=== PATIENT | female | born 1960 | race Caucasian/White ===

== ENCOUNTER → 2018-02-08 17:07 | Outpatient (CLI) | payer OTHER, SELFPAY ==
[2018-02-08 18:20] LABS: Thyroid Stim Hormone (TSH) 2.57 uIU/mL (0.358-3.74)
[2018-02-10 11:33] LABS: Hep C Antibodies <0.1 s/co ratio (0.0-0.9)
== END ==
PROVIDERS: Family Provider Family Medicine Geriatric Medicine; PCP Family Medicine Geriatric Medicine; Visit Provider Family Medicine Geriatric Medicine
DX: R53.83 Other fatigue (principal); Z13.89 Encounter for screening for other disorder
CPT/HCPCS: 36415; 84443; 86803

== ENCOUNTER → 2018-03-03 15:49 | Outpatient (CLI) | payer OTHER, SELFPAY | PROVIDERS: Referring Provider Otolaryngology; Visit Provider Otolaryngology | DX: J01.90 Acute sinusitis, unspecified (principal) | CPT/HCPCS: 87070; 87077; 87205 ==

== ENCOUNTER → 2018-03-30 13:15 | Outpatient (CLI) | payer OTHER, SELFPAY ==
--- NOTE | 2018-03-30 13:17 | CT_ITS ---
STUDY: CT MAXILLOFACIAL SINUSES REASON FOR EXAM: Female, 58 years old. Chronic sinusitis, rhinoplasty as teenager, right-sided headache and right-sided sinus drainage RADIATION DOSAGE (If Supplied By Facility): CTDIvol = ( 33.06 ) mGy, DLP = ( 784.26 ) mGycm TECHNIQUE: The patient was scanned in a multi detector CT scanner. High resolution axial imaging was performed without the administration of intravenous contrast material. Sagittal and coronal images were reconstructed. Individualized dose optimization techniques were used for this CT. COMPARISON: None. FINDINGS: FRONTAL SINUSES: There is near complete opacification of the right frontal sinus. The left frontal sinus is normal. ETHMOIDAL SINUSES: There is opacification of multiple anterior right ethmoid air cells. The left ethmoid air cells are preserved. MAXILLARY SINUSES: There is a polypoid defect of the left maxillary sinus measuring 1.5 cm consistent with polyp versus mucoid retention cyst. There is complete opacification of the right maxillary sinus. There is an expansile mass of the right maxillary sinus causing medial bowing of the medial maxillary sinus wall extending into the right nasal cavity. There are several small metallic foreign bodies in the medial right maxillary sinus wall. SPHENOIDAL SINUSES: Normal aeration, without mucosal inflammatory disease. There is absence of the middle nasal turbinates bilaterally. The inferior nasal turbinates are atrophic bilaterally. The anterior nasal septum is displaced slightly to the left of midline. There is compromise of the anterior right nasal cavity. The visualized bilateral orbital contents are normal. CT/Sinus/Facial Bone IMPRESSION: There is complete opacification of the right maxillary sinus, which contains an expansile mass causing medial bowing of the medial maxillary sinus wall extending into the right nasal cavity. This would more likely represent benign process such as mucocele. There are several small metallic foreign bodies in the medial right maxillary sinus wall. There is a 1.5 cm polypoid filling defect of the left maxillary sinus consistent with polyp versus mucoid retention cyst. There is near complete opacification of the right frontal sinus and opacification of multiple anterior right ethmoid air cells. There is absence of the middle nasal turbinates bilaterally, and atrophic inferior nasal turbinates bilaterally. The anterior nasal septum is slightly displaced to the left of midline. There is airway compromise of the anterior right nasal cavity. MRI is recommended for further evaluation. Electronically Signed: Gallito Holley MD at 16:10 EST , Service support ,
== END ==
PROVIDERS: Family Provider Family Medicine Geriatric Medicine; PCP Family Medicine Geriatric Medicine; Referring Provider Otolaryngology; Visit Provider Otolaryngology
DX: J32.9 Chronic sinusitis, unspecified (principal); J33.9 Nasal polyp, unspecified
CPT/HCPCS: 70486

== ENCOUNTER → 2018-04-08 21:07 | Outpatient (CLI) | payer OTHER, SELFPAY ==
[2018-04-08 12:48] VITALS: BMI 24.9
[2018-04-14 19:49] LABS: HPV APTIMA, High Risk Negative (Negative)
== END ==
PROVIDERS: Family Provider Family Medicine Geriatric Medicine; PCP Family Medicine Geriatric Medicine; Referring Provider Nurse Practitioner Women's Health; Visit Provider Nurse Practitioner Women's Health
DX: Z12.4 Encounter for screening for malignant neoplasm of cervix (principal)
CPT/HCPCS: 87624; 88175; G0145

== ENCOUNTER → 2018-04-27 06:25 | Outpatient (CLI) | payer OTHER, SELFPAY ==
[2018-04-21 14:56] VITALS: BMI 24.9
[2018-04-27 07:14] LABS: Anion Gap 9 (5-15); BUN 13 mg/dL (7-18); BUN/Creat Ratio 16.4 RATIO (10-20); Calcium,Total 8.8 mg/dL (8.5-10.1); Chloride 107 mmol/L (98-107); Creatinine, Serum 0.79 mg/dL (0.55-1.02); EST Glomerular Filtration Rate 79 mL/min (>60); Est Glom Filt Rate - Afr Amer 95 mL/min (>60); Glucose 91 mg/dL (74-106); Sodium Level 143 mmol/L (136-145)
== END ==
PROVIDERS: Family Provider Family Medicine Geriatric Medicine; PCP Family Medicine Geriatric Medicine; Referring Provider Internal Medicine Cardiovascular Disease; Visit Provider Internal Medicine Cardiovascular Disease
DX: E87.6 Hypokalemia (principal)
CPT/HCPCS: 36415; 80048

== ENCOUNTER → 2018-05-04 06:34 | Outpatient (CLI) | payer OTHER, SELFPAY ==
[2018-04-21 14:56] VITALS: BMI 24.9
--- NOTE | 2018-05-04 06:36 | ECHOCS_ITS ---
Reason For Study: MURMUR Procedure This was a 2D Doppler, Color Flow transthoracic echocardiogram. The study was technically difficult. Contrast injection was performed. Exam performed in department. Left Ventricle Normal LV size. Left ventricular systolic function is normal. The estimated ejection fraction is 70 %. Diastolic function is indeterminate. No regional wall motion abnormalities noted. Right Ventricle Normal RV size. Normal systolic function. Atria Normal left atrium. Normal right atrium. No doppler evidence for ASD. Mitral Valve There is no mitral annular calcification. Normal mitral valve. Trivial mitral valve insufficiency. Tricuspid Valve Normal tricuspid valve. Trivial tricuspid valve insufficiency. Unable to estimate RV systolic pressure/pulmonary artery pressure due to technically difficult study. Aortic Valve Trisinus/trileaflet aortic valve. Normal aortic valve. Pulmonic Valve The pulmonic valve is not well visualized. Trivial pulmonic valve insufficiency. Great Vessels Normal sized aortic root. Pericardium/Pleural No pericardial effusion. Medication Upnxhinp5ea given slow IV push to enhance endocardial definition. MMode/2D Measurements & Calculations LVIDd: 4.8 cm IVSd: 0.68 cm Ao root diam: 2.9 cm LVIDs: 2.9 cm LVPWd: 0.82 cm FS: 38.4 % LAV(MOD-bp): 40.0 ml EDV(MOD-sp4): 70.5 ml EDV(MOD-sp2): 82.3 ml LAV(MOD-bp) Indexed: 23.4 ml/m2 ESV(MOD-sp4): 16.6 ml EF(MOD-sp2): 74.5 % LAV(MOD-sp2): 34.9 ml EF(MOD-sp4): 76.5 % LAV(MOD-sp4): 43.6 ml SV(MOD-sp4): 54.0 ml SV(MOD-sp2): 61.3 ml LA A4 area: 17.4 cm2 LA dimension(2D): 3.7 cm RA A4 area: 12.1 cm2 Time Measurements MV dec time: 0.27 sec Doppler Measurements & Calculations MV E max aly: 95.6 cm/sec Lat Peak E' Aly: 8.9 cm/sec Med Peak E' Aly: 9.8 cm/sec MV A max aly: 77.5 cm/sec E/E' lat: 10.7 E/E' med: 9.7 MV E/A: 1.2 Ao V2 max: 144.0 cm/sec LV V1 max: 133.8 cm/sec PA V2 max: 139.5 cm/sec Ao max P.3 mmHg LV V1 max P.2 mmHg Interpretation Summary The study was technically difficult. Contrast injection was performed. Left ventricular systolic function is normal. The estimated ejection fraction is 70 %. Trivial mitral valve insufficiency. Trivial tricuspid valve insufficiency. Trivial pulmonic valve insufficiency. Unable to estimate RV systolic pressure/pulmonary artery pressure due to technically difficult study. Diastolic function is indeterminate. Ordering Physician: Clovis Garcia Referring Physician: Terry Mcdonnell Chi Performed By: Krys Rivera, JAX, RVT
--- NOTE | 2018-05-04 15:46 | STRESSREP ---
Stress Test Report Date: 05/04/2018 Procedure: Exercise tolerance test/imaging study Indications: Abnormal ECG Consent: Per the patient Procedure: The patient exercised on a Jerel protocol for 4 minutes completing Stage I 1 minute of Stage II achieving a peak heart rate of 153 bpm (95 % predicted maximal heart rate) with a peak blood pressure 182/70 mmHg and a peak MET capacity of 5 METs. The baseline ECG demonstrated normal sinus rhythm; PACs; nonspecific ST/T wave abnormality. The peak exercise ECG demonstrated continued ST/T wave abnormality-more prominent ST segment changes compared to baseline. There were occasional PACs pretest; occasional PVCs and ventricular couplets during exercise and early recovery. The functional capacity was considered decreased. There was no complaint of chest discomfort during exercise or recovery. The examination was discontinued secondary to dyspnea. Impression: 1. Technically adequate (percent predicted maximal heart rate greater than 85%) exercise tolerance test 2. Peak exercise ECG with continued ST/T wave abnormality-more prominent ST segment changes compared to baseline 3. There were occasional PACs pretest; occasional PVCs and ventricular couplets during exercise and early recovery 4. Nuclear images pending Comment: Heart rate response compatible with a deconditioned heart rate response Myocardial perfusion imaging study: Technique: The patient was injected with 11 mCi of technetium 99m Cardiolite and subsequently rest SPECT Cardiolite nuclear imaging was obtained in the horizontal long, vertical long, and short axis views. The patient exercised on a Jerel protocol for 4 minutes completing Stage I and 1 minute of Stage II achieving a peak heart rate of 153 bpm (95 % predicted maximal heart rate) with a peak blood pressure 182/70 mmHg and a peak MET capacity of 5 METs. The patient was injected with 32.3 mCi of technetium 99m Cardiolite and subsequently stress SPECT Cardiolite nuclear imaging was obtained in the horizontal long, vertical long, and short axis views. A gated Cardiolite study at peak stress was obtained. Interpretation: Rest and stress SPECT Cardiolite nuclear imaging status post realignment, normalization, and attenuation correction, demonstrates the appearance of relative uniform tracer uptake and myocardial perfusion appearing within normal limits. There is end systolic thickening and brightening. The gated Cardiolite study demonstrates myocardial thickening and inward wall motion. The reported LVEF is 90 %. Impression: 1. Rest and stress SPECT Cardiolite nuclear imaging demonstrate relative uniform tracer uptake and myocardial perfusion appearing within normal limits. 2. The gated Cardiolite study reports an LVEF of 90 %. This note was generated with [employer] software. It may contain incorrect words, spelling, and punctuation that were not noted in checking the note before signing.
--- OUTSIDE RECORDS SUMMARY | 2018-06-20 05:11 | XMS RPT_ITS ---
:1960 Author Organization OHIP Support Name Relationship Address Phone VIOLETA BANERJEE Unavailable [address] + [place] [address] [facility] Unavailable [address] + [place] [address] WOHLFORD, NICO Unavailable [address] + [place] [address] VIOLETA BANERJEE Unavailable [address] + [place] [address] [facility] Unavailable [address] + [place] [address] WOHLFORD, NICO Unavailable [address] + [place] [address] VIOLETA BANERJEE Unavailable [address] + [place] . [facility] Unavailable [address] + [place] [address] WOHLFORD, NICO Unavailable [address] + [place] [address] VIOLETA BANERJEE Unavailable [address] + [place] . [facility] Unavailable [address] + [place] [address] WOHLFORD, NICO Unavailable [address] + [place] [address] VIOLETA BANERJEE Unavailable [address] + [place] . [facility] Unavailable [address] + [place] [address] WOHLFORD, NICO Unavailable [address] + [place] [address] VIOLETA BANERJEE Unavailable [address] + [place], [place] . H Unavailable [address] + [place] [address] WOHLFORD, NICO Unavailable [address] + [place] [address] BANERJEE, VIOLETA Unavailable [address] + [place] [facility] Unavailable [address] + [place] [address] WOHLFORD, NICO Unavailable [address] + [place] [address] BANERJEE, VIOLETA Unavailable Unavailable + [place] [facility] Unavailable [address] + [place] [address] WOHLFORD, NICO Unavailable [address] + [place] [address] BANERJEE, VIOLETA Unavailable Unavailable + [place] [facility] Unavailable [address] + [place] [address] WOHLFORD, NICO Unavailable [address] + [place] [address] BANERJEE, VIOLETA Unavailable Unavailable + [place] [facility] Unavailable [address] + [place] [address] WOHLFORD, NICO Unavailable [address] + [place] [address] BANERJEE, VIOLETA Unavailable Unavailable + [place] [facility] Unavailable [address] + [place] [address] WOHLFORD, NICO Unavailable [address] + [place] [address] BANERJEE, VIOLETA Unavailable . + ., . . [facility] Unavailable [address] + [place] [address] WOHLFORD, NICO Unavailable [address] + [place] [address] BANERJEEGRETELVIOLETA Unavailable Unavailable + [facility] Unavailable [address] + [place] [address] WOHLFORD, NICO Unavailable [address] + [place] [address] GRETEL BANERJEENIFER Unavailable Unavailable + [facility] Unavailable [address] + [place] [address] WOHLFORD, NICO Unavailable [address] + [place] [address] BANERJEEGRETELVIOLETA Unavailable Unavailable + [facility] Unavailable [address] + [place] [address] WOHLFORD, NICO Unavailable [address] + [place] [address] BANERJEEGRETELVIOLETA Unavailable . + ., [place] . [facility] Unavailable [address] + [place] [address] WOHLFORD, NICO Unavailable [address] + [place] [address] ERON BANERJEEFER Unavailable Unavailable + [facility] Unavailable [address] + [place] [address] WOHLFORD, NICO Unavailable [address] + [place] [address] [facility] Unavailable [address] + [place] [address] WOHLFORD, NICO Unavailable [address] + [place] [address] [facility] Un[address] + [place] [address] WOHLFORD, NICO Unavailable [address] + [place] [address] Care Team Providers Name Role Phone Clovis Garcia Attending Unavailable Clovis Garcia Referring Unavailable Ingris Helton Attending Unavailable Clovis Garcia Attending Unavailable Moodispaw, Clovis Referring Unavailable Sathya, Terry Chi Primary Care Unavailable Moodispaw, Clovis Attending Unavailable Moodispaw, Clovis Referring Unavailable Sathya, Terry Chi Primary Care Unavailable Moodispaw, Clovis Attending Unavailable Moodispaw, Clovis Referring Unavailable Sathya, Terry Chi Primary Care Unavailable Radha, Clovis Attending Unavailable Ingris Helton Attending Unavailable Ronaldo Luciano Attending Unavailable Benja, Stanford Referring Unavailable BishopMaria T Attending Unavailable Sathya, Terry Chi Primary Care Unavailable BishopLilianay Referring Unavailable Ingris Carlisle Attending Unavailable Sathya, Terry Chi Referring Unavailable Benja, Stanford Attending Unavailable Benja, Stanford Referring Unavailable Sathya, Terry Chi Primary Care Unavailable BishopLilianay Attending Unavailable Sathya, Terry Chi Referring Unavailable Benja, Stanford Attending Unavailable Benja, Stanford Referring Unavailable Sathay, Terry Chi Primary Care Unavailable Benja, Stanford Attending Unavailable Benja, Stanford Referring Unavailable Sathya, Terry Chi Primary Care Unavailable Benja, Stanford Attending Unavailable Benja, Stanford Referring Unavailable Sathya, Terry Chi Attending Unavailable Sathya, Terry Chi Referring Unavailable Sathya, Terry Chi Primary Care Unavailable ASSESSMENT, HEALTH RISK Attending Unavailable ASSESSMENT, HEALTH RISK Referring Unavailable Sathya, Terry Chi Primary Care Unavailable Marisela Comer Attending Unavailable Ingris Carlisle Attending Unavailable Sathya, Terry Chi Referring Unavailable Moodispaw, Clovis Attending Unavailable [place], Clovis Referring Unavailable Sathya, Terry Chi Primary Care Unavailable PROBLEMS PROBLEMS DATE TYPE CONDITION / CODE ATTENDING STATUS SOURCE 06/09/2018 Unknown I49.3 - Ventricular Carlisle, Active [place] premature [facility] depolarization / Hospital I49.3(ICD-10) Repository 06/09/2018 Unknown E78.5 - Carlisle, Active [place] Hyperlipidemia, [facility] unspecified / Hospital E78.5(ICD-10) Repository 06/01/2018 Unknown R94.31 - Abnormal [place], Active [place] electrocardiogram [facility] [ECG] [EKG] / Hospital R94.31(ICD-10) Repository 06/01/2018 Unknown R06.09 - Other forms [place], Active [place] of dyspnea / [facility] R06.09(ICD-10) Hospital Repository 06/01/2018 Unknown R94.39 - Abnormal [place], Active [place] result of other [facility] function study / Repository R94.39(ICD-10) 05/27/2018 Unknown I10 - Essential Carlisle, Active [place] (primary) hypertension Ingris [facility] / I10(ICD-10) Hospital Repository 04/27/2018 Unknown E87.6 - Hypokalemia / [place], Active [place] E87.6(ICD-10) [facility] Hospital Repository 04/21/2018 Unknown R01.1 - Cardiac [place], Active [place] murmur, unspecified / [facility] R01.1(ICD-10) Hospital Repository 04/21/2018 Unknown Z01.810 - Encounter [place], Active [place] for preprocedural [facility] examination / Repository Z01.810(ICD-10) 04/09/2018 Unknown Z12.4 - Encounter for Bishop, Active [place] screening for [facility] malignant neoplasm of Hospital cervix / Z12.4(ICD-10) Repository 04/08/2018 Unknown Z12.31 - Encounter for Brian, Active [place] screening mammogram [facility] for malignant neoplasm Hospital of breast / Repository Z12.31(ICD-10) 02/08/2018 Unknown R53.83 - Other fatigue Sathya, Terry Chi Active [place] / R53.83(ICD-10) [facility] Hospital Repository 02/08/2018 Unknown Z13.89 - Encounter for Sathya, Terry Chi Active [place] screening for other Community disorder / Hospital Z13.89(ICD-10) Repository PROCEDURES PROCEDURES No Procedure Records FoundRESULTS RESULTS OPERATIVE REPORT Observed: 06/14/2018 Status: F Source: [place] 9:05 AM [facility] [place] [facility] Medical Records Department [address] [place] [address] Operative Report 06/14/18 0855 MR#: [id number] Acct: [id number] Name: BEAR FRANCISCO Rep #: [id number] : 1960 58 From: Stanford Yousif MD PCP: Sathya RUTHERFORD,Terry Heller Status: REG SDC Y Location: [place] [address] Report of Operation Date of Procedure: 06/14/18 Pre-Operative Diagnosis: right chronic sinusitis. right fungal sinusitis Post-Operative Diagnosis: same Surgery/Procedure Performed:: Right maxillary antrostomy with tissue removal. Right total ethmoidectomy. Use of navigation Description of Surgical Findings:: fungus in right maxillary sinus Type of Anesthesia:: General Anesthesiologist: Sincere Wagner Specimen's removed: right sinus contents-tissue and maxillary sinus contents Estimated Blood Loss (mL): minimal Description of Procedure: The patient was taken to the OR on 06/14/18. She was was placed in the supine position on the OR table. She was given sufficient general endotracheal anesthesia. The table was elevated 30 degrees. The patient was draped steriley. The [employer] Navigation stickers and head piece were placed on the patient. The navigation was verified per protocol. Zero, 30 and 70 rigid nasal endoscopes were used throughout the entire case. The right nose was decongested with afrin pledgets. 1% lidocaine with epinephrine (1:[id number]) was injected into the right middle turbinate, uncinate process and right middle meatal polyp. After vasoconstriction. The polyp was removed using a sinus shaver. It was chased up to the superior uncinate. A ball tipped sinus seeker was placed in the maxillary sinus. The antrostomy was created with a back biter. The uncinate process was then removed with a sinus shaver. There was obvious fungal elements filling the maxillary sinus. This was removed with suction and Blakesly-Wile forceps. This was sent separately from the tissue in saline. The maxillary sinus mucosa was quite hypertrophic/inflamed. I irrigated the maxillary sinus with saline and the irrigant was suctioned from the nasopharynx. Next the ethmoid bulla was opened and anterior and posterior ethmoidectomy was carried out with a curette and sinus shaver. Sparing suction cautery was used. Hemostasis was achieved with afrin pledgets and Eleanor powder. The patient was then awoken and brought to the recovery room in stable condition. Blood loss minimal, replacement none. Sponge needle and instrument count were correct at the end of the procedure. 06/14/18904 <Electronically signed by Stanford Yousif MD> Date Stanford Yousif MD CC: Stanford Yousif MD; Terry Mcdonnell MD Signed DISCHARGE INSTRUCTION Observed: 06/14/2018 Status: F Source: [place] 7:36 AM [facility] REPOSITORY [facility] Medical Records Department [address] [place] [address] Instructions for Home/Discharge Instructions 06/14/18 0734 MR#: [id number] Acct: [id number] Name: BEAR FRANCISCO Rep #: [id number] : 1960 58 From: Stanford Yousif MD PCP: Terry Mcdonnell MD, Chi Status: REG [facility] [place] You will use the following diet at home:: No restrictions, Regular Discharge Activity: - - No noseblowing or strenuous activity May shower in (days): 0 Additional Activity Instructions:: Start irrigating on 06/15/18. Irrigate at least 4x/day. Allergies/Adverse Reactions: Allergies Sulfa (Sulfonamide Antibiotics) Allergy (Verified 06/09/18 12:54) Unknown Medications to take at Discharge Multivitamin [Multiple Vitamins] 1 ea PO DAILY 04/07/18 doxycycline hyclate 100 mg capsule 100 mg PO DAILY 04/08/18 aspirin 81 mg tablet,delayed release 81 mg PO DAILY 05/06/18 atorvastatin 20 mg tablet 20 mg PO DAILY #30 tab 05/06/18 metoprolol succinate ER 25 mg tablet,extended release 24 hr 25 mg PO DAILY #90 tab 06/09/18 Primary Care Physician: Terry Mcdonnell Chi, MD [Primary Care Provider] - Test Results: Test results from this visit will be discussed in further detail at your follow-up appointment, if applicable. 06/14/18 0736 <Electronically signed by Stanford Yousif MD> Date Stanford Yousif MD CC: Terry Mcdonnell MD Signed ETHMOID TISSUE Observed: 06/14/2018 Status: F Source: [place] 7:30 AM [facility] [place] Patient: BEAR FRANCISCO : 1960 (58/F) Acct Num: [id number] Phys: Stanford Yousif MD Unit Num: [id number] Loc: [facility] [place] Specimen: [id number] Received: 06/14/18923 Spec Type: ETH TISS TISSUES 1 TISSUES: A. Ethmoid sinus, NOS B. Ethmoid sinus, NOS COMMENT A AND B. PASF stain for fungal organisms is positive. Matched control is appropriate. GROSS DESCRIPTION A - Received in fixative is one container labeled with the patient's name and designated right maxillary sinus contents. The specimen consists of multiple irregular fragments of red-jiménez soft tissue that in aggregate measure 2.5 x 2 x 0.1 cm. The specimen is totally submitted in one cassette after decalcification. B - Received in fixative is one container labeled with the patient's name and designated right sinus contents. The specimen consists of multiple irregular fragments of light pink-jiménez soft tissue that in aggregate measure 3 x 2 x 0.2 cm. The specimen is totally submitted in one cassette after decalcification. / AM:daja 06/14/18 TC:3 CPT: 97538 x2, 73344 x2, 55818 x2 HEADER OPERATION: Endoscopic, maxillary antrostomy, tissue removal, total ethmoid PRE-OP DIAGNOSIS: Chronic sinusitis, polyp of nasal cavity TISSUE SUBMITTED: A. Right maxillary sinus contents in saline, B. Right sinus tissue in formalin MICROSCOPIC DESCRIPTION Slides are reviewed. MICROSCOPIC DIAGNOSIS A. Right maxillary sinus contents, excision: Consistent with chronic sinusitis. 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 Minute fragments of bone with no pathologic change. See comment. B. Right sinus contents, excision: Consistent with chronic sinusitis. 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 Minute fragments of bone with no pathologic change. See comment. AM:daja 06/15/18 Signed Shun Villagomez DO 06/15/18 <signature on file> Performed By: #### PETH #### [facility] [address] [place], [address] CARDIOLOGY VISIT Observed: 06/09/2018 Status: F Source: [place] REPORT 1:33 PM [facility] REPOSITORY [facility] [address] [place] [address] OFFICE VISIT Date of Service: 06/09/18 MR#: [id number] Acct: [id number] Name: BEAR FRANCISCO Rep #: [id number] : 1960 Provider: Ingris Carlisle Age/Sex: 58/F [place] [facility] Status: Signed HPI HPI Details: BEAR FRANCISCO, is a 58 F who presents to the office today for a cardiovascular follow-up. She is established with us for an abnormal EKG. She did undergo a stress test which was noted to be abnormal. She underwent a heart catheterization which did not demonstrate any ischemia. She was started on her metoprolol for her palpitations. She states that she feels much better with this. She also was started on cholesterol-lowering medication. From a cardiac standpoint, patient is doing well. She does not have any chest discomfort/heaviness/tightness. Her exercise tolerance is stable for her age. She does not have any worsening symptoms of shortness of breath. She does not have any orthopnea. She denies PND. She does not have any symptoms of congestive heart failure. She does not have any palpitations that she is aware of. She does not have any lightheadedness or dizziness. She does not have any near-syncope or syncope. She does not have any lower extremity edema. She does not have any symptoms of claudication. Intake Vital Signs06/09/18 Height 5 ft 4 in 06/09/18 Weight: 146 lb 06/09/18 Body Mass Index (BMI) 25.0 06/09/18 Blood Pressure 124/62 H H 06/09/18 Blood Pressure Location Lt brachial Intake Visit Reasons: FU Heart cath on 06/01/18\PF Processing Mgr Required: No Accompanied by: none Is patient in pain?: No Allergies Sulfa (Sulfonamide Antibiotics) Allergy (Verified 06/09/18 12:54) Unknown Medications Multivitamin [Multiple Vitamins] 1 ea PO DAILY 04/07/18 [History Confirmed 06/09/18] doxycycline hyclate 100 mg capsule 100 mg PO DAILY 04/08/18 [History Confirmed 06/09/18] aspirin 81 mg tablet,delayed release 81 mg PO DAILY 05/06/18 [History Confirmed 06/09/18] atorvastatin 20 mg tablet 20 mg PO DAILY #30 tab 05/06/18 [Rx Confirmed 06/09/18] metoprolol succinate ER 25 mg tablet,extended release 24 hr 25 mg PO DAILY #90 tab 06/09/18 [Rx Confirmed 06/09/18] PFSH Medical History Ventricular ectopy (Acute) Dyspnea on exertion (Acute) Abnormal stress test (Acute) Abnormal electrocardiogram [ECG] [EKG] (Acute) Hyperlipemia (Chronic) Chronic sinusitis (Chronic) History of Guillain-Unity syndrome (Chronic) Surgical History History of cardiac catheterization (Resolved 06/01/18) History of tubal ligation (Resolved) Nasal septal deviation (Resolved) Family History Father Cancer leukemia Social History Smoking Status: Former smoker alcohol intake: current details: social substance use type: does not use caffeine: Yes what type of physical activity do you participate in: walking seatbelt use: always do you feel safe at home: Yes 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 Appearance: cooperative, healthy appearing, comfortable, well developed and well groomed Nutritional Appearance: thin Orientation: alert, awake and oriented x3 Head Head: normal to inspection, normocephalic and atraumatic Ears: hearing grossly normal bilaterally Nose: external nose normal Face and Sinus: face symmetric Mouth: oral mucosae normal Teeth and gingiva: fair dentition Eyes Eyelids: eyelids normal Conjunctivae: conjunctivae normal Pupils: PERRL EOM: EOM intact bilaterally Neck Neck: normal visual inspection and full ROM Carotids: normal carotid upstroke Chest Chest inspection: normal inspection of the chest, symmetric chest movement and normal respiratory effort Auscultation: Bilateral: Clear to Auscultation Cardio Palpation: normal PMI Rate: regular rate Rhythm: regular rhythm Heart sounds: S1 normal, S2 normal and murmur Murmur: Grade 2/6, soft, mid systolic and LLSB GI GI: normal to inspection, bowel sounds present and soft Neuro General: alert, awake, oriented x3, moves all extremities, no focal sensory deficit and no focal motor deficits Skin Skin: no rashes or lesions noted Extremities Pulses: Normal: Right Femoral Pulse, Left Femoral Pulse, Right Dorsalis Pedis Pulse, Left Dorsalis Pedis Pulse, Right Posterior Tibial Pulse, Left Posterior Tibial Pulse, Right Radial Pulse, Left Radial Pulse Lower Extremity Edema: None: Bilateral Psych Psychological: normal affect Assessment AND Plan 1. Ventricular ectopy I49.3 Plan Patient will continue with current dose of metoprolol. She states that her symptoms are much better Orders Orders: 2. Hyperlipidemia, unspecified hyperlipidemia type E78.5 Plan Patient was recently started on cholesterol-lowering medication. Patient will have her lipids rechecked in the near future. Orders Orders: 3. Abnormal electrocardiogram [ECG] [EKG] R94.31 Plan Patient did undergo a heart catheterization for abnormal EKG and stress test. This did not demonstrate any significant findings. Plan Detail Other Medications Refilled: Additional Comments Thank you for allowing us to participate in patient's plan of care, if you have any questions please do not hesitate to call. This note was generated using a voice recognition system and there may be incorrect words, spelling or punctuation errors that were not noted when reviewing the office note prior to saving. Follow Up 1 Year (PFM) Coding Level of Care Code Off vis,est,level 3 Diagnoses Ventricular ectopy I49.3 Hyperlipidemia, unspecified hyperlipidemia type E78.5 Hyperlipidemia type: unspecified Abnormal electrocardiogram [ECG] [EKG] R94.31 Coding Level of Care Code Off vis,est,level 3 Diagnoses Ventricular ectopy I49.3 Hyperlipidemia, unspecified hyperlipidemia type E78.5 Hyperlipidemia type: unspecified Abnormal electrocardiogram [ECG] [EKG] R94.31 Supplemental Info Supplemental Information Diagnostics Electrocardiogram 04/21/18 Echocardiogram 05/04/18 Stress Test Nuclear Medicine 05/04/18 Stress Test 05/04/18 Cardiac Catheterization 06/01/18 Chest X-Ray 05/27/18 06/09/18 1333 <Electronically signed by Ingris HANSEN> Date Ingris HANSEN [facility] Signature: Date (if applicable) CC: Terry Mcdonnell MD CBC-COMPLETE BLOOD CNT Collected: 06/01/2018 Status: F Source: [place] NO DIFF 7:51 AM [facility] [place] TYPE CODE TESTS RESULT OUT OF RANGE REFERENCE UNITS LAB L100.1000 4.4-11.0 K/mm3 Normal WBC 4.5 LAB L100.1200 4.2-5.4 M/mm3 Low RBC 4.14 LAB L100.1300 12.0-15.0 g/dl Low HGB 11.9 LAB L100.1400 37-47 % Normal HCT 38.0 LAB L100.1500 81-99 fL Normal MCV 91.8 LAB L100.1600 27.0-32.0 pg Normal MCH 28.7 LAB L100.1700 32-36 g/gl Low MCHC 31.3 LAB L100.1810 11.6-14.6 % Normal RDW CV 12.8 LAB L100.1820 35.1-43.9 fl Normal RDW SD 43.2 LAB L100.1900 150-450 K/mm3 Normal PLT 340 LAB L100.2000 6.2-12.0 fl Normal MPV 10.6 Performed By: #### L100.0500 #### [facility] [address] [place], [address] BASIC METABOLIC Collected: 06/01/2018 Status: F Source: [place] PROFILE (BMP) 7:51 AM [facility] [place] TYPE CODE TESTS RESULT OUT OF RANGE REFERENCE UNITS LAB L501.0100 74-106 mg/dL High GLU 113 Result Comment: Fasting Glucose result from 100 to 125 mg/dL suggests IMPAIRED HOMEOSTASIS per A.D.A. criteria. Please note revised GLUCOSE reference range effective 2017. LAB L501.1000 7-18 mg/dL Normal BUN 11 LAB L501.1100 0.55-1.02 mg/dL Normal CREAT,SERUM 0.64 Result Comment: The validity of the calculated GFR AND GFRAA in patients over 70 years has not been determined. Clinical correlation is essential. LAB L501.1110 >60 mL/min Normal EST GFR 100 Result Comment: Non- GFR Calc LAB L501.1115 >60 mL/min Normal EST GFR - AA 121 Result Comment: GFR Calc LAB L501.1255 ml/min Normal Estimated CRCL 80.72 LAB L501.1300 10-20 RATIO Normal BUN/CRE 17.1 LAB L501.2200 8.5-10 mg/dL Normal .1 CA 9.1 LAB L501.5300 136-14 mmol/L Normal 5 NA 142 LAB L501.5600 3.5-5. mmol/L Normal 1 K 3.8 LAB L501.5900 98-107 mmol/L High CL 110 LAB L501.6100 21.0-3 mmol/L Normal 2.0 CO2 25.0 LAB L501.6200 5-15 Normal GAP 7 Performed By: #### L500.2500 #### [facility] [address] [place], [address] PROTHROMBIN TIME W/INR Collected: 06/01/2018 Status: F Source: [place] 7:51 AM [facility] [place] TYPE CODE TESTS RESULT OUT OF RANGE REFERENCE UNITS LAB L300.4150 11.7-14.9 SECONDS Normal PROTIME 13.7 LAB L300.4200 Normal INR 1.1 Performed By: #### L300.3900, L300.4310 #### [facility] [address] [place], [address] PARTIAL THROMBOPLAST Collected: 06/01/2018 Status: F Source: [place] TIME 7:51 AM [facility] [place] TYPE CODE TESTS RESULT OUT OF RANGE REFERENCE UNITS LAB L300.4310 24.1-36.2 Seconds Normal PTT 34.0 Performed By: #### L300.3900, L300.4310 #### [facility] [address] [place], [address] CARDIOLOGY VISIT Observed: 05/27/2018 Status: F Source: [place] REPORT 3:18 PM [facility] [place] [facility] [address] [place] [address] OFFICE VISIT Date of Service: 05/27/18 MR#: [id number] Acct: [id number] Name: BEAR FRANCISCO Rep #: [id number] : 1960 Provider: Ingris Carlisle Age/Sex: 58/F [place] [facility] [place] Signed HPI HPI Details: BEAR FRANCISCO, is a 58 F who presents to the office today for an update H AND P for an upcoming heart cath. Pt recently established with us for an abnormal EKG that was noted on a pre-op assessment for sinus surgery. She underwent a stress test which demonstrated EKG changes, she is scheduled for a diagnostic heart cath. She was started on metoprolol, she sts that since starting this medication she feels better. She sts that she did not know she felt bad. She does not note palpitations while working as she previously did. She does not have any chest pain/heaviness. She does not have anyu worsening SOB. She does not have any lightheadedness/dizziness. She does not have any edema. Intake Vital Signs05/27/18 Height 5 ft 4 in 05/27/18 Weight: 145 lb 05/27/18 Body Mass Index (BMI) 24.9 05/27/18 Blood Pressure 138/84 H 05/27/18 Blood Pressure Location Lt brachial Intake Visit Reasons: Update H AND P Processing Mgr Required: No Accompanied by: none Is patient in pain?: No Allergies Sulfa (Sulfonamide Antibiotics) Allergy (Verified 05/27/18 14:12) Unknown Medications Multivitamin [Multiple Vitamins] 1 ea PO DAILY 04/07/18 [History Confirmed 05/27/18] doxycycline hyclate 100 mg capsule 100 mg PO DAILY 04/08/18 [History Confirmed 05/27/18] aspirin 81 mg tablet,delayed release 81 mg PO DAILY 05/06/18 [History Confirmed 05/27/18] atorvastatin 20 mg tablet 20 mg PO DAILY #30 tab 05/06/18 [Rx Confirmed 05/27/18] metoprolol succinate ER 25 mg tablet,extended release 24 hr 25 mg PO DAILY #30 tab 05/06/18 [Rx Confirmed 05/27/18] clopidogrel 75 mg tablet 75 mg PO DAILY #30 tab 05/27/18 [Rx Confirmed 05/27/18] PFSH Medical History Ventricular ectopy (Acute) Dyspnea on exertion (Acute) Abnormal stress test (Acute) Abnormal electrocardiogram [ECG] [EKG] (Acute) Hyperlipemia (Chronic) Chronic sinusitis (Chronic) History of Guillain-Unity syndrome (Chronic) Surgical History History of tubal ligation (Resolved) Nasal septal deviation (Resolved) Family History Father Cancer leukemia Social History Smoking Status: Former smoker alcohol intake: current details: social substance use type: does not use caffeine: Yes what type of physical activity do you participate in: walking seatbelt use: always do you feel safe at home: Yes additional social history: Nico- Retired ROS Const Const: Negative for weakness, fatigue, fever(s) or headache(s) Eyes Eyes: Negative for blind spots, loss of peripheral vision or transient loss of vision ENT ENT: Negative for headache(s), dizziness, tinnitus or Nosebleed/epistaxis Cardio Chest Pain: No Palpitations: No Edema: None Muscle aches with walking: None Resp Respiratory: Negative for SOB with activity, SOB at rest, SOB orthopnea\SOB lying down or Cough GI GI: Negative nausea, vomiting, heartburn or vomiting blood/hematemesis : Negative for hematuria Musc Musc: Negative for muscle aches/ myalgia Neuro Neuro: Negative for weakness, headache(s), dizziness, near syncope, syncope, lightheadedness or orthostatic symptoms Tonny Hematologic/Lymphatic: Negative for easy bleeding Endo Endo: Negative for fatigue Cardiology Exam Const Appearance: cooperative, healthy appearing, comfortable, well developed and well groomed Nutritional Appearance: thin Orientation: alert, awake and oriented x3 Head Head: normal to inspection, normocephalic and atraumatic Ears: hearing grossly normal bilaterally Nose: external nose normal Face and Sinus: face symmetric Mouth: oral mucosae normal Teeth and gingiva: fair dentition Eyes Eyelids: eyelids normal Conjunctivae: conjunctivae normal Pupils: PERRL EOM: EOM intact bilaterally Neck Neck: normal visual inspection and full ROM Carotids: normal carotid upstroke Chest Chest inspection: normal inspection of the chest, symmetric chest movement and normal respiratory effort Auscultation: Bilateral: Clear to Auscultation Cardio Palpation: normal PMI Rate: regular rate Rhythm: regular rhythm Heart sounds: S1 normal, S2 normal and murmur Murmur: Grade 2/6, soft, mid systolic and LLSB GI GI: normal to inspection, bowel sounds present and soft Neuro General: alert, awake, oriented x3, moves all extremities, no focal sensory deficit and no focal motor deficits Skin Skin: no rashes or lesions noted Extremities Pulses: Normal: Right Femoral Pulse, Left Femoral Pulse, Right Dorsalis Pedis Pulse, Left Dorsalis Pedis Pulse, Right Posterior Tibial Pulse, Left Posterior Tibial Pulse, Right Radial Pulse, Left Radial Pulse Lower Extremity Edema: None: Bilateral Psych Psychological: normal affect Assessment AND Plan 1. Essential hypertension I10 Plan BP is elevated today, however at home it is normal. Will have her continue to monitor. 2. Abnormal stress test R94.39 Plan will obtain a diagnostic heart cath, if heart cath demonstrates normal coronary arteries it will be okay to proceed with surgery. If pt requires an intervention, she will need to wait at least one year before proceeding with her sinus surgery. 3. Ventricular ectopy I49.3 Plan Pt will continue with current dose of BB. 4. Hyperlipidemia, unspecified hyperlipidemia type E78.5 Plan Pt was started on low does statin, will continue to monitor. Plan Detail Other Medications New: Additional Comments Thank you for allowing us to participate in patient's plan of care, if you have any questions please do not hesitate to call. This note was generated using a voice recognition system and there may be incorrect words, spelling or punctuation errors that were not noted when reviewing the office note prior to saving. Follow Up 05/27/18 (based on heart cath) Coding Level of Care Code Off vis,est,level 3 Diagnoses Essential hypertension I10 Hypertension type: essential hypertension Abnormal stress test R94.39 Ventricular ectopy I49.3 Hyperlipidemia, unspecified hyperlipidemia type E78.5 Hyperlipidemia type: unspecified Coding Level of Care Code Off vis,est,level 3 Diagnoses Essential hypertension I10 Hypertension type: essential hypertension Abnormal stress test R94.39 Ventricular ectopy I49.3 Hyperlipidemia, unspecified hyperlipidemia type E78.5 Hyperlipidemia type: unspecified Supplemental Info Supplemental Information Echocardiogram in 2018 demonstrated: Left ventricular systolic function is normal. The estimated ejection fraction is 70 %. Trivial mitral valve insufficiency. Trivial tricuspid valve insufficiency. Trivial pulmonic valve insufficiency. Unable to estimate RV systolic pressure/pulmonary artery pressure due to technically difficult study. Diastolic function is indeterminate. Labs LDL Cholesterol 129 mg/dL (0-130) 01/29/18 HDL Cholesterol 66 mg/dL (40-) 01/29/18 Triglycerides 143 mg/dL (-199) 01/29/18 VLDL Cholesterol 29 mg/dL (5-40) 01/29/18 Diagnostics Electrocardiogram 04/21/18 Echocardiogram 05/04/18 Stress Test Nuclear Medicine 05/04/18 Stress Test 05/04/18 Chest X-Ray 05/27/18 05/27/18 1518 <Electronically signed by Ingris HANSEN> Date Ingris HANSEN Cosigner Signature: Date (if applicable) CC: Terry Mcdonnell MD CHEST PA AND LATERAL Observed: 05/27/2018 Status: F Source: [place] 2:55 PM [facility] [place] [facility] Imaging Services [address] [place] [address] [place] [address] Chest PA and Lateral MR#: [id number] Acct: [id number] Name: BEAR FRANCISCO Rep #: [id number] : 1960 F 58 From: Tae Turner MD PCP: Terry Mcdonnell MD, Chi Status: REG CLI Study: Chest PA and Lateral Date of Exam: 05/27/18 Exam# [id number] Ordering Dr: Clovis Garcia MD STUDY: X-RAY CHEST REASON FOR EXAM: Female, 58 years old. Pre-op chest radiograph TECHNIQUE: 2 views COMPARISON: None. FINDINGS: The lungs are clear and expanded. There is no demonstrated pleural abnormality. Normal size heart. Normal mediastinum and urban. Normal visualized pulmonary arteries. Normal visualized aortic arch and descending thoracic aorta. Normal visualized thoracic spine. Normal visualized ribs, clavicles, and shoulders. There is no demonstrated abnormality of the visualized soft tissue structures of the upper abdomen. RAD/Chest PA and Lateral IMPRESSION: Normal x-ray examination of the chest. No acute findings in the lungs Electronically Signed: Tae Turner MD at 7:49 EST Tel , Service support , CC: Clovis Garcia MD; Terry Mcdonnell MD [employer] Storage Architect: Signed STRESS REPORT Observed: 05/04/2018 Status: F Source: [place] 5:57 PM [facility] [place] [facility] Cardiovascular Services [address] [place] [address] MR#: [id number] Acct: [id number] Name: BEAR FRANCISCO Rep #: [id number] : 1960 58 From: Clovis Garcia MD Primary Care: Sathya RUTHERFORD,Terry Heller Status: REG CLI Ordering Dr: Sex: F C Stress Test Report Date: 05/04/2018 Procedure: Exercise tolerance test/imaging study Indications: Abnormal ECG Consent: Per the patient Procedure: The patient exercised on a Jerel protocol for 4 minutes completing Stage I 1 minute of Stage II achieving a peak heart rate of 153 bpm (95 % predicted maximal heart rate) with a peak blood pressure 182/70 mmHg and a peak MET capacity of 5 METs. The baseline ECG demonstrated normal sinus rhythm; PACs; nonspecific ST/T wave abnormality. The peak exercise ECG demonstrated continued ST/T wave abnormality- more prominent ST segment changes compared to baseline. There were occasional PACs pretest; occasional PVCs and ventricular couplets during exercise and early recovery. The functional capacity was considered decreased. There was no complaint of chest discomfort during exercise or recovery. The examination was discontinued secondary to dyspnea. Impression: 1. Technically adequate (percent predicted maximal heart rate greater than 85%) exercise tolerance test 2. Peak exercise ECG with continued ST/T wave abnormality- more prominent ST segment changes compared to baseline 3. There were occasional PACs pretest; occasional PVCs and ventricular couplets during exercise and early recovery 4. Nuclear images pending Comment: Heart rate response compatible with a deconditioned heart rate response Myocardial perfusion imaging study: Technique: The patient was injected with 11 mCi of technetium 99m Cardiolite and subsequently rest SPECT Cardiolite nuclear imaging was obtained in the horizontal long, vertical long, and short axis views. The patient exercised on a Jerel protocol for 4 minutes completing Stage I and 1 minute of Stage II achieving a peak heart rate of 153 bpm (95 % predicted maximal heart rate) with a peak blood pressure 182/70 mmHg and a peak MET capacity of 5 METs. The patient was injected with 32.3 mCi of technetium 99m Cardiolite and subsequently stress SPECT Cardiolite nuclear imaging was obtained in the horizontal long, vertical long, and short axis views. A gated Cardiolite study at peak stress was obtained. Interpretation: Rest and stress SPECT Cardiolite nuclear imaging status post realignment, normalization, and attenuation correction, demonstrates the appearance of relative uniform tracer uptake and myocardial perfusion appearing within normal limits. There is end systolic thickening and brightening. The gated Cardiolite study demonstrates myocardial thickening and inward wall motion. The reported LVEF is 90 %. Impression: 1. Rest and stress SPECT Cardiolite nuclear imaging demonstrate relative uniform tracer uptake and myocardial perfusion appearing within normal limits. 2. The gated Cardiolite study reports an LVEF of 90 %. This note was generated with Percolateation software. It may contain incorrect words, spelling, and punctuation that were not noted in checking the note before signing. 05/04/18 1757 <Electronically signed by Clovis Garcia MD> Date Clovis Garcia MD CC: Clovis Garcia MD; Terry Mcdonnell MD Date Dictated: 05/04/18 1546 Date Transcribed: 05/04/181545 [employer] Storage Architect: PM Signed ECHO, COMPLETE W/ Observed: 05/04/2018 Status: F Source: [place] CONTR[place] 5:37 PM [facility] [place] [facility] Cardiovascular Services [address] [place] [address] Echo Complete W/ Contrast 05/04/18 1042 MR#: [id number] Acct: [id number] Name: BEAR FRANCISCO Rep #: [id number] : 1960 58 From: Clovis Garcia MD Attending Dr: Clovis Garcia MD Status: REG CLI Ordering Dr: Clovis Garcia MD Date: 05/04/18 Location: [facility] Sex: F C Admitted: Reason For Study: MURMUR Procedure This was a 2D Doppler, Color Flow transthoracic echocardiogram. The study was technically difficult. Contrast injection was performed. Exam performed in department. Left Ventricle Normal LV size. Left ventricular systolic function is normal. The estimated ejection fraction is 70 %. Diastolic function is indeterminate. No regional wall motion abnormalities noted. Right Ventricle Normal RV size. Normal systolic function. Atria Normal left atrium. Normal right atrium. No doppler evidence for ASD. Mitral Valve There is no mitral annular calcification. Normal mitral valve. Trivial mitral valve insufficiency. Tricuspid Valve Normal tricuspid valve. Trivial tricuspid valve insufficiency. Unable to estimate RV systolic pressure/pulmonary artery pressure due to technically difficult study. Aortic Valve Trisinus/trileaflet aortic valve. Normal aortic valve. Pulmonic Valve The pulmonic valve is not well visualized. Trivial pulmonic valve insufficiency. Great Vessels Normal sized aortic root. Pericardium/Pleural No pericardial effusion. Medication [id number] given slow IV push to enhance endocardial definition. MMode/2D Measurements AND Calculations LVIDd: 4.8 cm IVSd: 0.68 cm Ao root diam: 2.9 cm LVIDs: 2.9 cm LVPWd: 0.82 cm FS: 38.4 % LAV(MOD-bp): 40.0 ml EDV(MOD-sp4): 70.5 ml EDV(MOD-sp2): 82.3 ml LAV(MOD-bp) Indexed: 23.4 ml/m2 ESV(MOD-sp4): 16.6 ml EF(MOD-sp2): 74.5 % LAV(MOD-sp2): 34.9 ml EF(MOD-sp4): 76.5 % LAV(MOD-sp4): 43.6 ml SV(MOD-sp4): 54.0 ml SV(MOD-sp2): 61.3 ml LA A4 area: 17.4 cm2 LA dimension(2D): 3.7 cm RA A4 area: 12.1 cm2 Time Measurements MV dec time: 0.27 sec Doppler Measurements AND Calculations MV E max aly: 95.6 cm/sec Lat Peak E' Aly: 8.9 cm/sec Med Peak E' Aly: 9.8 cm/sec MV A max aly: 77.5 cm/sec E/E' lat: 10.7 E/E' med: 9.7 MV E/A: 1.2 Ao V2 max: 144.0 cm/sec LV V1 max: 133.8 cm/sec PA V2 max: 139.5 cm/sec Ao max P.3 mmHg LV V1 max P.2 mmHg Interpretation Summary The study was technically difficult. Contrast injection was performed. Left ventricular systolic function is normal. The estimated ejection fraction is 70 %. Trivial mitral valve insufficiency. Trivial tricuspid valve insufficiency. Trivial pulmonic valve insufficiency. Unable to estimate RV systolic pressure/pulmonary artery pressure due to technically difficult study. Diastolic function is indeterminate. Ordering Physician: Clovis Garcia Referring Physician: Terry Mcdonnell Chi Performed By: Krys Rivera, JAX, RVT 05/04/18 173 Date Clovis Garcia MD CC: Clovis Garcia MD; Terry Mcdonnell MD Date Dictated: 05/04/18 1042 Date Transcribed: 05/04/181735 [employer] Storage Architect: Signed BASIC METABOLIC Collected: 04/27/2018 Status: F Source: [place] PROFILE (BMP) 6:29 AM [facility] [place] [facility] TYPE CODE TESTS RESULT OUT OF RANGE REFERENCE UNITS LAB L501.0100 74-106 mg/dL Normal GLU 91 Result Comment: Please note revised GLUCOSE reference range effective 2017. LAB L501.1000 7-18 mg/dL Normal BUN 13 LAB L501.1100 0.55-1.02 mg/dL Normal CREAT,SERUM 0.79 Result Comment: The validity of the calculated GFR AND GFRAA in patients over 70 years has not been determined. Clinical correlation is essential. LAB L501.1110 >60 mL/min Normal EST GFR 79 Result Comment: Non- GFR Calc LAB L501.1115 >60 mL/min Normal EST GFR - AA 95 Result Comment: GFR Calc LAB L501.1300 10-20 RATIO Normal BUN/CRE 16.4 LAB L501.2200 8.5-10.1 mg/dL CA Normal 8.8 LAB L501.5300 136-145 mmol/L NA Normal 143 LAB L501.5600 3.5-5.1 mmol/L K Normal 4.0 LAB L501.5900 98-107 mmol/L CL Normal 107 LAB L501.6100 21.0-32.0 mmol/L Normal CO2 27.0 LAB L501.6200 5-15 Normal GAP 9 Performed By: #### L500.2500 #### [facility] [address] [place], [address] CARDIOLOGY VISIT Observed: 04/21/2018 Status: F Source: [place] REPORT 5:22 PM [facility] [place] [address] [place] [address] OFFICE VISIT Date of Service: 04/21/18 MR#: [id number] Acct: [id number] Name: BEAR FRANCISCO Rep #: [id number] : 1960 Provider: Clovis Garcia MD Age/Sex: 58/F [place] [facility] [place] Signed HPI HPI Details: BEAR FRANCISCO, is a 58 F who presents to the office today for preoperative cardiovascular evaluation for upcoming ENT/maxillary and ethmoid sinus surgery. This is based upon history of an abnormal ECG. The patient states she has been healthy. She has had no obvious cardiovascular history that she is aware of. She does not believe she has had an ECG in the past until her recent preoperative ECG. 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 She remains very active with her family with respect to bicycling, camping, and gardening. She states with her activities she has had no concerning chest discomfort or difficulty breathing. She denies any history of obvious orthopnea, PND, peripheral pitting edema, near syncope or syncope. She has been undergoing evaluation and care for her sinusitis for several months. She has been on antibiotic therapy. She states she is now being scheduled for upcoming maxillary and ethmoid sinus surgery. In preparation for that she had a preoperative ECG. It was interpreted as sinus rhythm with marked sinus arrhythmia with nonspecific ST and T wave abnormality. She was subsequently referred for further preoperative cardiovascular evaluation. She did have a repeat ECG today. She was noted to be in sinus bradycardia with subtle nonspecific ST segment abnormality. Also on examination she was noted to have a cardiac murmur which she is unaware of. Intake Vital Signs04/21/18 Body Mass Index (BMI) 24.9 04/21/18 Height 5 ft 4 in 04/21/18 Weight: 147 lb 04/21/18 Body Mass Index (BMI) 25.2 04/21/18 Blood Pressure 154/72 H Intake Visit Reasons: ABN EKG/Ref. Dr. Yousif Allergies Sulfa (Sulfonamide Antibiotics) Allergy (Verified 04/21/18 14:51) Unknown Medications Multivitamin [Multiple Vitamins] 1 ea PO DAILY 04/07/18 [History Confirmed 04/21/18] doxycycline hyclate 100 mg capsule 100 mg PO DAILY 04/08/18 [History Confirmed 04/21/18] [facility] Medical History Abnormal electrocardiogram [ECG] [EKG] (Acute) Hyperlipemia (Chronic) Chronic sinusitis (Chronic) History of Guillain-Unity syndrome (Chronic) Surgical History History of tubal ligation (Resolved) Nasal septal deviation (Resolved) Family History Father Cancer leukemia Social History Smoking Status: Former smoker alcohol intake: current details: social substance use type: does not use caffeine: Yes what type of physical activity do you participate in: walking seatbelt use: always do you feel safe at home: Yes additional social history: Nico- Retired ROS Const Const: Negative for fatigue, weakness, weight gain, weight loss, frequent falls or excessive sweating Eyes Eyes: Negative for change in vision, blurry vision or transient loss of vision ENT ENT: Negative for dizziness or balance problems Cardio Chest Pain: No Palpitations: No Edema: None Muscle aches with walking: None Resp Respiratory: Positive for Cough (dry); negative for SOB with activity or SOB at rest GI GI: Negative vomiting or vomiting blood/hematemesis : Negative for hematuria Musc Musc: Negative for balance problems, muscle aches/ myalgia, muscle weakness or joint pain Skin Skin: Negative non-healing lesions or rash Neuro Neuro: Negative for weakness, blurry vision, dizziness, lightheadedness, frequent falls or orthostatic symptoms Tonny Hematologic/Lymphatic: Negative for easy bleeding Endo Endo: Negative for fatigue or excessive sweating Psych Psych: Negative for anxiety or depression Allergy Allergy/Immunology: Negative for hives, Negative for rash Cardiology Exam Const Appearance: cooperative, healthy appearing, comfortable, well developed and well groomed Nutritional Appearance: thin Orientation: alert, awake and oriented x3 Head Head: normal to inspection, normocephalic and atraumatic Ears: hearing grossly normal bilaterally Nose: external nose normal Face and Sinus: face symmetric Mouth: oral mucosae normal Teeth and gingiva: fair dentition Eyes Eyelids: eyelids normal Conjunctivae: conjunctivae normal Pupils: PERRL EOM: EOM intact bilaterally Neck Neck: normal visual inspection and full ROM Carotids: normal carotid upstroke Chest Chest inspection: normal inspection of the chest, symmetric chest movement and normal respiratory effort Auscultation: Bilateral: Clear to Auscultation Cardio Palpation: normal PMI Rate: regular rate Rhythm: regular rhythm Heart sounds: S1 normal and S2 normal Murmur: Grade 2/6, soft, mid systolic and LLSB GI GI: normal to inspection, bowel sounds present and soft Neuro General: alert, awake, oriented x3, moves all extremities, no focal sensory deficit and no focal motor deficits Skin Skin: no rashes or lesions noted Extremities Pulses: Normal: Right Femoral Pulse, Left Femoral Pulse, Right Dorsalis Pedis Pulse, Left Dorsalis Pedis Pulse, Right Posterior Tibial Pulse, Left Posterior Tibial Pulse, Right Radial Pulse, Left Radial Pulse Lower Extremity Edema: None: Bilateral Psych Psychological: normal affect Assessment AND Plan 1. Abnormal electrocardiogram R94.31 Plan She does have an abnormal echocardiogram. The etiology is unclear. It is noted on preoperative laboratory studies she was hypokalemic. She is unaware of any etiology for that. It is unclear whether this may be contributing to her ST and T wave abnormality. At the present time she will have a follow-up BMP P to reassess her potassium status. However based upon her abnormal ECG, her findings of cardiac murmur, and the need for upcoming ENT surgery she will be asked to have further cardiovascular evaluation. This will include a transthoracic echocardiogram to assess her valvular anatomy and physiology and her ventricular size, wall motion, and systolic function. He will also include an exercise tolerance test/imaging study to evaluate for any obvious evidence of coronary artery disease that may contribute to her preoperative ECG findings. Orders Orders: 2. Heart murmur R01.1 Plan Again she has a cardiac murmur which she has been unaware of. She will be further assessed anatomically with a transthoracic echocardiogram. Orders Orders: 3. Hyperlipidemia, unspecified hyperlipidemia type E78.5 Plan Her lipid labs were reviewed. Her total cholesterol is elevated at 224. Hopefully with dietary adjustment and continued exercise her lipid profile can come under better control. If not she may need to be considered for lipid-lowering therapy in the future. 4. Hypokalemia E87.6 Plan Again her preoperative labs suggested hypokalemia for unclear etiology at this time. She will be asked to have a follow-up BMP to reassess her potassium status. If it remains low then she will need to be considered for further evaluation and care by the appropriate physician team. Orders Orders: Plan Detail Other Orders Orders: Additional Comments The above was discussed with her. She was agreeable to this approach. Thank you for allowing me to participate in the care of your patient. Please don't hesitate to call if any issues arise. This note was generated using a voice recognition system and there may be incorrect words, spelling or punctuation that were not noted when reviewing the office note prior to saving. Follow Up 04/21/18 (PRN) Coding Level of Care Code Off vis,new,level 4 Diagnoses Abnormal electrocardiogram R94.31 Heart murmur R01.1 Hyperlipidemia, unspecified hyperlipidemia type E78.5 Hyperlipidemia type: unspecified Hypokalemia E87.6 Coding Level of Care Code Off vis,new,level 4 Diagnoses Abnormal electrocardiogram R94.31 Heart murmur R01.1 Hyperlipidemia, unspecified hyperlipidemia type E78.5 Hyperlipidemia type: unspecified Hypokalemia E87.6 04/21/18 1722 <Electronically signed by Clovis Garcia MD> Date Clovis Garcia MD Cosigner Signature: Date (if applicable) CC: Stanford Yousif MD 12 LEAD EKG PERFORMED Observed: 04/21/2018 Status: F Source: [place] BY [place] 2:46 PM [facility] [place] [facility] [address] [place] [address] 12 Lead EKG performed by SANDI 04/21/18 1446 MR#: [id number] Acct: [id number] Name: BEAR FRANCISCO Rep #: [id number] : 1960 58 From: Clovis Garcia MD Attending Dr: Clovis Garcia MD Status: DEP AMB Ordering Dr: Clovis Garcia MD Date: 04/21/18 [facility] [facility] [place] [place] C Admitted: BMS/12 [place] [facility] [place] Interpretation Sinus Bradycardia Subtle nonspecific ST segment abnormalityElectronically signed on 04/21/2018 at 18:05 by Clovis Garcia [employer] Software Version 8610 04/21/18 1808 Date Clovis Garcia MD CC: Date Dictated: 04/21/18 1446 Date Transcribed: 04/21/181445 [employer] Storage Architect: PM Signed 12 LEAD ELECTROCARDIOGRAM Observed: 04/09/2018 Status: F Source: [place] 10:51 AM [facility] [place] [facility] Cardiovascular Services [address] [place] [address] 12 Lead EKG 04/08/18 1149 MR#: [id number] Acct: [id number] Name: BEAR FRANCISCO Rep #: [id number] : 1960 58 From: Ronaldo Luciano MD Attending Dr: Stanford Yousif MD Status: PRE SDC Ordering Dr: Stanford Yousif MD Date: 04/08/18 [place] [facility] [place] Sex: F C Admitted: Test Reason : PRE OP Blood Pressure : / mmHG Vent. Rate : 072 BPM Atrial Rate : 072 BPM P-R Int : 162 ms QRS Dur : 084 ms QT Int : 360 ms P-R-T Axes : 067 055 013 degrees QTc Int : 394 ms Sinus rhythm with marked sinus arrhythmia Nonspecific ST and T wave abnormality Abnormal ECG Confirmed by RONALDO LUCIANO MD ([id number]), state editor CATALINA KIM ([id number]) on 04/09/2018 10:51:31 AM Referred By: Stanford Yousif Confirmed By:RONALDO LUCIANO MD 04/09/18 1051 Date Ronaldo Luciano MD CC: Stanford Yousif MD; Terry Mcdonnell MD Signed PAP IG HPV APTIMA Collected: 04/08/2018 Status: F Source: [place] 16/18,45 3:00 PM [facility] [place] [facility] Order Comment: CYTOLOGY INFORMATION: - CLINICAL INFORMATION: ANNUAL - DATE LMP/MENOPAUSE: - COLLECTION VIAL: Thin Prep Vial - HAY BALER SOURCE: CERVICAL - COLLECTION TECHNIQUE: BRUSH/SPATULA Specimen Comment: [id number] Specimen Comment: Source.............Cervix Specimen Comment: No. of containers..01 ThinPrep Vial TYPE CODE TESTS RESULT OUT OF RANGE REFERENCE UNITS LAB L7400.0800 . Normal DIAGN Comment Result Comment: NEGATIVE FOR INTRAEPITHELIAL LESION AND MALIGNANCY. CELLULAR CHANGES ASSOCIATED WITH ATROPHY ARE PRESENT. LAB L7400.0900 . Normal ADEQ Comment Result Comment: Satisfactory for evaluation. Endocervical and/or squamous metaplastic cells (endocervical component) are present. LAB L7400.1400 . Normal PERFORM Comment Result Comment: Ninoska Polanco, Inserter (ASCP) LAB L7400.2575 . Normal TEST METHOD Comment Result Comment: This liquid based ThinPrep(R) pap test was screened with the use of an image guided system. LAB L7400.2600 . Normal . COMM LAB L7400.2700 . Normal PAPSMR Comment Result Comment: The Pap smear is a screening test designed to aid in the detection of premalignant and malignant conditions of the uterine cervix. It is not a diagnostic procedure and should not be used as the sole means of detecting cervical cancer. Both false-positive and false-negative reports do occur. LAB L7400.2760 Negative Normal HPV APTIMA, Negative HR Result Comment: This test detects fourteen high-risk HPV types (16/18/31/33/35/39/45/ 51/52/56/58/59/66/68) without differentiation. Performed at: [address] [id number] Motor Vehicle Examiner: Christin Ward MD, Phone: [phone] Performed at: =G - [facility] [address] [place] [id number] Motor Vehicle Examiner: Christin Ward MD, Phone: [phone] Performed By: #### L7400.0280 #### [facility] (refer to report for specific site) refer to report for address and phone number LAY OUT TECHNICIAN OFFICE VISIT Observed: 04/08/2018 Status: F Source: [place] REPORT 1:39 PM [facility] [address] [place] [address] OFFICE VISIT Date of Service: 04/08/18 MR#: [id number] Acct: [id number] Name: BEAR FRANCISCO Rep #: [id number] : 1960 Provider: TRAE Torres Age/Sex: 58/F [place] [facility] [place] Status: Signed Intake Vital Signs04/08/18 Height 5 ft 4 in 04/08/18 Weight: 145 lb 04/08/18 Body Mass Index (BMI) 24.9 04/08/18 Blood Pressure 140/72 H Intake Visit Reasons: new annual Chief Complaint: NEW annual Processing Mgr Required: No Is patient in pain?: No Allergies Sulfa (Sulfonamide Antibiotics) Allergy (Verified 04/08/18 12:48) Unknown Medications Multivitamin [Multiple Vitamins] 1 ea PO DAILY 04/07/18 [History Confirmed 04/08/18] doxycycline hyclate 100 mg capsule 100 mg PO DAILY 04/08/18 [History Confirmed 04/08/18] Is last menstrual period known: No Post menopausal: Yes Patient : No : No [facility] Medical History History of Guillain-Unity syndrome (Acute) Surgical History Nasal septal deviation (Acute) Family History Father Cancer leukemia Social History Smoking Status: Former smoker alcohol intake: current details: social substance use type: does not use caffeine: Yes what type of physical activity do you participate in: walking seatbelt use: always do you feel safe at home: Yes additional social history: Nico- Retired Pregancy History 3 Elective abortions Hx Para 3 Spontaneous abortions Past Pregnancies Del. DateName GA/Weeks Outcome Route [facility] WeighInfant GeLabor LgtAnesthesiDel LocatProvider FOB t n h a n HPI new annual: Details: BEAR FRANCISCO is a 58 year old who presents for new patient annual exam. Denies concerns. No exams many years No menses X 7 years. 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 Reproductive History Questions: Metorrhagia: No, Sexually active: Yes, Dyspareunia: No, PCB: No ROS Const Constitutional: Denies fatigue, weight gain or weight loss Cardio Card: Denies chest pain Resp Resp: Denies cough or shortness of breath with activity GI GI: Denies abdominal pain, constipation, change in stools, vomiting or bloating : Reports as per HPI; denies urinary frequency, pelvic pain, urinary urgency, vaginal discharge, vaginal itching, urinary incontinence or difficulty urinating Exam Const General: cooperative, healthy appearing, no acute distress, well developed Orientation: alert, oriented to person, oriented to place HENMT Head: normal to inspection Neck Neck: normal visual inspection Thyroid: thyroid normal Lymphatic: no lymphadenopathy noted Chest Breast inspection: normal inspection of the breasts, normal inspection of the axillae Breast palpation: normal palpation of the breasts, normal palpation of the axillae, no axillary lymphadenopathy Resp Effort AND Inspection: normal respiratory effort GI Palpation: soft, nontender, no masses Rectal Exam: deferred External Female Exam: normal external appearance, normal appearance of the urethra Urethra: normal appearance of the urethra, normal palpation Speculum Exam - Vagina: normal vaginal discharge, atrophic vaginal mucosa Speculum Exam - Cervix: normal appearance of the cervix (pap collected) Bimanual Exam- Vagina AND Uterus: normal bimanual exam, uterine size normal, uterine shape normal, uterus non-tender Bimanual Exam- Adnexa, other: normal adnexae, no adnexal masses, adnexae non-tender, pelvic support normal Pelvic Support: normal Neuro General: alert, oriented x3 Psych Affect: normal affect Assessment AND Plan Problems 1. Encounter for gynecological examination with abnormal finding Z01.411 2. Atrophic vaginitis N95.2 Plan Completed breast and pelvic exam Reviewed diet and exercise Pap thin prep pap with HPV Mammogram ordered Discussed use of OTC lubricants, coconut oil. She will call if problematic Colonoscopy encouraged and written information for scheduling given RTO 1 year, prn with problems Maria T Torres PHYSICAL THERAPY PROFESSOR Orders Orders: Coding Level of Care Code Off vis,new,prev 40-64yrs Diagnoses Encounter for gynecological examination with abnormal finding Z01.411 Gynecological examination findings: abnormal findings PRESENT Atrophic vaginitis N95.2 04/08/18 1339 <Electronically signed by Maria T BLACKBURNC> Date Maria T Torres CLINICAL WRITER-C Cosigner Signature: Date (if applicable) CC: CBC-COMPLETE BLOOD CNT Collected: 04/08/2018 Status: F Source: [place] NO DIFF 11:37 AM [facility] [place] [facility] TYPE CODE TESTS RESULT OUT OF RANGE REFERENCE UNITS LAB L100.1000 4.4-11.0 K/mm3 Normal WBC 8.1 LAB L100.1200 4.2-5.4 M/mm3 Normal RBC 4.50 LAB L100.1300 12.0-15.0 g/dl Normal HGB 13.2 LAB L100.1400 37-47 % Normal HCT 41.9 LAB L100.1500 81-99 fL Normal MCV 93.1 LAB L100.1600 27.0-32.0 pg Normal MCH 29.3 LAB L100.1700 32-36 g/gl Low MCHC 31.5 LAB L100.1810 11.6-14.6 % Normal RDW CV 13.2 LAB L100.1820 35.1-43.9 fl High RDW SD 45.0 LAB L100.1900 150-450 K/mm3 Normal PLT 379 LAB L100.2000 6.2-12.0 fl Normal MPV 10.6 Performed By: #### L100.0500 #### [facility] [address], [address] BASIC METABOLIC Collected: 04/08/2018 Status: F Source: [place] PROFILE (BMP) 11:37 AM [facility] [place] [facility] TYPE CODE TESTS RESULT OUT OF RANGE REFERENCE UNITS LAB L501.0100 74-106 mg/dL Normal GLU 101 Result Comment: Fasting Glucose result from 100 to 125 mg/dL suggests IMPAIRED HOMEOSTASIS per A.D.A. criteria. Please note revised GLUCOSE reference range effective 2017. LAB L501.1000 7-18 mg/dL Normal BUN 12 LAB L501.1100 0.55-1.02 mg/dL Normal CREAT,SERUM 0.70 Result Comment: The validity of the calculated GFR AND GFRAA in patients over 70 years has not been determined. Clinical correlation is essential. LAB L501.1110 >60 mL/min Normal EST GFR 91 Result Comment: Non- GFR Calc LAB L501.1115 >60 mL/min Normal EST GFR - AA 110 Result Comment: GFR Calc LAB L501.1300 10-20 RATIO Normal BUN/CRE 17.2 LAB L501.2200 8.5-10.1 mg/dL CA Normal 9.2 LAB L501.5300 136-145 mmol/L NA Normal 140 LAB L501.5600 3.5-5.1 mmol/L Low K 3.3 LAB L501.5900 98-107 mmol/L CL Normal 105 LAB L501.6100 21.0-32.0 mmol/L Normal CO2 28.0 LAB L501.6200 5-15 Normal GAP 7 Performed By: #### L500.2500 #### [facility] [address] [place], [place], [address] SINUS/FACIAL BONE Observed: 03/30/2018 Status: F Source: [place] 1:17 PM [facility] [place] Imaging Services [address] [place] [address] Sinus/Facial Bone MR#: [id number] Acct: [id number] Name: BEAR FRANCISCO Rep #: [id number] : 1960 F 58 From: Gallito Holley MD PCP: Sathya RUTHERFORD,Terry Chi Status: REG CLI Study: Sinus/Facial Bone Date of Exam: 03/30/18 Exam# [id number] Ordering Dr: Stanford Yousif MD STUDY: CT MAXILLOFACIAL SINUSES REASON FOR EXAM: Female, 58 years old. Chronic sinusitis, rhinoplasty as teenager, right-sided headache and right-sided sinus drainage RADIATION DOSAGE (If Supplied By Facility): CTDIvol = ( 33.06 ) mGy, DLP = ( 784.26 ) mGycm TECHNIQUE: The patient was scanned in a multi detector CT scanner. High resolution axial imaging was performed without the administration of intravenous contrast material. Sagittal and coronal images were reconstructed. Individualized dose optimization techniques were used for this CT. COMPARISON: None. FINDINGS: FRONTAL SINUSES: There is near complete opacification of the right frontal sinus. The left frontal sinus is normal. ETHMOIDAL SINUSES: There is opacification of multiple anterior right ethmoid air cells. The left ethmoid air cells are preserved. MAXILLARY SINUSES: There is a polypoid defect of the left maxillary sinus measuring 1.5 cm consistent with polyp versus mucoid retention cyst. There is complete opacification of the right maxillary sinus. There is an expansile mass of the right maxillary sinus causing medial bowing of the medial maxillary sinus wall extending into the right nasal cavity. There are several small metallic foreign bodies in the medial right maxillary sinus wall. SPHENOIDAL SINUSES: Normal aeration, without mucosal inflammatory disease. There is absence of the middle nasal turbinates bilaterally. The inferior nasal turbinates are atrophic bilaterally. The anterior nasal septum is displaced slightly to the left of midline. There is compromise of the anterior right nasal cavity. The visualized bilateral orbital contents are normal. CT/Sinus/Facial Bone IMPRESSION: There is complete opacification of the right maxillary sinus, which contains an expansile mass causing medial bowing of the medial maxillary sinus wall extending into the right nasal cavity. This would more likely represent benign process such as mucocele. There are several small metallic foreign bodies in the medial right maxillary sinus wall. There is a 1.5 cm polypoid filling defect of the left maxillary sinus consistent with polyp versus mucoid retention cyst. There is near complete opacification of the right frontal sinus and opacification of multiple anterior right ethmoid air cells. There is absence of the middle nasal turbinates bilaterally, and atrophic inferior nasal turbinates bilaterally. The anterior nasal septum is slightly displaced to the left of midline. There is airway compromise of the anterior right nasal cavity. MRI is recommended for further evaluation. Electronically Signed: Gallito Holley MD at 16:10 EST , Service support , CC: Stanford Yousif MD; Terry Mcdonnell MD [employer] Storage Architect: Signed Observed: 03/03/2018 Status: F Source: [place] CULTURE, NOSE 2:10 PM [facility] [place] [facility] Gram Stain Gram Stain 3+ White Blood Cells 2+ Gram positive cocci Rare Gram negative rods Nasoph. Cult Penicillin is the drug of choice for Beta Streptococcal infections. For Penicillin allergic patients, Erythromycin may be used. ORGANISM 1: Streptococcus group C Amount Growth 3+ Performed By: #### M100.0900 #### [facility] [address] [place], [place], [address] THYROID STIM HORMONE Collected: 02/08/2018 Status: F Source: [place] (TSH) 5:19 PM [facility] [place] [facility] TYPE CODE TESTS RESULT OUT OF RANGE REFERENCE UNITS LAB L501.9520 0.358-3.74 uIU/mL Normal TSH 2.57 Performed By: #### L501.9520 #### [facility] [address] [facility] [place], [address] HEPATITIS C ANTIBODIES Collected: 02/08/2018 Status: F Source: [place] 5:19 PM [facility] [place] [facility] TYPE CODE TESTS RESULT OUT OF RANGE REFERENCE UNITS LAB L3100.0650 0.0-0.9 s/co ratio Normal HEP C AB <0.1 Result Comment: Negative: < 0.8 Indeterminate: 0.8 - 0.9 Positive: > 0.9 The CDC recommends that a positive HCV antibody result be followed up with a HCV Nucleic Acid Amplification test (397889). Performed at: [address] [id number] Motor Vehicle Examiner: Eduardo Stacy PhD, Phone: [phone] Performed By: #### L3100.0625 #### [facility] (refer to report for specific site) refer to report for address and phone number URINALYSIS, EMPLOYEE Collected: 01/29/2018 Status: F Source: [place] 6:40 AM [facility] [place] TYPE CODE TESTS RESULT OUT OF RANGE REFERENCE UNITS LAB L400.3000 Yellow COLOR Normal Yellow LAB L400.3050 Clear Normal CLARITY Clear LAB L400.3200 Normal mg/dl Normal GLUCOSE, UR Normal LAB L400.3300 Negative mg/dL Normal BILIRUBIN URINE Negative LAB L400.3400 Negative mg/dl Normal KETONE UR Negative LAB L400.3465 1.002-1.030 Normal SP.GR. DIPSTX 1.025 LAB L400.3550 5.0 - 8.0 pH UR Normal 5.0 LAB L400.3600 Negative mg/dl PROT Normal DIPSTX Negative LAB L400.3700 Normal mg/dl Normal UROBILI Normal LAB L400.3750 Negative Normal NITRITE UR Negative LAB L400.3780 Negative /ul High 10 OCCULT BLOOD-UR LAB L400.3800 Negative /ul High LEUK ESTERASE 100 Performed By: #### L400.0100 #### [facility] [address] [place], [place], [address] CBC, EMPLOYEE Collected: 01/29/2018 Status: F Source: [place] 6:40 AM [facility] [place] [facility] TYPE CODE TESTS RESULT OUT OF RANGE REFERENCE UNITS LAB L100.1000 4.4-11.0 K/mm3 Normal WBC 4.7 LAB L100.1200 4.2-5.4 M/mm3 Low RBC 4.11 LAB L100.1300 12.0-15.0 g/dl Normal HGB 12.0 LAB L100.1400 37-47 % Normal HCT 37.5 LAB L100.1500 81-99 fL Normal MCV 91.2 LAB L100.1600 27.0-32.0 pg Normal MCH 29.2 LAB L100.1700 32-36 g/gl Normal MCHC 32.0 LAB L100.1810 11.6-14.6 % Normal RDW CV 13.5 LAB L100.1820 35.1-43.9 fl High RDW SD 45.1 LAB L100.1900 150-450 K/mm3 Normal PLT 286 LAB L100.2000 6.2-12.0 fl Normal MPV 10.5 LAB L100.2110 47-70 % Low NEUT% 42.6 LAB L100.2210 19-41 % High LY% 45.7 LAB L100.2310 0-10 % Normal MONO% 8.5 LAB L100.2410 0-5 % Normal EO% 2.1 LAB L100.2510 0-1 % High BASO% 1.1 LAB L100.2620 2.0-7.7 X10 3/uL Normal Absolute Neut 2.0 LAB L100.2720 0.83-4.51 X10 3/ul Normal Absolute Lymph 2.15 Performed By: #### L100.0200 #### [facility] [address] [place], [address] EMPLOYEE PROFILE Collected: 01/29/2018 Status: F Source: [place] 6:40 AM [facility] [place] [facility] TYPE CODE TESTS RESULT OUT OF RANGE REFERENCE UNITS LAB L501.0100 74-106 mg/dL High GLU 107 Result Comment: Fasting Glucose result from 100 to 125 mg/dL suggests IMPAIRED HOMEOSTASIS per A.D.A. criteria. Please note revised GLUCOSE reference range effective 2017. LAB L501.1000 7-18 mg/dL Normal BUN 11 LAB L501.1100 0.55-1.02 mg/dL Normal CREAT,SERUM 0.79 Result Comment: The validity of the calculated GFR AND GFRAA in patients over 70 years has not been determined. Clinical correlation is essential. LAB L501.1110 >60 mL/min Normal EST GFR 78 Result Comment: Non- GFR Calc LAB L501.1115 >60 mL/min Normal EST GFR - AA 95 Result Comment: GFR Calc LAB L501.1300 10-20 RATIO Normal BUN/CRE 13.9 LAB L501.1400 2.6-6.0 mg/dL Normal URIC 4.9 Result Comment: The drugs N-Acetylcysteine and Metamizole may falsely depress this assay. LAB L501.1500 6.4-8.2 g/dL Normal T PROT 7.6 LAB L501.1800 3.2-5.0 g/dL Normal ALB 3.6 LAB L501.1950 2.2-4.2 g/dL Normal GLOB 4.0 LAB L501.2000 0.9-2.4 RATIO Normal A/G 0.9 LAB L501.2200 8.5-10.1 mg/dL Normal CA 8.8 LAB L501.2300 2.5-4.9 mg/dL Normal PHOS 3.4 LAB L501.4100 15-37 U/L Low AST 14 LAB L501.4305 45-117 U/L Normal ALK P 72 LAB L501.4405 13-56 U/L Normal ALT 23 LAB L501.4600 0.20-1.00 mg/dL Normal T BILI 0.60 LAB L501.4700 0.00-0.30 mg/dL Normal D BILI 0.13 LAB L501.4900 200 mg/dL High CHOL 224 Result Comment: <200 mg/dL Desirable 200-240 mg/dL Borderline >240 mg/dL High Risk LAB L501.5000 mg/dL Normal TRIG 143 Result Comment: The drugs N-Acetylcysteine and Metamizole may falsely depress this assay. Serum Triglycerides Reference Interval Normal <150 mg/dL Borderline high 150 - 199 mg/dL High 200 - 499 mg/dL Very High > or = 500 mg/dL LAB L501.5300 136-145 mmol/L Normal NA 144 LAB L501.5600 3.5-5.1 mmol/L Normal K 3.9 LAB L501.5900 98-107 mmol/L High CL 109 LAB L501.6100 21.0-32.0 mmol/L Normal CO2 28.0 LAB L501.6200 5-15 Normal 7 GAP LAB L501.6400 mg/dL Normal HDL 66 Result Comment: The drugs N-Acetylcysteine and Metamizole may falsely depress this assay. Reference Range HDL <40 mg/dL Low HDL Cholesterol HDL >or= 60 mg/dL High HDL Cholesterol LAB L501.6475 Normal CHOL:HDL 3.40 LAB L501.6500 0-130 mg/dL Normal LDL 129 LAB L501.6600 5-40 mg/dL Normal VLDL 29 LAB L504.2610 84-246 U/L Normal LDH 160 Performed By: #### L500.2900 #### [facility] [address] [place], [address] NICOTINE URINE DRUG Collected: 01/29/2018 Status: F Source: [place] SCREEN 6:40 AM [facility] [place] [facility] TYPE CODE TESTS RESULT OUT OF RANGE REFERENCE UNITS LAB L505.6250 TO BE Normal CONFIRMED Result Comment: CONFIRMATORY TESTING FOR ALL POSITIVE URINE DRUG SCREEN RESULTS WILL ONLY BE SENT OUT UPON PHYSICIAN ORDER. The results of Urine Drug Screen methods provide only preliminary analytical test results. A more specific alternate chemical method must be used in order to obtain a confirmed analytical result. Gas chromatography/mass spectrometery (GC/MS) is the preferred confirmatory method. Clinical consideration and professional judgement should be applied to any drug of abuse test result, particularly when preliminary positive results are used. LAB L505.6270 <200 ng/mL Normal COT DRG Negative SCREEN Result Comment: Cotinine is the first-stage metabolite of Nicotine. Performed By: #### L505.6240 #### [facility] [address] [place], [address] ALLERGIES ALLERGIES DATE TYPE / CODE NAME / CODE REACTION SEVERITY SOURCE 06/09/2018 Drug Sulfa Unknown Unknown [facility] Allergy/4160 (Sulfonamide Hospital 83668(SNOMED Antibiotics)/ Repository CT) [id number](RX NORM) ENCOUNTERS ENCOUNTERS ADMIT/DISCHARGE ACCOUNT ADMITTING ENCOUNTER LOCATION SOURCE NUMBER CLASS 06/14/2018/ [id number] Ambulatory [place] [facility] 8 [facility] ing:SDCRoom: Repository AC19 06/09/2018/ [id number] Ambulatory BMSBuilding:B [place] 1 [facility] Repository 06/02/2018 [id number] Ambulatory BMSBuilding:B [place] 6 [facility] Repository 06/01/2018 [id number] Ambulatory BMSBuilding:B [place] 0 [facility] Repository 06/01/2018/ [id number] Ambulatory [place] 1 [facility] ing:[facility] Repository 05/27/2018/ [id number] Ambulatory BMSBuilding:B [place] 9 [facility] Repository 05/27/2018 [id number] Ambulatory [place] 1 [facility] hospital Hospital ing:RAD Repository 05/12/2018 [id number] Ambulatory [place] 1 Critical access hospital Hospital ing:SDC Repository 05/04/2018 [id number] Ambulatory BMSBuilding:W [place] 8 [facility] Repository 05/04/2018 [id number] Ambulatory [place] 3 Critical access hospital Hospital ing:[facility] Repository 04/27/2018 [id number] Ambulatory [place] 1 [facility] hospital Hospital ing:LAB Repository 04/21/2018/ [id number] Ambulatory BMSBuilding:B [place] 8 7 [facility] Repository 04/19/2018 [id number] Ambulatory BMSBuilding:B [place] 2 [facility] Repository 04/08/2018 [id number] Ambulatory [place] 0 Critical access hospital Hospital ing:[facility]BI Repository 04/08/2018 [id number] Ambulatory BMSBuilding:W [place] 9 [facility] Repository 04/08/2018/ [id number] Ambulatory BMSBuilding:B [place] 8 2 [facility] Hospital Repository 03/30/2018 [id number] Ambulatory [place] 5 Critical access hospital Hospital ing:CT Repository 03/03/2018 [id number] Ambulatory [place] 1 Critical access hospital Hospital ing:[facility] Repository 02/08/2018 [id number] Ambulatory [place] 8 [facility] access hospital Hospital ing:LAB Repository 01/29/2018 [id number] Ambulatory [place] 4 Critical access hospital Hospital ing:EMPH Repository PAYERS PAYERS ENCOUNTER GUARANTOR PAYER SUBSCRIBER SOURCE 06/14/2018 BEAR Black Primary Insurance:[facility] BEAR Black [place] [id number] [facility]: [facility] [id number] [address]Lpp: Number: Repository [id number] (HP) Date:6782-37-77AM [facility] [address], [place] [address]SL: CHECK WEBSITE 06/14/2018 Secondary NOT GIVENUNK [place] Insurance:SELF PAY [facility] Number: Effective Repository Date:2018-06-03 06/09/2018 BEAR Black Primary Insurance:[facility] BEAR Black [place] [id number] [facility] W[facility]LFORDDOB: [facility] [id number] [facility] [address]Wzr: Number: Repository [id number] (HP) Date:3758-06-31[address] [address], [place] [address]ZE: CHECK WEBSITE 06/09/2018 Secondary NOT GIVENUNK [place] Insurance:SELF PAY [facility] Number: Effective Repository Date:2018-06-09 06/02/2018 BEAR Black Primary Insurance:[facility] [facility] [place] [id number] [facility]: [facility] [id number] Health Clinic [address]Muo: Number: Repository [id number] (HP) Date:8716-43-09[address] [address]QBXYIQJMLStephen [place] [address]WP: CHECK WEBSITE 06/02/2018 Secondary NOT GIVENUNK [place] Insurance:SELF PAY [facility] Number: Effective Repository Date:2018-06-02 06/01/2018 BEAR Black Primary Insurance:[facility] BEAR Black [place] [id number] [facility]: [facility] [id number] Health Clinic [address]Dhp: Number: Repository [id number] (HP) Date:5418-99-03[address] [address]UXDTSVCDC, [place] [address]DJ: CHECK WEBSITE 06/01/2018 Secondary NOT GIVENUNK [place] Insurance:SELF PAY [facility] Number: Effective Repository Date:2018-06-01 06/01/2018 BEAR Black Primary Insurance:[facility] BEAR Black [place] [id number] [facility]: [facility] [id number] Health Clinic [address]Svt: Number: Repository [id number] (HP) Date:4916-93-49[address] [address]BBIMPFCZK, [place] [address]YS: CHECK WEBSITE 06/01/2018 Secondary NOT GIVENUNK [place] Insurance:SELF PAY [facility] Number: Effective Repository Date:2018-05-06 05/27/2018 BEAR Black Primary Insurance:[facility] BEAR Black [place] [id number] [facility]: [facility] [id number] Health Clinic [address]Cpc: Number: Repository [id number] (HP) Date:1572-77-45[address] [address]GKBJFZCOF, [place] [address]WS: CHECK WEBSITE 05/27/2018 Secondary NOT GIVENUNK [place] Insurance:SELF PAY [facility] Number: Effective Repository Date:2018-05-27 05/27/2018 BEAR Black Primary Insurance:[facility] BEAR Black [place] [id number] [facility]DOB: [facility] [id number] Health Clinic [address]Kiy: Number: Repository [id number] (HP) Date:9242-75-79OY [address] [address]UQYRXCWLU, [place] [address]SH: CHECK WEBSITE 05/27/2018 Secondary NOT GIVENUNK [place] Insurance:SELF PAY [facility] Number: Effective Repository Date:2018-05-27 05/12/2018 BEAR Black Primary Insurance:[facility] BEAR Black [place] [id number] [facility]: [facility] [id number] Health Clinic [address]Cwg: Number: Repository [id number] (HP) Date:0152-13-21RZ [address] [address]WGRVXTNXB, [place] [address]CS: CHECK WEBSITE 05/12/2018 Secondary NOT GIVENUNK [place] Insurance:SELF PAY [facility] Number: Effective Repository Date:2018-04-01 05/04/2018 BEAR Black Primary Insurance:[facility] BEAR K Mc[place] [id number] [facility]: [facility] [id number] Health Clinic [address]Bfl: Number: Repository [id number] (HP) Date:5347-60-98[address] [address]VOWCDGZNI, [place] [address]DI: CHECK WEBSITE 05/04/2018 Secondary NOT GIVENUNK [place] Insurance:SELF PAY [facility] Number: Effective Repository Date:2018-05-04 05/04/2018 BEAR K Primary Insurance:[facility] BEAR Black [place] [id number] [facility]: [facility] [id number] Ville [id number]: Number: Repository [id number] (HP) Date:5331-94-16SV [address] [address]KCEMIPAEA, [place] [address]YD: CHECK WEBSITE 05/04/2018 Secondary NOT GIVENUNK [place] Insurance:SELF PAY [facility] Number: Effective Repository Date:2018-04-21 04/27/2018 BEAR K Primary Insurance:[facility] BEAR Black [place] [id number] [facility]: [facility] [id number] Health Clinic [address]Rqv: Number: Repository [id number] (HP) Date:1176-87-42UY [address] [address]HYEIGGPPW, [place] [address]WT: CHECK WEBSITE 04/27/2018 Secondary NOT GIVENUNK [place] Insurance:SELF PAY [facility] Number: Effective Repository Date:2018-04-27 04/21/2018 BEAR K Primary Insurance:[facility] BEAR Wayne [place] [id number] [facility]: [facility] [id number] Ville [id number]: Number: Repository [id number] (HP) Date:1795-00-74PI [address] [address]ZDGAPOHBA, [place] [address]SW: CHECK WEBSITE 04/21/2018 Secondary NOT GIVENUNK [place] Insurance:SELF PAY [facility] Number: Effective Repository Date:2018-04-21 04/19/2018 BEAR Black Primary Insurance:[facility] BEAR Black [place] [id number] [facility]DOB: [facility] [id number] Health Clinic [address]Jgn: Number: Repository [id number] (HP) Date:5875-59-14LT [address] [address]QWKSTVVTT, [place] [address]GK: CHECK WEBSITE 04/19/2018 Secondary NOT GIVENUNK [place] Insurance:SELF PAY [facility] Number: Effective Repository Date:2018-04-19 04/08/2018 BEAR Black Primary Insurance:[facility] BEAR Wayne [place] [id number] [facility]DOB: [facility] [id number] Health Clinic [address]Qrg: Number: Repository [id number] (HP) Date:7401-96-41QK [address] [address]ZNMIGEDRA, [place] [address]UD: CHECK WEBSITE 04/08/2018 Secondary NOT GIVENUNK [place] Insurance:SELF PAY [facility] Number: Effective Repository Date:2018-04-08 04/08/2018 BEAR Black Primary Insurance:[facility] BEAR [place] [id number] [facility]DOB: [facility] [id number] Health Clinic [address]Gqo: Number: Repository [id number] (HP) Date:5984-17-70SH [address] [address]GVTBHEVZH, [place] [address]SW: CHECK WEBSITE 04/08/2018 Secondary NOT GIVENUNK [place] Insurance:SELF PAY [facility] Number: Effective Repository Date:2018-04-08 04/08/2018 BEAR Black Primary Insurance:[facility] BEAR [place] [id number] [facility]: [facility] [id number] Health Clinic [address]Chh: Number: Repository [id number] (HP) Date:8851-66-57RK [address] [address]NKRJCREXP, [place] [address]ZT: CHECK WEBSITE 04/08/2018 Secondary NOT GIVENUNK [place] Insurance:SELF PAY [facility] Number: Effective Repository Date:2018-04-08 03/30/2018 BEAR Black Primary Insurance:[facility] BEAR Black [place] [id number] [facility]: [facility] [id number] Health Clinic [address]Kie: Number: Repository [id number] (HP) Date:5675-68-40MA [address] [address]JDZTVFCTH, [place] [address]UZ: CHECK WEBSITE 03/30/2018 Secondary NOT GIVENUNK [place] Insurance:SELF PAY [facility] Number: Effective Repository Date:2018-03-19 03/03/2018 BEAR Black Primary Insurance:[facility] BEAR Black [place] [id number] [facility]: [facility] [id number] Health Clinic [address]Bol: Number: Repository [id number] (HP) Date:5140-15-70OU [address] [address]QDQBAZUSG, [place] [address]EW: CHECK WEBSITE 03/03/2018 Secondary NOT GIVENUNK [place] Insurance:SELF PAY [facility] Number: Effective Repository Date:2018-03-03 02/08/2018 BEAR Black Primary Insurance:[facility] BEAR Black [place] [id number] [facility]: [facility] [id number] Health Clinic [address]Dzb: Number: Repository [id number] (HP) Date:1050-54-59BJ [address] [address]REORGWJIL, [place] [address]IM: CHECK WEBSITE 02/08/2018 Secondary NOT GIVENUNK [place] Insurance:SELF PAY [facility] Number: Effective Repository Date:2018-02-08 01/29/2018 Primary NOT GIVENUNK [place] Insurance[facility]LF [facility]Y [facility] Effective Repository Date:2018-01-29
== END ==
PROVIDERS: Family Provider Family Medicine Geriatric Medicine; PCP Family Medicine Geriatric Medicine; Referring Provider Internal Medicine Cardiovascular Disease; Visit Provider Internal Medicine Cardiovascular Disease
DX: Z01.810 Encounter for preprocedural cardiovascular examination (principal); R94.31 Abnormal electrocardiogram [ECG] [EKG]; R01.1 Cardiac murmur, unspecified
CPT/HCPCS: 78452; 93017; 93306; A9500; Q9957; A4216; C8929

== ENCOUNTER → 2018-05-12 06:05 | Outpatient (CLI) | payer OTHER, SELFPAY ==
--- NOTE | 2018-04-08 11:45 | EKG12_ITS ---
Test Reason : PRE OP Blood Pressure : / mmHG Vent. Rate : 072 BPM Atrial Rate : 072 BPM P-R Int : 162 ms QRS Dur : 084 ms QT Int : 360 ms P-R-T Axes : 067 055 013 degrees QTc Int : 394 ms Sinus rhythm with marked sinus arrhythmia Nonspecific ST and T wave abnormality Abnormal ECG Confirmed by MELISA RUTHERFORD, JAROD ([id number]), editorial assistant CATALINA KIM ([id number]) on 04/09/2018 10:51:31 AM Referred By: Stanford Yousif Confirmed By:JAROD VINCENT MD
[2018-04-08 12:10] LABS: Hematocrit 41.9 % (37-47); Hemoglobin 13.2 g/dl (12.0-15.0); Mean Corp Hgb Conc 31.5 g/gl (32-36); Mean Corpuscular Hgb 29.3 pg (27.0-32.0); Mean Corpuscular Volume 93.1 fL (81-99); Mean Platelet Vol. 10.6 fl (6.2-12.0); Platelet Count 379 K/mm3 (150-450); RBC Distribution Width CV 13.2 % (11.6-14.6); White Blood Count 8.1 K/mm3 (4.4-11.0)
[2018-04-08 12:12] LABS: Scan Indicated on CBC? Y/N NO
[2018-04-08 12:40] LABS: Anion Gap 7 (5-15); BUN 12 mg/dL (7-18); BUN/Creat Ratio 17.2 RATIO (10-20); Calcium,Total 9.2 mg/dL (8.5-10.1); Chloride 105 mmol/L (98-107); EST Glomerular Filtration Rate 91 mL/min (>60); Est Glom Filt Rate - Afr Amer 110 mL/min (>60); Glucose 101 mg/dL (74-106); Potassium 3.3 mmol/L (3.5-5.1); Sodium Level 140 mmol/L (136-145)
[2018-04-21 14:56] VITALS: BMI 24.9
--- OUTSIDE RECORDS SUMMARY | 2018-08-13 07:34 | XMS RPT_ITS ---
:1960 Author Organization OHIP Support Name Relationship Address Phone VIOLETA BANERJEE Unavailable [address] + [place] [address] [facility] Unavailable [address] + [place] [address] WOHLFORD, NICO Unavailable [address] + [place] [address] VIOLETA BANERJEE Unavailable [address] + [place] [address] [facility] Unavailable [address] + [place] [address] WOHLFORD, NICO Unavailable [address] + [place] [address] VIOLETA BANERJEE Unavailable [address] + [place] . [facility] Unavailable [address] + [place] [address] WOHLFORD, NICO Unavailable [address] + [place] [address] VIOLETA BANERJEE Unavailable [address] + [place] . [facility] Unavailable [address] + [place] [address] WOHLFORD, NICO Unavailable [address] + [place] [address] VIOLETA BANERJEE Unavailable [address] + [place] . [facility] Unavailable [address] + [place] [address] WOHLFORD, NICO Unavailable [address] + [place] [address] VIOLETA BANERJEE Unavailable [address] + [place] [address] [facility] Unavailable [address] + [place] [address] WOHLFORD, NICO Unavailable [address] + [place] [address] BANERJEE, VIOLETA Unavailable [address] + [place] . [facility] Unavailable [address] + [place] [address] WOHLFORD, NICO Unavailable [address] + [place] [address] BANERJEE, VIOLETA Unavailable [address] + [place] [facility] Unavailable [address] + [place] [address] WOHLFORD, NICO Unavailable [address] + [place] [address] BANERJEE, VIOLETA Unavailable Unavailable + [place] [facility] Unavailable [address] + [place] [address] WOHLFORD, NICO Unavailable [address] + [place] [address] BANERJEE, VIOLETA Unavailable Unavailable + [place] [facility] Unavailable [address] + [place] [address] WOHLFORD, NICO Unavailable [address] + [place] [address] BANERJEE, VIOLETA Unavailable Unavailable + [place] [facility] Unavailable [address] + [place] [address] WOHLFORD, NICO Unavailable [address] + [place] [address] BANERJEE, VIOLETA Unavailable Unavailable + [place] [facility] Unavailable [address] + [place] [address] WOHLFORD, NICO Unavailable [address] + [place] [address] BANERJEE, VIOLETA Unavailable . + ., . . [facility] Unavailable [address] + [place] [address] WOHLFORD, NICO Unavailable [address] + [place] [address] BANERJEE, VIOLETA Unavailable Unavailable + [facility] Unavailable [address] + [place] [address] WOHLFORD, NICO Unavailable [address] + [place] [address] BANERJEE, VIOLETA Unavailable Unavailable + [facility] Unavailable [address] + [place] [address] WOHLFORD, NICO Unavailable [address] + [place] [address] BANERJEE, VIOLETA Unavailable . + ., [place] . [facility] Unavailable [address] + [place] [address] WOHLFORD, NICO Unavailable [address] + [place] [address] BANERJEE, VIOLETA Unavailable Unavailable + [facility] Unavailable [address] + [place] [address] WOHLFORD, NICO Unavailable [address] + [place] [address] BANERJEE, VIOLETA Unavailable Unavailable + [facility] Unavailable [address] + [place] [address] WOHLFORD, NICO Unavailable [address] + [place] [address] [facility] Unavailable [address] + [place] [address] WOHLFORD, INCO Unavailable [address] + [place] [address] [facility] Unavailable [address] + [place] [address] NICO FRANCISCO Unavailable [address] + [place] [address] Care Team Providers Name Role Phone Clovis Garcia Attending Unavailable MoodispawClovis Referring Unavailable Sathya, Terry Chi Primary Care Unavailable Moodispanora, Clovis Attending Unavailable Moodispaw, Clovis Referring Unavailable Moodispaw, Clovis Attending Unavailable Moodispaw, Clovis Referring Unavailable Sathya, Terry Chi Primary Care Unavailable Ingris [place]isle Attending Unavailable Sathya, Terry Chi Referring Unavailable ASSESSMENT, HEALTH RISK Attending Unavailable ASSESSMENT, HEALTH RISK Referring Unavailable Sathya, Terry Chi Primary Care Unavailable Sathya, Terry Chi Attending Unavailable Sathya, Terry Chi Referring Unavailable Sathya, Terry Chi Primary Care Unavailable BenjaStanford genao Attending Unavailable Benja, Stanford Referring Unavailable Marisela Comer Attending Unavailable HeltonIngris marti Attending Unavailable Benja, Stanford Attending Unavailable Benja, Stanford Referring Unavailable Sathya, Terry Chi Primary Care Unavailable Ingris [place] Attending Unavailable Sathya, Terry Chi Referring Unavailable Moodispaw, Clovis Attending Unavailable Moodispaw, Clovis Referring Unavailable Benja, Stanford Attending Unavailable Benja, Stanford Referring Unavailable Sathya, Terry Chi Primary Care Unavailable Benja, Stanford Attending Unavailable Benja, Stanford Referring Unavailable Sathya, Terry Chi Primary Care Unavailable CannelburgMaria T Attending Unavailable Sathya, Terry Chi Referring Unavailable CannelburgMaria T Attending Unavailable Sathya, Terry Chi Primary Care Unavailable BrianLilianay Referring Unavailable Ronaldo Luciano Attending Unavailable Bejna, Stanford Referring Unavailable HeltonIngris marti Attending Unavailable Moodispaw, Clovis Attending Unavailable Moodispaw, Clovis Attending Unavailable Moodispaw, Clovis Referring Unavailable Sathya, Terry Chi Primary Care Unavailable Moodispanora, Clovis Attending Unavailable Moodispaw, Clovis Referring Unavailable Sathya, Terry Chi Primary Care Unavailable PROBLEMS PROBLEMS DATE TYPE CONDITION / CODE ATTENDING STATUS SOURCE 06/09/2018 Unknown I49.3 - Ventricular Orestes, Active [place] premature Ingris Thrasher Community depolarization / Hospital I49.3(ICD-10) Repository 06/09/2018 Unknown E78.5 - Carlisle, Active [place] Hyperlipidemia, Ingris Thrasher Community unspecified / Hospital E78.5(ICD-10) Repository 06/01/2018 Unknown R06.09 - Other forms Moodispaw, Active [place] of dyspnea / [facility] R06.09(ICD-10) Hospital Repository 06/01/2018 Unknown R94.31 - Abnormal Moodispaw, Active [place] electrocardiogram [facility] [ECG] [EKG] / Hospital R94.31(ICD-10) Repository 06/16/2018 Unknown R94.39 - Abnormal Moodispaw, Active [place] result of other [facility] function study / Repository R94.39(ICD-10) 05/27/2018 Unknown I10 - Essential Carlisle, Active [place] (primary) hypertension [facility] / I10(ICD-10) Hospital Repository 04/27/2018 Unknown E87.6 - Hypokalemia / Moodispaw, Active [place] E87.6(ICD-10) [facility] Repository 04/21/2018 Unknown R01.1 - Cardiac Moodispaw, Active [place] murmur, unspecified / [facility] R01.1(ICD-10) Hospital Repository 04/21/2018 Unknown Z01.810 - Encounter Moodispaw, Active [place] for preprocedural [facility] examination / Repository Z01.810(ICD-10) 04/09/2018 Unknown Z12.4 - Encounter for Brian, Active [place] screening for [facility] malignant neoplasm of Hospital cervix / Z12.4(ICD-10) Repository 04/08/2018 Unknown Z12.31 - Encounter for Brian, Active [place] screening mammogram [facility] for malignant neoplasm Hospital of breast / Repository Z12.31(ICD-10) 02/08/2018 Unknown R53.83 - Other fatigue Sathya, Terry Chi Active [place] / R53.83(ICD-10) [facility] Repository 02/08/2018 Unknown Z13.89 - Encounter for Sathya, Terry Chi Active [place] screening for other Community disorder / Hospital Z13.89(ICD-10) Repository PROCEDURES PROCEDURES No Procedure Records FoundRESULTS RESULTS OPERATIVE REPORT Observed: 06/14/2018 Status: F Source: [place] 9:05 AM [facility] REPOSITORY [facility] Medical Records Department [facility] [place] [address] Operative Report 06/14/18 0855 MR#: [id number] Acct: [id number] Name: BEAR FRANCISCO Rep #: [id number] : 1960 58 From: Stanford Yousif MD PCP: Sathya RUTHERFORD,Terry Heller Status: REG SDC Y Location: [place] [address] Report of Operation Date of Procedure: 06/14/18 [...] degrees. The patient was draped steriley. The inDegree Navigation stickers and head piece were placed on the patient. The navigation was verified per protocol. Zero, 30 and 70 rigid nasal endoscopes were used throughout the entire case. The right nose was decongested with afrin pledgets. 1% lidocaine with epinephrine (1:[id number]) was injected into the right middle turbinate, [...] correct at the end of the procedure. 06/14/18 0905 <Electronically signed by Stanford Yousif MD> Date Stanford Yousif MD CC: Stanford Yousif MD; Terry Mcdonnell MD Signed DISCHARGE INSTRUCTION Observed: 06/14/2018 Status: F Source: [place] 7:36 AM [facility] [place] [facility] Medical Records Department [address] [place] [address] Instructions for Home/Discharge Instructions 06/14/18 0734 MR#: [id number] Acct: [id number] Name: BEAR FRANCISCO Rep #: [id number] : 1960 58 From: Stanford Yousif MD PCP: Terry Mcdonnell MD, Chi Status: REG [facility] You will use the following diet at [...] 06/14/2018 Status: F Source: [place] 7:30 AM [facility] [place] Patient: BEAR FRANCISCO : 1960 (58/F) Acct Num: [id number] Phys: Benja RUTHERFORD,Stanford Unit Num: [id number] [place] [facility] Specimen: [id number] Received: 06/14/18923 Spec Type: ETH [...] after decalcification. / AM:daja 06/14/18 TC:3 CPT: 82342 x2, 33373 x2, 49764 x2 HEADER OPERATION: Endoscopic, maxillary antrostomy, tissue [...] bone with no pathologic change. See comment. AM: 06/15/18 Signed Shun Villagomez DO 06/15/18 <signature on file> Performed By: #### PET #### [facility] [address] [place], [address] CARDIOLOGY VISIT Observed: 06/09/2018 Status: F Source: [place] REPORT 1:33 PM [facility] [place] [facility] [address] [place] [address] OFFICE VISIT Date of Service: 06/09/18 MR#: [id number] Acct: [id number] Name: BEAR FRANCISCO Rep #: [id number] : 1960 Provider: Ingris [place] Age/Sex: 58/F Location: [facility] [place] [place] Status: Signed HPI HPI Details: BEAR FRANCISCO, [...] Intake Visit Reasons: FU Heart cath on 06/01/18\PFM Skein Mercerizing Machine Operator Required: No Accompanied by: none Is patient [...] Hyperlipemia (Chronic) Chronic sinusitis (Chronic) History of Guillain-Monroeville syndrome (Chronic) Surgical History History of cardiac [...] Cardiac Catheterization 06/01/18 Chest X-Ray 05/27/18 06/09/18 9886 <Electronically signed by Ingris HANSEN> Date Ingris Henao Signature: Date (if applicable) CC: Terry Mcdonnell MD CBC-COMPLETE BLOOD CNT Collected: 06/01/2018 Status: F Source: [place] NO DIFF 7:51 AM [facility] [place] TYPE CODE TESTS RESULT OUT OF [...] MPV 10.6 Performed By: #### L100.0500 #### [facility] [place], [address] BASIC METABOLIC Collected: 06/01/2018 Status: F Source: [place] PROFILE (BMP) 7:51 AM [facility] [place] TYPE CODE TESTS RESULT OUT OF [...] GAP 7 Performed By: #### L500.2500 #### [facility] [address] [place], [address] PROTHROMBIN TIME W/INR Collected: 06/01/2018 Status: F Source: [place] 7:51 AM [facility] [place] TYPE CODE TESTS RESULT OUT OF RANGE REFERENCE UNITS LAB L300.4150 11.7-14.9 SECONDS Normal PROTIME 13.7 LAB L300.4200 Normal INR 1.1 Performed By: #### L300.3900, L300.4310 #### [facility] [address] [place], [address] PARTIAL THROMBOPLAST Collected: 06/01/2018 Status: F Source: [place] TIME 7:51 AM [facility] [place] TYPE CODE TESTS RESULT OUT OF RANGE REFERENCE UNITS LAB L300.4310 24.1-36.2 Seconds Normal PTT 34.0 Performed By: #### L300.3900, L300.4310 #### [facility] [address] [place], [address] CARDIOLOGY VISIT Observed: 05/27/2018 Status: F Source: [place] REPORT 3:18 PM [facility] REPOSITORY [facility] [address] [place] [address] OFFICE VISIT Date of Service: 05/27/18 MR#: [id number] Acct: [id number] Name: BEAR FRANCISCO Rep #: [id number] : 1960 Provider: Ingris [place] Age/Sex: 58/F Location: [facility] [place] Status: Signed HPI HPI Details: BEAR FRANCISCO, [...] Intake Visit Reasons: Update H AND P Skein Mercerizing Machine Operator Required: No Accompanied by: none Is patient [...] DAILY #30 tab 05/27/18 [Rx Confirmed 05/27/18] [facility] Medical History Ventricular ectopy (Acute) Dyspnea on exertion (Acute) Abnormal stress test (Acute) Abnormal electrocardiogram [ECG] [EKG] (Acute) Hyperlipemia (Chronic) Chronic sinusitis (Chronic) History of Guillain-Monroeville syndrome (Chronic) Surgical History History of tubal [...] Stress Test 05/04/18 Chest X-Ray 05/27/18 05/27/18 6093 <Electronically signed by Ingris HANSEN> Date Ingris HANSEN Cosigner Signature: Date (if applicable) CC: Terry Mcdonnell MD CHEST PA AND LATERAL Observed: 05/27/2018 Status: F Source: [place] 2:55 PM [facility] [place] [facility] Imaging Services [address] [place] [address] Chest PA and Lateral MR#: [id number] Acct: [id number] Name: BEAR FRANCISCO Rep #: [id number] : 1960 F 58 From: Tae Turner MD PCP: Terry Mcdonnell MD, Chi Status: REG CLI Study: Chest PA and Lateral Date of Exam: 05/27/18 Exam# [id number] Ordering Dr: Clovis Garcia MD STUDY: X-RAY [...] CC: Clovis Garcia MD; Terry Mcdonnell MD Camera Mechanic: Signed STRESS REPORT Observed: 05/04/2018 Status: F Source: [place] 5:57 PM [facility] [place] [facility] Cardiovascular Services [address] [place] [address] MR#: [id number] Acct: [id number] Name: BEAR FRANCISCO Rep #: [id number] : 1960 58 From: Clovis Garcia MD [...] 90 %. This note was generated with [employer] software. It may contain incorrect words, spelling, and punctuation that were not noted in checking the note before signing. 05/04/18 1757 <Electronically signed by Clovis Garcia MD> Date Clovis Garcia MD CC: Clovis Garcia MD; Terry Mcdonnell MD Date Dictated: 05/04/18 154 Date Transcribed: 05/04/181545 Camera Mechanic: PM Signed ECHO, COMPLETE W/ Observed: 05/04/2018 Status: F Source: [place] CONTRAST 5:37 PM [facility] [place] [facility] Cardiovascular Services [address] [place] [address] Echo Complete W/ Contrast 05/04/18 1042 MR#: [id number] Acct: [id number] Name: BEAR FRANCISCO Rep #: [id number] : 1960 58 From: Clovis Garcia MD Attending Dr: Clovis Garcia MD Status: REG CLI Ordering Dr: Clovis Garcia MD Date: 05/04/18 Location: [facility] Sex: F C Admitted: Reason For Study: [...] aortic root. Pericardium/Pleural No pericardial effusion. Medication [id number] given slow IV push to enhance endocardial [...] Terry Mcdonnell Chi Performed By: Krys Rivera, ZOHAIBCS, RVT 05/04/18 173 Date Clovis Garcia MD CC: Clovis Garcia MD; Terry Mcdonnell MD Date Dictated: 05/04/18 1042 Date Transcribed: 05/04/181735 Camera Mechanic: Signed BASIC METABOLIC Collected: 04/27/2018 Status: F Source: [place] PROFILE (BMP) 6:29 AM [facility] [place] TYPE CODE TESTS RESULT OUT OF [...] GAP 9 Performed By: #### L500.2500 #### [facility] [address] [place], [address] CARDIOLOGY VISIT Observed: 04/21/2018 Status: F Source: [place] REPORT 5:22 PM [facility] [place] [facility] [address] [place] [address] OFFICE VISIT Date of Service: 04/21/18 MR#: [id number] Acct: [id number] Name: BEAR FRANCISCO Rep #: [id number] : 1960 Provider: Clovis Garcia MD Age/Sex: 58/F [place] [facility] Status: Signed HPI HPI Details: BEAR FRANCISCO, [...] ECG. 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 She remains very active with [...] mg PO DAILY 04/08/18 [History Confirmed 04/21/18] PFS Medical History Abnormal electrocardiogram [ECG] [EKG] (Acute) Hyperlipemia (Chronic) Chronic sinusitis (Chronic) History of Guillain-Monroeville syndrome (Chronic) Surgical History History of tubal [...] Observed: 04/21/2018 Status: F Source: [place] BY BMS 2:46 PM [facility] [place] [facility] [address] [place] [address] 12 Lead EKG performed by BMS 04/21/18 1446 MR#: [id number] Acct: [id number] Name: BEAR FRANCISCO Rep #: [id number] : 1960 58 From: Clovis Garcia MD Attending Dr: Clovis Garcia MD Status: DEP AMB Ordering Dr: Clovis Garcia MD Date: 04/21/18 [place] [facility] Sex: F C Admitted: BMS/12 Lead EKG performed by [facility] ECG Report Interpretation Sinus Bradycardia Subtle nonspecific ST segment abnormalityElectronically signed on 04/21/2018 at 18:05 by Clovis Garcia [employer] Software Version 8610 04/21/18 1808 Date Clovis Garcia MD CC: Date Dictated: 04/21/181445 Date Transcribed: 04/21/181445 Camera Mechanic: PM Signed 12 LEAD ELECTROCARDIOGRAM Observed: 04/09/2018 Status: F Source: [place] 10:51 AM [facility] [place] [facility] Cardiovascular Services [address] [place] [address] 12 Lead EKG 04/08/18 1149 MR#: [id number] Acct: [id number] Name: BEAR FRANCISCO Rep #: [id number] : 1960 58 From: Ronaldo Luciano MD Attending Dr: Stanford Yousif MD Status: PRE SDC Ordering Dr: Stanford Yousif MD Date: 04/08/18 [place] [facility] Sex: F C Admitted: Test Reason : [...] ECG Confirmed by RONALDO LUCIANO MD ([id number]), editorial cartoonist CATALINA KIM ([id number]) on 04/09/2018 10:51:31 AM Referred By: Stanford Yousif Confirmed By:RONALDO LUCIANO MD 04/09/18 1051 Date Ronaldo Luciano MD CC: Stanford Yousif MD; Terry Mcdonnell MD Signed PAP IG HPV APTIMA Collected: 04/08/2018 Status: F Source: [place] ,45 3:00 PM [facility] [place] Order Comment: CYTOLOGY INFORMATION: - CLINICAL INFORMATION: ANNUAL - DATE LMP/MENOPAUSE: - COLLECTION VIAL: Thin Prep Vial - FACSIMILE MACHINE OPERATOR SOURCE: CERVICAL - COLLECTION TECHNIQUE: BRUSH/SPATULA Specimen Comment: [id number] Specimen Comment: Source.............Cervix Specimen Comment: No. of [...] Normal PERFORM Comment Result Comment: Ninoska Polanco, Engraver Steel Plate ([facility]) LAB L7400.2575 . Normal TEST METHOD [...] types (16/18/31/33/35/39/45/ 51/52/56/58/59/66/68) without differentiation. Performed at: [facility] - [facility] [id number] Medical Office Administrator: Christin Ward MD, Phone: [phone] Performed at: =G - [facility] [address] [id number] Medical Office Administrator: Christin Ward MD, Phone: [phone] Performed By: #### L7400.0280 #### [facility] (refer to report for specific site) refer to report for address and phone number [employer] OFFICE VISIT Observed: 04/08/2018 Status: F Source: [place] REPORT 1:39 PM [facility] [address] [place] [address] OFFICE VISIT Date of Service: 04/08/18 MR#: [id number] Acct: [id number] Name: BEAR FRANCISCO Rep #: [id number] : 1960 Provider: TRAE Torres Age/Sex: 58/F [place] [facility] Status: Signed Intake Vital Signs04/08/18 Height 5 ft 4 in 04/08/18 Weight: 145 lb 04/08/18 Body Mass Index (BMI) 24.9 04/08/18 Blood Pressure 140/72 H Intake Visit Reasons: new annual Chief Complaint: NEW annual Skein Mercerizing Machine Operator Required: No Is patient in pain?: No Allergies Sulfa (Sulfonamide Antibiotics) Allergy (Verified 04/08/18 12:48) Unknown Medications Multivitamin [Multiple Vitamins] 1 ea PO DAILY 04/07/18 [History Confirmed 04/08/18] doxycycline hyclate 100 mg capsule 100 mg PO DAILY 04/08/18 [History Confirmed 04/08/18] Is last menstrual period known: No Post menopausal: Yes Patient : No : No [facility] Medical History History of Guillain-Monroeville syndrome (Acute) Surgical History Nasal septal deviation [...] Past Pregnancies Del. DateName GA/Weeks Outcome Route Bth WeighInfant GeLabor LgtAnesthesiDel LocatProvider FOB t n h a n HPI new annual: Details: BEAR FRANCISCO is a 58 year old who presents for new patient annual exam. Denies concerns. No exams many years No menses X 7 years. 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 Reproductive History Questions: Metorrhagia: No, [...] alert, oriented to person, oriented to place HENW[place] Head: normal to inspection Neck Neck: normal [...] year, prn with problems Maria T Torres POST PRODUCTION ASSISTANT Orders Orders: Coding Level of Care Code Off vis,new,prev 40-64yrs Diagnoses Encounter for gynecological examination with abnormal finding Z01.411 Gynecological examination findings: abnormal findings PRESENT Atrophic vaginitis N95.2 04/08/18 1339 <Electronically signed by Maria T HOLLY> Date Maria T BLACKBURNC Cosigner Signature: Date (if applicable) CC: CBC-COMPLETE BLOOD CNT Collected: 04/08/2018 Status: F Source: [place] NO DIFF 11:37 AM [facility] [place] [place] TYPE CODE TESTS RESULT OUT OF [...] MPV 10.6 Performed By: #### L100.0500 #### [facility] [address] [place], [address] BASIC METABOLIC Collected: 04/08/2018 Status: F Source: [place] PROFILE (BMP) 11:37 AM [facility] [place] [place] TYPE CODE TESTS RESULT OUT OF [...] GAP 7 Performed By: #### L500.2500 #### [facility] [address] [place], [address] SINUS/FACIAL BONE Observed: 03/30/2018 Status: F Source: [place] 1:17 PM [facility] Imaging Services [address] [place] [address] Sinus/Facial Bone MR#: [id number] Acct: [id number] Name: BEAR FRANCISCO Rep #: [id number] : 1960 F 58 From: Gallito Holley MD PCP: Sathya RUTHERFORD,Terry Heller Status: REG CLI Study: Sinus/Facial Bone Date of Exam: 03/30/18 Exam# [id number] Ordering Dr: Stanford Yousif MD STUDY: CT [...] CC: Stanford Yousif MD; Terry Mcdonnell MD Camera Mechanic: Signed Observed: 03/03/2018 Status: F Source: [place] CULTURE, NOSE 2:10 PM [facility] [place] Gram Stain Gram Stain 3+ White Blood Cells 2+ Gram positive cocci Rare Gram negative rods Nasoph. Cult Penicillin is the drug of choice for Beta Streptococcal infections. For Penicillin allergic patients, Erythromycin may be used. ORGANISM 1: Streptococcus group C Amount Growth 3+ Performed By: #### M100.0900 #### [facility] [address] [facility] [place], [place], [address] THYROID STIM HORMONE Collected: 02/08/2018 Status: F Source: [place] (TSH) 5:19 PM [facility] [place] TYPE CODE TESTS RESULT OUT OF RANGE REFERENCE UNITS LAB L501.9520 0.358-3.74 uIU/mL Normal TSH 2.57 Performed By: #### L501.9520 #### [facility] [address] [place], [address] HEPATITIS C ANTIBODIES Collected: 02/08/2018 Status: F Source: [place] 5:19 PM [facility] [place] TYPE CODE TESTS RESULT OUT OF RANGE REFERENCE UNITS LAB L3100.0650 0.0-0.9 s/co ratio Normal HEP C AB <0.1 Result Comment: Negative: < 0.8 Indeterminate: 0.8 - 0.9 Positive: > 0.9 The CDC recommends that a positive HCV antibody result be followed up with a HCV Nucleic Acid Amplification test (791593). Performed at: [facility] [id number] Medical Office Administrator: Eduardo Stacy PhD, Phone: [phone] Performed By: #### L3100.0625 #### [facility] (refer to report for specific site) refer to report for address and phone number URINALYSIS, EMPLOYEE Collected: 01/29/2018 Status: F Source: [place] 6[place] [facility] [place] CODE TESTS RESULT OUT OF [...] ESTERASE 100 Performed By: #### L400.0100 #### [facility] [address] [place], [place], [address] CBC, EMPLOYEE Collected: 01/29/2018 Status: F Source: [place] 6:[place] [facility] [place] CODE TESTS RESULT OUT OF [...] Lymph 2.15 Performed By: #### L100.0200 #### [facility] [address] [place], [place], [address] EMPLOYEE PROFILE Collected: 01/29/2018 Status: F Source: [place] 6:[place] AM [facility] [place] CODE TESTS RESULT OUT OF [...] LDH 160 Performed By: #### L500.2900 #### [facility] [address] [place], [address] NICOTINE URINE DRUG Collected: 01/29/2018 Status: F Source: [place] S[place] 6:40 AM [facility] [place] CODE TESTS RESULT OUT OF [...] of Nicotine. Performed By: #### L505.6240 #### [facility] [address] [place], [address] ALLERGIES ALLERGIES DATE TYPE / CODE NAME / CODE REACTION SEVERITY SOURCE 06/09/2018 Drug Sulfa Unknown Unknown [facility] Allergy/4160 (Sulfonamide Hospital 04629(SNOMED Antibiotics)/ Repository CT) [id number](RX NORM) ENCOUNTERS ENCOUNTERS ADMIT/DISCHARGE ACCOUNT ADMITTING ENCOUNTER LOCATION SOURCE NUMBER CLASS 06/14/2018/ [id number] Ambulatory [facility] 9 8 [facility] ing:SDCRoom: Repository AC19 06/09/2018/ [id number] Ambulatory BMSBuilding:B [place] 9 1 [facility] Repository 06/02/2018 [id number] Ambulatory BMSBuilding:B [place] 6 [facility] Repository 06/01/2018 [id number] Ambulatory BMSBuilding:B [place] 0 [facility] Hospital Repository 06/01/2018/ [id number] Ambulatory [place] 9 1 [facility] ing:CLSP Repository 06/01/2018/ [id number] Ambulatory BMSBuilding:W [place] 9 4 [facility] Repository 05/27/2018/ [id number] Ambulatory BMSBuilding:B [place] 9 9 [facility] Repository 05/27/2018 [id number] [place] 1 [facility] ing:RAD Repository 05/12/2018 [id number] Ambulatory [place] 1 [facility] ing:SDC Repository 05/04/2018 [id number] Ambulatory BMSBuilding:W [place] 8 [facility] Repository 05/04/2018 [id number] Ambulatory [place] 3 [facility] ing:CVS Repository 04/27/2018 [id number] Ambulatory [place] 1 [facility] ing:LAB Repository 04/21/2018/ [id number] Ambulatory BMSBuilding:B [place] 8 7 [facility] Repository 04/19/2018 [id number] Ambulatory BMSBuilding:B [place] 2 [facility] Repository 04/08/2018 [id number] [place]ulatory [place] 0 [facility] ing:OPBI Repository 04/08/2018/ [id number] Ambulatory BMSBuilding:B [place] 8 2 [facility] Repository 04/08/2018 [id number] Ambulatory BMSBuilding:W [place] 9 [facility] Hospital Repository 03/30/2018 [id number] Ambulatory [place] 5 [facility] ing:CT Repository 03/03/2018 [id number] Ambulatory [place] 1 [facility] ing:LABSPEC Repository 02/08/2018 [id number] Ambulatory [place] 8 [facility] ing:LAB Repository 01/29/2018 [id number] Ambulatory [place] 4 [facility] ing:EMPH Repository PAYERS PAYERS ENCOUNTER GUARANTOR PAYER SUBSCRIBER SOURCE 06/14/2018 BEAR Black Primary Insurance:[facility] Black [place] [id number] [facility] [place]LF[place]DOB: [facility] [id number] [id number]: Number: Repository [id number] (HP) Date:5489-63-14[address] [address], [place] [address]ED: CHECK WEBSITE 06/14/2018 Secondary NOT GIVENUNK [place] Insurance:SELF PAY [facility] Number: Effective Repository Date:2018-06-03 06/09/2018 BEAR Black Primary Insurance:[facility] BEAR Black [place] [id number] [facility] WOHLFORDDOB: [facility] [id number] [place]ille [id number]: Number: Repository [id number] (HP) Date:4183-45-53WJ [address] [address]QIAYCPUAVKelly [place] [address]WP: CHECK WEBSITE 06/09/2018 Secondary NOT GIVENUNK [place] Insurance:SELF PAY [facility] Number: Effective Repository Date:2018-06-09 06/02/2018 BEAR Black Primary Insurance:[facility] BEAR Black [place] [id number] [facility] WOHLFORDDOB: [facility] [id number] View Regional Medical Center [address]Oeh: Number: Repository [id number] (HP) Date:8587-25-25IP [address] [address]MERLNFZ, [place] [address]BP: CHECK WEBSITE 06/02/2018 Secondary NOT GIVENUNK [place] Insurance:SELF PAY [facility] Number: Effective Repository Date:2018-06-02 06/01/2018 BEAR K Primary Insurance:[facility] BEAR Black [place] [id number] [facility] WOHLFORDDOB: [facility] 4411-25-25SXGMountain View Regional Medical Center [address]Qac: Number: Repository [id number] (HP) Date:2070-73-42QO [address] [address]IBWMECEVL, [place] [address]JF: CHECK WEBSITE 06/01/2018 Secondary NOT GIVENUNK [place] Insurance:SELF PAY [facility] Number: Effective Repository Date:2018-06-01 06/01/2018 BEAR Black Primary Insurance:[facility] BEAR Black [place] [id number] [facility] W[place]LFORDDOB: [facility] [id number] View Regional Medical Center [address]Sst: Number: Repository [id number] (HP) Date:9670-14-41QR [address] [address]BIQXXDWEF, [place] [address]CZ: CHECK WEBSITE 06/01/2018 Secondary NOT GIVENUNK [place] Insurance:SELF PAY [facility] Number: Effective Repository Date:2018-05-06 06/01/2018 BEAR [place] Primary Insurance:[facility] BEAR Black [place] [id number] [facility] [place]LF[place]DOB: [facility] [id number] View Regional Medical Center [address]Puw: Number: Repository [id number] (HP) Date:9201-73-89EW [address] [address]MPNRHAQMT, [place] [address]OO: CHECK WEBSITE 06/01/2018 Secondary NOT GIVENUNK [place] Insurance:SELF PAY [facility] Number: Effective Repository Date:2018-06-01 05/27/2018 BEAR K Primary Insurance:[facility] BEAR Black [place] [id number] [facility] [place]LFORDDOB: [facility] [id number] View Regional Medical Center [address]Rof: Number: Repository [id number] (HP) Date:9672-23-70YV [address] [address]OXVDHGDXE, [place] [address]VL: CHECK WEBSITE 05/27/2018 Secondary NOT GIVENUNK [place] Insurance:SELF PAY [facility] Number: Effective Repository Date:2018-05-27 05/27/2018 BEAR K Primary Insurance:[facility] BEAR Black [place] [id number] [facility] [place]LF[place]DOB: [facility], SERVICESPolicy [id number] View Regional Medical Center [address]Ybt: Number: Repository [id number] (HP) Date:6505-27-84GS [address] [address]ECKXPQRUZ, [place] [address]JY: CHECK WEBSITE 05/27/2018 Secondary NOT GIVENUNK [place] Insurance:SELF PAY [facility] Number: Effective Repository Date:2018-05-27 05/12/2018 BEAR K Primary Insurance:[facility] BEAR Wayne [place] [id number] [facility] WOHLFORDDOB: [facility] [id number] View Regional Medical Center [address]Hiy: Number: Repository [id number] (HP) Date:0188-04-25JU [address] [address]SVTKYGNPG, [place] [address]SL: CHECK WEBSITE 05/12/2018 Secondary NOT GIVENUNK [place] Insurance:SELF PAY [facility] Number: Effective Repository Date:2018-04-01 05/04/2018 BEAR K Primary Insurance:[facility] BEAR K [place] [id number] [facility] WOHLFORDDOB: [facility] [id number] View Regional Medical Center [address]Thj: Number: Repository [id number] (HP) Date:4518-66-32CT [address] [address]DHHAPRRCC, [place] [address]OJ: CHECK WEBSITE 05/04/2018 Secondary NOT GIVENUNK [place] Insurance:SELF PAY [facility] Number: Effective Repository Date:2018-05-04 05/04/2018 BEAR K Primary Insurance:[facility] BEAR [place] [id number] [facility] W[place]LFORDDOB: [facility] 7488-28-98ECBMountain View Regional Medical Center [address]Ymd: Number: Repository [id number] (HP) Date:4509-24-41IS [address] [address]BASSQDBRJ, [place] [address]PV: CHECK WEBSITE 05/04/2018 Secondary NOT GIVENUNK [place] Insurance:SELF PAY [facility] Number: Effective Repository Date:2018-04-21 04/27/2018 BEAR Black Primary Insurance:[facility] BEAR Black [place] [id number] [facility] WOHLFORDDOB: [facility] [id number] View Regional Medical Center [address]Ctr: Number: Repository [id number] (HP) Date:7393-89-37TO [address] [address]YXNNMQJIS, [place] [address]EV: CHECK WEBSITE 04/27/2018 Secondary NOT GIVENUNK [place] Insurance:SELF PAY [facility] Number: Effective Repository Date:2018-04-27 04/21/2018 BEAR Black Primary Insurance:[facility]AR Black [place] [id number] [facility] WOHLFORDDOB: [facility] [id number] View Regional Medical Center [address]Cop: Number: Repository [id number] (HP) Date:1086-42-42ER [address] [address]LJWRHZREJ, [place] [address]GN: CHECK WEBSITE 04/21/2018 Secondary NOT GIVENUNK [place] Insurance:SELF PAY [facility] Number: Effective Repository Date:2018-04-21 04/19/2018 BEAR Black Primary Insurance:[facility] Black [place] [id number] [facility] WOHLFORDDOB: [facility] [id number] View Regional Medical Center [address]Rmw: Number: Repository [id number] (HP) Date:2346-77-27LC [address] [address]FKMSSGNPZ, [place] [address]PM: CHECK WEBSITE 04/19/2018 Secondary NOT GIVENUNK [place] Insurance:SELF PAY [facility] Number: Effective Repository Date:2018-04-19 04/08/2018 BEAR Black Primary Insurance:[facility] Black [place] [id number] [facility] WOHLFORDDOB: [facility] [id number] View Regional Medical Center [address]Pry: Number: Repository [id number] (HP) Date:6218-35-80KP [address] [address]UWMBPLLGD, [place] [address]HO: CHECK WEBSITE 04/08/2018 Secondary NOT GIVENUNK [place] Insurance:SELF PAY [facility] Number: Effective Repository Date:2018-04-08 04/08/2018 BEAR Black Primary Insurance:[facility] Black [place] [id number] [facility] WOHLFORDDOB: [facility] 0649-55-21LUFMountain View Regional Medical Center [address]Maw: Number: Repository [id number] (HP) Date:0519-59-66JA [address] [address]CIGROMPUY, [place] [address]IY: CHECK WEBSITE 04/08/2018 Secondary NOT GIVENUNK [place] Insurance:SELF PAY [facility] Number: Effective Repository Date:2018-04-08 04/08/2018 BEAR Black Primary Insurance:[facility] BEAR Black [place] [id number] [facility] WOHLFORDDOB: [facility] [id number] View Regional Medical Center [address]Rvh: Number: Repository [id number] (HP) Date:0687-31-61FM [address] [address]LBUOPSVZE, [place] [address]SZ: CHECK WEBSITE 04/08/2018 Secondary NOT GIVENUNK [place] Insurance:SELF PAY [facility] Number: Effective Repository Date:2018-04-08 03/30/2018 BEAR Black Primary Insurance:[facility] Black [place] [id number] [facility] WOHLFORDDOB: [facility] 2616-94-16VALMountain View Regional Medical Center [address]Imw: Number: Repository [id number] (HP) Date:0759-33-28PN [address] [address]YTPHFAGMC, [place] [address]AX: CHECK WEBSITE 03/30/2018 Secondary NOT GIVENUNK [place] Insurance:SELF PAY [facility] Number: Effective Repository Date:2018-03-19 03/03/2018 BEAR Black Primary Insurance:[facility] BEAR Black [place] [id number] [facility] AZLEDOB: [facility] 1533-89-91WTIMountain View Regional Medical Center [address]Pzb: Number: Repository [id number] (HP) Date:0082-32-08GG [address] [address]DFXUXTPZM, [place] [address]FR: CHECK WEBSITE 03/03/2018 Secondary NOT GIVENUNK [place] Insurance:SELF PAY [facility] Number: Effective Repository Date:2018-03-03 02/08/2018 BEAR Black Primary Insurance:[facility] Black [place] [id number] [facility] AZLEDOB: [facility] [id number] View Regional Medical Center [address]Rmi: Number: Repository [id number] () Date:7389-65-44PH [address] [address]IIYKKYTRG, [place] [address]LZ: CHECK WEBSITE 02/08/2018 Secondary NOT GIVENUNK [place] Insurance:SELF PAY [facility] Number: Effective Repository Date:2018-02-08 01/29/2018 Primary NOT GIVENUNK [place] Insurance:SELF PAY [facility] Number: Effective Repository Date:2018-01-29
== END ==
PROVIDERS: Family Provider Family Medicine Geriatric Medicine; PCP Family Medicine Geriatric Medicine; Referring Provider Otolaryngology; Visit Provider Otolaryngology
DX: Z01.818 Encounter for other preprocedural examination (principal)
CPT/HCPCS: 36415; 80048; 85027; 93005

== ENCOUNTER → 2018-05-27 14:52 | Outpatient (CLI) | payer OTHER, SELFPAY ==
[2018-05-27 14:11] VITALS: BMI 24.9
--- NOTE | 2018-05-27 14:55 | RAD_ITS ---
STUDY: X-RAY CHEST REASON FOR EXAM: Female, 58 years old. Pre-op chest radiograph TECHNIQUE: 2 views COMPARISON: None. FINDINGS: The lungs are clear and expanded. There is no demonstrated pleural abnormality. Normal size heart. Normal mediastinum and urban. Normal visualized pulmonary arteries. Normal visualized aortic arch and descending thoracic aorta. Normal visualized thoracic spine. Normal visualized ribs, clavicles, and shoulders. There is no demonstrated abnormality of the visualized soft tissue structures of the upper abdomen. RAD/Chest PA and Lateral IMPRESSION: Normal x-ray examination of the chest. No acute findings in the lungs Electronically Signed: Tae Turner MD at 7:49 EST Tel , Service support ,
== END ==
PROVIDERS: Family Provider Family Medicine Geriatric Medicine; PCP Family Medicine Geriatric Medicine; Referring Provider Internal Medicine Cardiovascular Disease; Visit Provider Internal Medicine Cardiovascular Disease
DX: I49.3 Ventricular premature depolarization (principal); R06.09 Other forms of dyspnea; R94.31 Abnormal electrocardiogram [ECG] [EKG]; R94.39 Abnormal result of other cardiovascular function study
CPT/HCPCS: 71046

== ENCOUNTER 2018-06-01 07:47 | Day surgery (SDC) | payer OTHER, SELFPAY ==
[2018-04-21 14:56] VITALS: BMI 24.9
[2018-05-27 14:11] VITALS: BMI 24.9
[2018-05-31 09:41] VITALS: BMI 24.9
[2018-06-01 08:08] LABS: Hemoglobin 11.9 g/dl (12.0-15.0); Mean Corp Hgb Conc 31.3 g/gl (32-36); Mean Corpuscular Hgb 28.7 pg (27.0-32.0); Mean Corpuscular Volume 91.8 fL (81-99); Mean Platelet Vol. 10.6 fl (6.2-12.0); Platelet Count 340 K/mm3 (150-450); RBC Distribution Width CV 12.8 % (11.6-14.6); RBC Distribution Width SD 43.2 fl (35.1-43.9); Red Blood Count 4.14 M/mm3 (4.2-5.4); White Blood Count 4.5 K/mm3 (4.4-11.0)
[2018-06-01 08:09] LABS: Scan Indicated on CBC? Y/N NO
[2018-06-01 08:20] LABS: Anion Gap 7 (5-15); BUN 11 mg/dL (7-18); BUN/Creat Ratio 17.1 RATIO (10-20); Calcium,Total 9.1 mg/dL (8.5-10.1); Chloride 110 mmol/L (98-107); Creatinine, Serum 0.64 mg/dL (0.55-1.02); EST Glomerular Filtration Rate 100 mL/min (>60); Est Glom Filt Rate - Afr Amer 121 mL/min (>60); Estimated Creatinine Clearance 80.72 ml/min; Glucose 113 mg/dL (74-106); Potassium 3.8 mmol/L (3.5-5.1); Sodium Level 142 mmol/L (136-145)
[2018-06-01 08:31] LABS: International Normalized Ratio 1.1; Prothrombin Time (Protime)PT. 13.7 SECONDS (11.7-14.9)
--- NOTE | 2018-06-01 22:27 | CL.D_ITS ---
Patient Name: BEAR FRANCISCO Study Date: 06/01/2018 Performing: Clovis Garcia MD Ht: 64 inches 163 cm : 1960 Wt: 145.7 lbs 66 kg Age: 58 Gender: female BSA: 1.71 PROCEDURE(S) PERFORMED WS01-NIV/COR/LV CLINICAL PROFILE AND INDICATIONS Indications: Suspected CAD Heart Failure: None Stress/Imaging Standard Exercise Stress Test: Yes Result: Positive Angina Classification Anginal Classification w/in 2 Weeks: CCS II CAD Presentations: Other: shortness of breath (angina pectoris equivalent) CONCLUSIONS Elevated Left Ventricular End Diastolic Pressure (mild) Normal LV size, wall motion,and systolic function LVEF: by LV gram 65 % Normal coronary arteries Mitral Valve: mild scalloping potentially c/w mild MVP without obvious MR RECOMMENDATIONS DESCRIPTION OF PROCEDURE The patient arrived to the procedure lab. The risks and benefits of the procedure as well as a full d escription of our services here and current unavailability of surgical backup were fully explained to the patient and/or their significant other prior to the catheterization. The Timeout was completed, verifying the correct patient and procedure. The patient's procedural site was prepped and draped in the usual fashion. Local anesthetic was given subcutaneously to right radial region with Lidocaine 2% . Using a modified Seldinger technique, arterial access was obtained via the right radial artery, a 6 Fr sheath was inserted. Right Coronary Artery selective angiography was then performed in multiple v iews using a 5 Fr. 4.0 [place] catheter. Left Ventriculography was performed in LAWSON projection using a 5 Fr. Pigtail catheter. LV to AO pullback pressures were then recorded.The arterial sheath was pulled and a TR Band was applied for hemostasis CORONARY ANGIOGRAPHY DOMINANCE: Right Dominant LEFT HEART ASSESSMENT Left Ventricular Ejection Fraction: by LV Gram 65 % Normal LV wall motion Elevated Left Ventricular End Diastolic Pressure LVEDP: 16 mmHg LEFT MAIN: Angiographically normal LEFT ANTERIOR DECENDING ARTERY: Angiographically normal CIRCUMFLEX ARTERY: Angiographically normal RIGHT CORONARY ARTERY: Angiographically normal VALVE FINDINGS: Normal Aortic Valve function Mitral Valve: mild scalloping potentially c/w mild MVP without obvious MR mild scalloping potentially c/w mild MVP without obvious MR AORTIC ROOT: Angiographically normal COMPLICATIONS No Complications PROCEDURE MEDICATIONS Fentanyl 50 mcg IV Versed 1 mg IV Fentanyl 50 mcg IV Versed 1 mg IV Oxygen: 2 L/min via nasal cannula SUMMARY OF HEMODYNAMIC DATA Time AIR REST ECG 08:15:49 ECG 10:15:21 AO 119/64 (89) SA 11:09:19 LV 128/0, 16 11:19:54 LV 136/0, 15 11:20:01 LV 129/-1, 15 11:21:19 LVp 132/-3, 14 11:21:24 AOp 129/58 (88) 11:21:29 Signed By Clovis Garcia MD On 06/01/2018 17:31:27 Clovis Garcia MD
== END 2018-06-01 14:47 | disposition home or self-care (01) ==
LOC: CLSP 07:48
PROVIDERS: Family Provider Family Medicine Geriatric Medicine; PCP Family Medicine Geriatric Medicine; Referring Provider Internal Medicine Cardiovascular Disease; Visit Provider Internal Medicine Cardiovascular Disease
DX: R94.39 Abnormal result of other cardiovascular function study (principal); R94.31 Abnormal electrocardiogram [ECG] [EKG]; I10 Essential (primary) hypertension; I49.3 Ventricular premature depolarization; E78.5 Hyperlipidemia, unspecified; J32.9 Chronic sinusitis, unspecified; G61.0 Guillain-Barre syndrome; R01.1 Cardiac murmur, unspecified; Z79.82 Long term (current) use of aspirin; Z79.899 Other long term (current) drug therapy; Z87.891 Personal history of nicotine dependence
CPT/HCPCS: 36415; 80048; 85027; 85610; 85730; 93458; 99152; 99153; J7040; Q9967; C1769; C1894

== ENCOUNTER 2018-06-14 05:55 | Day surgery (SDC) | payer OTHER, SELFPAY ==
[2018-05-31 09:41] VITALS: BMI 24.9
[2018-06-09 12:55] VITALS: BMI 25.0
[2018-06-14 06:14] VITALS: BP 140/55; PULSE 58; RESP 16; TEMP 36.6; O2SAT 100; BMI 25.4
--- NOTE | 2018-06-14 07:30 | ETH_PTH ---
PATIENT: BEAR FRANCISCO [place] [facility] [id number] AGE/SX: 58/F ROOM: RE06/14/[address]: Dr. Stanford Yousif MD : 1960 BED: DIS: 06/14/2018 SPEC #: [id number] RECD: 06/14/18 09:24 STATUS: JO ANN SELMA #: [id number] LAUREL: 06/14/18 07:[address]: Stanford Yousif DEPT: SURGICAL PATHOLOGY RECD BY: Rico Landeros ENTERED: 06/14/18 10:24 SP TYPE: ETH TISS OTHR DR: Dr. Terry Mcdonnell MD Tissues: A - Ethmoid sinus, NOS B - Ethmoid sinus, NOS Procedures: PAS Fungus (control) Decalcification bone/plaque Special Stain Group I Surgery Specimen Level III HEADER OPERATION: Endoscopic, maxillary antrostomy, tissue removal, total ethmoid PRE-OP DIAGNOSIS: Chronic sinusitis, polyp of nasal cavity TISSUE SUBMITTED: A. Right maxillary sinus contents in saline, B. Right sinus tissue in formalin MICROSCOPIC DIAGNOSIS A. Right maxillary sinus contents, excision: Consistent with chronic sinusitis. 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 Minute fragments of bone with no pathologic change. See comment. B. Right sinus contents, excision: Consistent with chronic sinusitis. 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 Minute fragments of bone with no pathologic change. See comment. AM:daja 06/15/18 COMMENT A & B. PASF stain for fungal organisms is positive. Matched control is appropriate. MICROSCOPIC DESCRIPTION Slides are reviewed. GROSS DESCRIPTION A - Received in fixative is one container labeled with the patient's name and designated right maxillary sinus contents. The specimen consists of multiple irregular fragments of red-jiménez soft tissue that in aggregate measure 2.5 x 2 x 0.1 cm. The specimen is totally submitted in one cassette after decalcification. B - Received in fixative is one container labeled with the patient's name and designated right sinus contents. The specimen consists of multiple irregular fragments of light pink-jiménez soft tissue that in aggregate measure 3 x 2 x 0.2 cm. The specimen is totally submitted in one cassette after decalcification. / AM:daja 06/14/18 TC:3 CPT: 42365 x2, 16747 x2, 85719 x2
--- NOTE | 2018-06-14 07:36 | DCINST_ITS ---
You will use the following diet at home:: No restrictions, Regular Discharge Activity: - - No noseblowing or strenuous activity May shower in (days): 0 Additional Activity Instructions:: Start irrigating on 06/15/18. Irrigate at least 4x/day. Allergies/Adverse Reactions: Allergies Sulfa (Sulfonamide Antibiotics) Allergy (Verified 06/09/18 12:54) Unknown Medications to take at Discharge Multivitamin [Multiple Vitamins] 1 ea PO DAILY 04/07/18 doxycycline hyclate 100 mg capsule 100 mg PO DAILY 04/08/18 aspirin 81 mg tablet,delayed release 81 mg PO DAILY 05/06/18 atorvastatin 20 mg tablet 20 mg PO DAILY #30 tab 05/06/18 metoprolol succinate ER 25 mg tablet,extended release 24 hr 25 mg PO DAILY #90 tab 06/09/18 Primary Care Physician: Terry Mcdonnell Chi, MD [Primary Care Provider] - Test Results: Test results from this visit will be discussed in further detail at your follow- up appointment, if applicable.
[2018-06-14] MEDS: Oxymetazoline 0.05% 1 SPRAY SPRAY.BTL 15 SPRAY (08:00)
--- NOTE | 2018-06-14 08:55 | PCM.OPRPT ---
Report of Operation Date of Procedure: 06/14/18 Pre-Operative Diagnosis: right chronic sinusitis. right fungal sinusitis Post-Operative Diagnosis: same Surgery/Procedure Performed:: Right maxillary antrostomy with tissue removal. Right total ethmoidectomy. Use of navigation Description of Surgical Findings:: fungus in right maxillary sinus Type of Anesthesia:: General Anesthesiologist: Sincere Wagner Specimen's removed: right sinus contents-tissue and maxillary sinus contents Estimated Blood Loss (mL): minimal Description of Procedure: The patient was taken to the OR on 06/14/18. She was was placed in the supine position on the OR table. She was given sufficient general endotracheal anesthesia. The table was elevated 30 degrees. The patient was draped steriley. The [employer] Navigation stickers and head piece were placed on the patient. The navigation was verified per protocol. Zero, 30 and 70 rigid nasal endoscopes were used throughout the entire case. The right nose was decongested with afrin pledgets. 1% lidocaine with epinephrine ([id number]) was injected into the right middle turbinate, uncinate process and right middle meatal polyp. After vasoconstriction. The polyp was removed using a sinus shaver. It was chased up to the superior uncinate. A ball tipped sinus seeker was placed in the maxillary sinus. The antrostomy was created with a back biter. The uncinate process was then removed with a sinus shaver. There was obvious fungal elements filling the maxillary sinus. This was removed with suction and Blakesly-Wile forceps. This was sent separately from the tissue in saline. The maxillary sinus mucosa was quite hypertrophic/inflamed. I irrigated the maxillary sinus with saline and the irrigant was suctioned from the nasopharynx. Next the ethmoid bulla was opened and anterior and posterior ethmoidectomy was carried out with a curette and sinus shaver. Sparing suction cautery was used. Hemostasis was achieved with afrin pledgets and Eleanor powder. The patient was then awoken and brought to the recovery room in stable condition. Blood loss minimal, replacement none. Sponge needle and instrument count were correct at the end of the procedure.
[2018-06-14 09:03] VITALS: BP 140/55; BP 147/83; PULSE 74; RESP 16; TEMP 37; O2SAT 98
--- NOTE | 2018-06-14 09:05 | OP.PCM_ITS ---
Report of Operation Date of Procedure: 06/14/18 Pre-Operative Diagnosis: right chronic sinusitis. right fungal sinusitis Post-Operative Diagnosis: same Surgery/Procedure Performed:: Right maxillary antrostomy with tissue removal. Right total ethmoidectomy. Use of navigation Description of Surgical Findings:: fungus in right maxillary sinus Type of Anesthesia:: General Anesthesiologist: Sincere Wagner Specimen's removed: right sinus contents-tissue and maxillary sinus contents Estimated Blood Loss (mL): minimal Description of Procedure: The patient was taken to the OR on 06/14/18. She was was placed in the supine position on the OR table. She was given sufficient general endotracheal anesthesia. The table was elevated 30 degrees. The patient was draped steriley. The [employer] Navigation stickers and head piece were placed on the patient. The navigation was verified per protocol. Zero, 30 and 70 rigid nasal endoscopes were used throughout the entire case. The right nose was decongested with afrin pledgets. 1% lidocaine with epinephrine ([id number]) was injected into the right middle turbinate, uncinate process and right middle meatal polyp. After vasoconstriction. The polyp was removed using a sinus shaver. It was chased up to the superior uncinate. A ball tipped sinus seeker was placed in the maxillary sinus. The antrostomy was created with a back biter. The uncinate process was then removed with a sinus shaver. There was obvious fungal elements filling the maxillary sinus. This was removed with suction and Blakesly-Wile forceps. This was sent separately from the tissue in saline. The maxillary sinus mucosa was quite hypertrophic/inflamed. I irrigated the maxillary sinus with saline and the irrigant was suctioned from the nasopharynx. Next the ethmoid bulla was opened and anterior and posterior ethmoidectomy was carried out with a curette and sinus shaver. Sparing suction cautery was used. Hemostasis was achieved with afrin pledgets and Eleanor powder. The patient was then awoken and brought to the recovery room in stable condition. Blood loss minimal, replacement none. Sponge needle and instrument count were correct at the end of the procedure.
[2018-06-14 09:15] VITALS: BP 136/70; BP 140/55; PULSE 62; RESP 16; O2SAT 99
[2018-06-14 09:30] VITALS: BP 128/76; BP 140/55; PULSE 70; RESP 16; TEMP 36.4; O2SAT 99
[2018-06-14] MEDS: HYDROcodone Bitartrate/Apap 5/325 Tablet PO (09:45)
[2018-06-14 10:15] VITALS: BP 131/67; BP 140/55; PULSE 58; RESP 16; TEMP 36.9; O2SAT 99
--- OUTSIDE RECORDS SUMMARY | 2018-08-16 14:18 | XMS RPT_ITS ---
:1960 Author Organization OHIP Support Name Relationship Address Phone VIOLETA BANERJEE Unavailable [address] + [place] [address] [facility] Unavailable [address] + [place] [address] WOHLFORD, NICO Unavailable [address] + [place] [address] VIOLETA BANERJEE Unavailable [address] + [place] [address] [facility] Unavailable [address] + [place] [address] WOHLFORD, NICO Unavailable [address] + [place] [address] VIOLETA BANERJEE Unavailable [address] + [place] . [facility] Unavailable [address] + [place] [address] WOHLFORD, NICO Unavailable [address] + [place] [address] VIOLETA BANERJEE Unavailable [address] + [place] . [facility] Unavailable [address] + [place] [address] WOHLFORD, NICO Unavailable [address] + [place] [address] VIOLETA BANERJEE Unavailable [address] + [place] . [facility] Unavailable [address] + [place] [address] WOHLFORD, NICO Unavailable [address] + [place] [address] VIOLETA BANERJEE Unavailable [address] + [place] [address] [facility] Unavailable [address] + [place] [address] WOHLFORD, NICO Unavailable [address] + [place] [address] BANERJEE, VIOLETA Unavailable [address] + [place] . [facility] Unavailable [address] + [place] [address] WOHLFORD, NICO Unavailable [address] + [place] [address] BANERJEE, VIOLETA Unavailable [address] + [place] [facility] Unavailable [address] + [place] [address] WOHLFORD, NICO Unavailable [address] + [place] [address] BANERJEE, VIOLETA Unavailable Unavailable + [place] [facility] Unavailable [address] + [place] [address] WOHLFORD, NICO Unavailable [address] + [place] [address] BANERJEE, VIOLETA Unavailable Unavailable + [place] [facility] Unavailable [address] + [place] [address] WOHLFORD, NICO Unavailable [address] + [place] [address] BANERJEE, VIOLETA Unavailable Unavailable + [place] [facility] Unavailable [address] + [place] [address] WOHLFORD, NICO Unavailable [address] + [place] [address] BANERJEE, VIOLETA Unavailable Unavailable + [place] [facility] Unavailable [address] + [place] [address] WOHLFORD, NICO Unavailable [address] + [place] [address] BANERJEE, VIOLETA Unavailable . + ., . . [facility] Unavailable [address] + [place] [address] WOHLFORD, NICO Unavailable [address] + [place] [address] BANERJEE, VIOLETA Unavailable Unavailable + [facility] Unavailable [address] + [place] [address] WOHLFORD, NICO Unavailable [address] + [place] [address] BANERJEE, VIOLETA Unavailable Unavailable + [facility] Unavailable [address] + [place] [address] WOHLFORD, NICO Unavailable [address] + [place] [address] BANERJEE, VIOLETA Unavailable . + ., [place] . [facility] Unavailable [address] + [place] [address] WOHLFORD, NICO Unavailable [address] + [place] [address] BANERJEE, VIOLETA Unavailable Unavailable + [facility] Unavailable [address] + [place] [address] WOHLFORD, NICO Unavailable [address] + [place] [address] BANERJEE, VIOLETA Unavailable Unavailable + [facility] Unavailable [address] + [place] [address] WOHLFORD, NICO Unavailable [address] + [place] [address] [facility] Unavailable [address] + [place] [address] WOHLFORD, NICO Unavailable [address] + [place] [address] [facility] Unavailable [address] + [place] [address] NICO FRANCISCO Unavailable [address] + [place] [address] Care Team Providers Name Role Phone Clovis Garcia Attending Unavailable Moodispaw, Clovis Referring Unavailable Sathya, Terry Chi Primary Care Unavailable Moodispanora, Clovis Attending Unavailable Moodispaw, Clovis Referring Unavailable Moodispaw, Clovis Attending Unavailable Moodispaw, Clovis Referring Unavailable Sathya, Terry Chi Primary Care Unavailable Ingris Carlisle Attending Unavailable Sathya, Terry Chi Referring Unavailable KilMarisela kaufman Attending Unavailable HeltonIngris Attending Unavailable ASSESSMENT, HEALTH RISK Attending Unavailable ASSESSMENT, HEALTH RISK Referring Unavailable Sathya, Terry Chi Primary Care Unavailable Sathya, Terry Chi Attending Unavailable Sathya, Terry Chi Referring Unavailable Sathya, Terry Chi Primary Care Unavailable Benja, Stanford Attending Unavailable Benja, Stanford Referring Unavailable Benja, Stanford Attending Unavailable Benja, Stanford Referring Unavailable Sathya, Terry Chi Primary Care Unavailable Benja, Stanford Attending Unavailable Benja, Stanford Referring Unavailable Sathya, Terry Chi Primary Care Unavailable Benja, Stanford Attending Unavailable Benja, Stanford Referring Unavailable Sathya, Terry Chi Primary Care Unavailable Ingris Carlisle Attending Unavailable Sathya, Terry Chi Referring Unavailable Moodispaw, Clovis Attending Unavailable Moodispaw, Clovis Referring Unavailable AldaMaria T Attending Unavailable Sathya, Terry Chi Referring Unavailable AldaLilianay Attending Unavailable Sathya, Terry Chi Primary Care Unavailable Brian Maria T Referring Unavailable Ronaldo Luciano Attending Unavailable Benja, Stanford Referring Unavailable Ingris Helton Attending Unavailable Moodispaw, Clovis Attending Unavailable Moodispaw, [...] Repository 06/09/2018 Unknown E78.5 - Carl[place], Active [employer] Hyperlipidemia, Ingris Thrasher Community unspecified / Hospital E78.5(ICD-10) Repository 06/01/2018 Unknown R06.09 - Other forms Moodispaw, Active [place] of dyspnea / [facility] R06.09(ICD-10) Hospital Repository 06/01/2018 Unknown R94.31 - Abnormal Moodispaw, Active [employer] electrocardiogram [facility] [ECG] [EKG] / Hospital R94.31(ICD-10) Repository 06/16/2018 Unknown R94.39 - Abnormal Moodisp[place], Active [employer] result of other [facility] function study / Repository R94.39(ICD-10) 05/27/2018 Unknown I10 - Essential Carlisle, Active [place] (primary) hypertension [facility] / I10(ICD-10) Hospital Repository 04/27/2018 Unknown E87.6 - Hypokalemia / Moodispaw, Active [place] E87.6(ICD-10) [facility] Repository 04/21/2018 Unknown R01.1 - Cardiac Moodispaw, Active [employer] murmur, unspecified / [facility] R01.1(ICD-10) Hospital Repository 04/21/2018 Unknown Z01.810 - Encounter Moodispaw, Active [employer] for preprocedural [facility] examination / Repository Z01.810(ICD-10) 04/09/2018 Unknown Z12.4 - Encounter for Brian, Active [employer] screening for [facility] malignant neoplasm of Hospital cervix / Z12.4(ICD-10) Repository 04/08/2018 Unknown Z12.31 - Encounter for Brian, Active [place] screening mammogram [facility] for malignant neoplasm Hospital of breast / Repository Z12.31(ICD-10) 02/08/2018 Unknown R53.83 - Other fatigue Sathya, Terry Chi Active [employer] / R53.83(ICD-10) [facility] Repository 02/08/2018 Unknown Z13.89 - Encounter for Sathya, Terry Chi Active [place] screening for other Community disorder / Hospital Z13.89(ICD-10) Repository PROCEDURES PROCEDURES No Procedure Records FoundRESULTS RESULTS OPERATIVE REPORT Observed: 06/14/2018 Status: F Source: [place] 9:05 AM [facility] HOSPITAL REPOSITORY [facility] Medical Records Department [facility] [place] [address] Operative Report 06/14/18 0855 MR#: [id number] Acct: [id number] Name: BEAR FRANCISCO Rep #: [id number] : 1960 58 From: Stanford Yousif MD PCP: Sathya RUTHERFORD,Terry Heller Status: REG SDC Y Location: [place] [address] Report of Operation Date of Procedure: 06/14/18 [...] degrees. The patient was draped steriley. The Osprey Spill Control Navigation stickers and head piece were placed on the patient. The navigation was verified per protocol. Zero, 30 and 70 rigid nasal endoscopes were used throughout the entire case. The right nose was decongested with afrin pledgets. 1% lidocaine with epinephrine ([id number]) was injected into the right middle turbinate, [...] DISCHARGE INSTRUCTION Observed: 06/14/2018 Status: F Source: [place] 7:36 AM [facility] REPOSITORY [facility] Medical Records Department [address] [place] [address] Instructions for Home/Discharge Instructions 06/14/18 0734 MR#: [id number] Acct: [id number] Name: BEAR FRANCISCO Rep #: [id number] : 1960 58 From: Stanford Yousif MD PCP: Terry Mcdonnell MD, Chi Status: REG [facility] You will use the following diet at [...] 06/14/2018 Status: F Source: [place] 7:30 AM [facility] REPOSITORY Patient: BEAR FRANCISCO : 1960 (58/F) Acct Num: [id number] Phys: Benja RUTHERFORD,Stanford Unit Num: [id number] Loc: [facility] Specimen: [id number] Received: 06/14/18923 Spec Type: ETH [...] after decalcification. / AM:daja 06/14/18 TC:3 CPT: 27679 x2, 04188 x2, 37201 x2 HEADER OPERATION: Endoscopic, maxillary antrostomy, tissue [...] on file> Performed By: #### PET #### [facility] [address] [place], [address] CARDIOLOGY VISIT Observed: 06/09/2018 Status: F Source: [place] REPORT 1:33 PM [facility] REPOSITORY [facility] [place] [address] [place] [address] OFFICE VISIT Date of Service: 06/09/18 MR#: [id number] Acct: [id number] Name: BEAR FRANCISCO Rep #: [id number] : 1960 Provider: Ingris [place] Age/Sex: 58/F Location: [facility] [place] [place] Status: Signed HPI HPI Details: BEAR [...] Visit Reasons: FU Heart cath on 06/01/18\PFM Shoe Singer Required: No Accompanied by: none Is patient [...] Hyperlipemia (Chronic) Chronic sinusitis (Chronic) History of Guillain-Ottumwa syndrome (Chronic) Surgical History History of cardiac [...] Cardiac Catheterization 06/01/18 Chest X-Ray 05/27/18 06/09/18 7961 <Electronically signed by Ingris HANSEN> Date Ingris Henao Signature: Date (if applicable) CC: Terry Mcdonnell MD CBC-COMPLETE BLOOD CNT Collected: 06/01/2018 Status: F Source: [place] NO DIFF 7:51 AM [facility] REPOSITORY TYPE CODE TESTS RESULT OUT OF [...] MPV 10.6 Performed By: #### L100.0500 #### [facility] [place], [address] BASIC METABOLIC Collected: 06/01/2018 Status: F Source: [place] PROFILE (BMP) 7:51 AM [facility] REPOSITORY TYPE CODE TESTS RESULT OUT OF [...] GAP 7 Performed By: #### L500.2500 #### [facility] [address] [place], [address] PROTHROMBIN TIME W/INR Collected: 06/01/2018 Status: F Source: [place] 7:51 AM [facility] REPOSITORY TYPE CODE TESTS RESULT OUT OF RANGE REFERENCE UNITS LAB L300.4150 11.7-14.9 SECONDS Normal PROTIME 13.7 LAB L300.4200 Normal INR 1.1 Performed By: #### L300.3900, L300.4310 #### [facility] [address] [place], [address] PARTIAL THROMBOPLAST Collected: 06/01/2018 Status: F Source: [place] TIME 7:51 AM [facility] REPOSITORY TYPE CODE TESTS RESULT OUT OF RANGE REFERENCE UNITS LAB L300.4310 24.1-36.2 Seconds Normal PTT 34.0 Performed By: #### L300.3900, L300.4310 #### [facility] [address] [place], [address] CARDIOLOGY VISIT Observed: 05/27/2018 Status: F Source: [place] REPORT 3:18 PM [facility] HOSPITAL REPOSITORY [facility] [address] [place] [address] OFFICE VISIT Date of Service: 05/27/18 MR#: [id number] Acct: [id number] Name: BEAR FRANCISCO Rep #: [id number] : 1960 Provider: Ingris [place] Age/Sex: 58/F Location: [facility] [place] [place] Status: Signed HPI HPI Details: BEAR [...] Intake Visit Reasons: Update H AND P Shoe Singer Required: No Accompanied by: none Is patient [...] DAILY #30 tab 05/27/18 [Rx Confirmed 05/27/18] [facility] Medical History Ventricular ectopy (Acute) Dyspnea on exertion (Acute) Abnormal stress test (Acute) Abnormal electrocardiogram [ECG] [EKG] (Acute) Hyperlipemia (Chronic) Chronic sinusitis (Chronic) History of Guillain-Ottumwa syndrome (Chronic) Surgical History History of tubal [...] Stress Test 05/04/18 Chest X-Ray 05/27/18 05/27/18 3984 <Electronically signed by Ingris HANSEN> Date Ingris HANSEN Cosigner Signature: Date (if applicable) CC: Terry Mcdonnell MD CHEST PA AND LATERAL Observed: 05/27/2018 Status: F Source: [place] 2:55 PM [facility] REPOSITORY [facility] Imaging Services [address] [place] [address] Chest PA and Lateral MR#: [id number] Acct: [id number] Name: BEAR FRANCISCO Rep #: [id number] : 1960 F 58 From: Tae Turner MD PCP: Terry Mcdonnell MD, Chi Status: REG CLI Study: Chest PA and Lateral Date of Exam: 05/27/18 Exam# [id number] Ordering Dr: Clovis Garcia MD STUDY: X-RAY [...] CC: Clovis Garcia MD; Terry Mcdonnell MD Base Remover: Signed STRESS REPORT Observed: 05/04/2018 Status: F Source: [place] 5:57 PM [facility] REPOSITORY [facility] Cardiovascular Services [address] [place] [address] MR#: [id number] Acct: [id number] Name: BEAR FRANCISCO Rep #: [id number] : 1960 58 From: Clovis Garcia MD Primary Care: aSthya RUTHERFORD,Terry Heller Status: REG CLI Ordering Dr: [...] 90 %. This note was generated with Klatcheration software. It may contain incorrect words, spelling, and punctuation that were not noted in checking the note before signing. 05/04/18 1757 <Electronically signed by Clovis Garcia MD> Date Clovis Garcia MD CC: Clovis Garcia MD; Terry Mcdonnell MD Date Dictated: 05/04/18 154 Date Transcribed: 05/04/181545 Base Remover: PM Signed ECHO, COMPLETE W/ Observed: 05/04/2018 Status: F Source: [place] CONTRAST 5:37 PM [facility] REPOSITORY [facility] Cardiovascular Services [address] [place] [address] Echo Complete W/ Contrast 05/04/18 1042 MR#: [id number] Acct: [id number] Name: BEAR FRANCISCO Rep #: [id number] : 1960 58 From: Clovis Garcia MD Attending Dr: Clovis Garcia MD Status: REG CLI Ordering Dr: Clovis Garcia MD Date: 05/04/18 Location: [facility] Sex: F C Admitted: Reason [...] aortic root. Pericardium/Pleural No pericardial effusion. Medication [id number] given slow IV push to enhance endocardial [...] Date Dictated: 05/04/18 1042 Date Transcribed: 05/04/181735 Base Remover: Signed BASIC METABOLIC Collected: 04/27/2018 Status: F Source: [place] PROFILE (BMP) 6:29 AM [facility] REPOSITORY TYPE CODE TESTS RESULT OUT OF [...] GAP 9 Performed By: #### L500.2500 #### [facility] [address] [place], [address] CARDIOLOGY VISIT Observed: 04/21/2018 Status: F Source: [place] REPORT 5:22 PM [facility] REPOSITORY [facility] [address] [place] [address] OFFICE VISIT Date of Service: 04/21/18 MR#: [id number] Acct: [id number] Name: BEAR FRANCISCO Rep #: [id number] : 1960 Provider: Clovis Garcia MD Age/Sex: 58/F Location: [facility] Status: Signed HPI HPI Details: BEAR FRANCISCO, [...] ECG. 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 She remains very active with [...] Hyperlipemia (Chronic) Chronic sinusitis (Chronic) History of Guillain-Ottumwa syndrome (Chronic) Surgical History History of tubal [...] Hypokalemia E87.6 04/21/18 1722 <Electronically signed by Clvois Garcia MD> Date Clovis Garcia MD Cosigner Signature: Date (if applicable) CC: Stanford Yousif MD 12 LEAD EKG PERFORMED Observed: 04/21/2018 Status: F Source: [place] BY BMS 2:46 PM [facility] REPOSITORY [facility] [address] [place] [address] 12 Lead EKG performed by BMS 04/21/18 1446 MR#: [id number] Acct: [id number] Name: BEAR FRANCISCO Rep #: [id number] : 1960 58 From: Clovis Garcia MD Attending Dr: Clovis Garcia MD Status: DEP AMB Ordering Dr: Clovis Garcia MD Date: 04/21/18 Location: [facility] Sex: F C Admitted: BMS/12 Lead EKG performed by [facility] [place] [place] ECG Report Interpretation Sinus Bradycardia Subtle nonspecific ST segment abnormalityElectronically signed on 04/21/2018 at 18:05 by Clovis Garcia [employer]le[employer] Software Version 8610 04/21/18 1808 Date Clovis Garcia MD CC: Date Dictated: 04/21/181445 Date Transcribed: 04/21/181445 Base Remover: PM Signed 12 LEAD ELECTROCARDIOGRAM Observed: 04/09/2018 Status: F Source: [place] 10:51 AM [facility] REPOSITORY [facility] Cardiovascular Services [address] [place] [address] 12 Lead EKG 04/08/18 1149 MR#: [id number] Acct: [id number] Name: BEAR FRANCISCO Rep #: [id number] : 1960 58 From: Ronaldo Luciano MD Attending Dr: Stanford Yousif MD Status: PRE SDC Ordering Dr: Stanford Yousif MD Date: 04/08/18 Location: [facility] Sex: F C Admitted: Test Reason : [...] ECG Confirmed by RONALDO LUCIANO MD ([id number]), metropolitan editor CATALINA KIM ([id number]) on 04/09/2018 10:51:31 AM Referred By: Stanford Yousif Confirmed By:RONALDO LUCIANO MD 04/09/18 1051 Date Ronaldo Luciano MD CC: Stanford Yousif MD; Terry Mcdonnell MD Signed PAP IG HPV APTIMA Collected: 04/08/2018 Status: F Source: [place] ,45 3:00 PM [facility] REPOSITORY Order Comment: CYTOLOGY INFORMATION: - CLINICAL INFORMATION: ANNUAL - DATE LMP/MENOPAUSE: - COLLECTION VIAL: Thin Prep Vial - SOCIAL SCIENCE ANALYST SOURCE: CERVICAL - COLLECTION TECHNIQUE: BRUSH/SPATULA Specimen Comment: [id number] Specimen Comment: Source.............Cervix Specimen Comment: No. of [...] Normal PERFORM Comment Result Comment: Ninoska Polanco, Pasting Inspector (ASCP) LAB L7400.2575 . Normal TEST METHOD [...] 51/52/56/58/59/66/68) without differentiation. Performed at: [facility] - [facility] [id number] Shipping Receiving Manager: Christin Ward MD, Phone: [phone] Performed at: =G - [facility] [address] [id number] Shipping Receiving Manager: Christin Ward MD, Phone: [phone] Performed By: #### L7400.0280 #### [facility] (refer to report for specific site) refer to report for address and phone number EVENTS INTERN OFFICE VISIT Observed: 04/08/2018 Status: F Source: [place] REPORT 1:39 PM [facility] [address] [place] [address] OFFICE VISIT Date of Service: 04/08/18 MR#: [id number] Acct: [id number] Name: BEAR FRANCISCO Rep #: [id number] : 1960 Provider: TRAE Torres Age/Sex: 58/F Location: [facility] Status: Signed Intake Vital Signs04/08/18 Height 5 ft 4 in 04/08/18 Weight: 145 lb 04/08/18 Body Mass Index (BMI) 24.9 04/08/18 Blood Pressure 140/72 H Intake Visit Reasons: new annual Chief Complaint: NEW annual Shoe Singer Required: No Is patient in pain?: No Allergies Sulfa (Sulfonamide Antibiotics) Allergy (Verified 04/08/18 12:48) Unknown Medications Multivitamin [Multiple Vitamins] 1 ea PO DAILY 04/07/18 [History Confirmed 04/08/18] doxycycline hyclate 100 mg capsule 100 mg PO DAILY 04/08/18 [History Confirmed 04/08/18] Is last menstrual period known: No Post menopausal: Yes Patient : No : No [facility] Medical History History of Guillain-Ottumwa syndrome (Acute) Surgical History Nasal septal deviation [...] none 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 Reproductive History Questions: Metorrhagia: No, [...] alert, oriented to person, oriented to place HENNE Head: normal to inspection Neck Neck: normal [...] year, prn with problems Maria T Torres TEA BLENDER Orders Orders: Coding Level of Care Code Off vis,new,prev 40-64yrs Diagnoses Encounter for gynecological examination with abnormal finding Z01.411 Gynecological examination findings: abnormal findings PRESENT Atrophic vaginitis N95.2 04/08/18 1339 <Electronically signed by Maria T HOLLY> Date Maria T BLACKBURNC Cosigner Signature: Date (if applicable) CC: CBC-COMPLETE BLOOD CNT Collected: 04/08/2018 Status: F Source: [place] NO DIFF 11:37 AM [facility] REPOSITORY TYPE CODE TESTS RESULT OUT OF [...] MPV 10.6 Performed By: #### L100.0500 #### [facility] [address] [place], [address] BASIC METABOLIC Collected: 04/08/2018 Status: F Source: [place] PROFILE (BMP) 11:37 AM [facility] REPOSITORY TYPE CODE TESTS RESULT OUT OF [...] GAP 7 Performed By: #### L500.2500 #### [facility] [address] [place], [address] SINUS/FACIAL BONE Observed: 03/30/2018 Status: F Source: [place] 1:17 PM [facility] REPOSITORY [facility] Imaging Services [address] [place] [address] Sinus/Facial Bone MR#: [id number] Acct: [id number] Name: BEAR FRANCISCO Rep #: [id number] : 1960 F 58 From: Gallito Holley MD PCP: Sathya RUTHERFORD,Terry Heller Status: REG CLI Study: Sinus/Facial Bone Date of Exam: 03/30/18 Exam# [id number] Ordering Dr: Stanford Yousif MD STUDY: CT [...] CC: Stanford Yousif MD; Terry Mcdonnell MD Base Remover: Signed Observed: 03/03/2018 Status: F Source: [place] CULTURE, NOSE 2:10 PM [facility] REPOSITORY Gram Stain Gram Stain 3+ White Blood Cells 2+ Gram positive cocci Rare Gram negative rods Nasoph. Cult Penicillin is the drug of choice for Beta Streptococcal infections. For Penicillin allergic patients, Erythromycin may be used. ORGANISM 1: Streptococcus group C Amount Growth 3+ Performed By: #### M100.0900 #### [facility] [address] [facility] [place], [place], [address] THYROID STIM HORMONE Collected: 02/08/2018 Status: F Source: [place] (TSH) 5:19 PM [facility] REPOSITORY TYPE CODE TESTS RESULT OUT OF RANGE REFERENCE UNITS LAB L501.9520 0.358-3.74 uIU/mL Normal TSH 2.57 Performed By: #### L501.9520 #### [facility] [address] [place], [address] HEPATITIS C ANTIBODIES Collected: 02/08/2018 Status: F Source: [place] 5:19 PM [facility] REPOSITORY TYPE CODE TESTS RESULT OUT OF RANGE REFERENCE UNITS LAB L3100.0650 0.0-0.9 s/co ratio Normal HEP C AB <0.1 Result Comment: Negative: < 0.8 Indeterminate: 0.8 - 0.9 Positive: > 0.9 The CDC recommends that a positive HCV antibody result be followed up with a HCV Nucleic Acid Amplification test (401686). Performed at: [facility] [id number] Shipping Receiving Manager: Eduardo Stacy PhD, Phone: [phone] Performed By: #### L3100.0625 #### [facility] (refer to report for specific site) refer to report for address and phone number URINALYSIS, EMPLOYEE Collected: 01/29/2018 Status: F Source: [place] 6:40 AM [facility] REPOSITORY TYPE CODE TESTS RESULT OUT OF [...] ESTERASE 100 Performed By: #### L400.0100 #### [facility] [address] [place], [place], [address] CBC, EMPLOYEE Collected: 01/29/2018 Status: F Source: [place] 6:40 AM [facility] REPOSITORY TYPE CODE TESTS RESULT OUT OF [...] Lymph 2.15 Performed By: #### L100.0200 #### [facility] [address] [place], [place], [address] EMPLOYEE PROFILE Collected: 01/29/2018 Status: F Source: [place] 6:40 AM [facility] REPOSITORY TYPE CODE TESTS RESULT OUT OF [...] LDH 160 Performed By: #### L500.2900 #### [facility] [address] [place], [address] NICOTINE URINE DRUG Collected: 01/29/2018 Status: F Source: [place] SCREEN 6:40 AM [facility] REPOSITORY TYPE CODE TESTS RESULT OUT OF [...] of Nicotine. Performed By: #### L505.6240 #### [facility] [address] [place], [address] ALLERGIES ALLERGIES DATE TYPE / CODE NAME / CODE REACTION SEVERITY SOURCE 06/09/2018 Drug Sulfa Unknown Unknown [facility] Allergy/4160 (Sulfonamide Hospital 10234(SNOMED Antibiotics)/ Repository CT) [id number](RX NORM) ENCOUNTERS ENCOUNTERS ADMIT/DISCHARGE ACCOUNT ADMITTING ENCOUNTER LOCATION SOURCE NUMBER CLASS 06/14/2018/ [id number] Ambulatory [facility] 9 8 [facility] ing:SDCRoom: Repository AC19 06/09/2018/ [id number] Ambulatory BMSBuilding:B [place] 9 1 [facility] Repository 06/02/2018 [id number] Ambulatory BMSBuilding:B [place] 6 [facility] Repository 06/01/2018 [id number] Ambulatory BMSBuilding:B [place] 0 [facility] Repository 06/01/2018/ [id number] [place]ulatory [place] [facility]CL[facility] Repository 06/01/2018/ [id number] Ambulatory BMSBuilding:W [place] 9 4 [facility] Hospital Repository 05/27/2018/ [id number] Ambulatory BMSBuilding:B [place] 9 9 [facility] Repository 05/27/2018 [id number] Ambulatory [place] 1 [facility] ing:RAD Repository 05/12/2018 [id number] Ambulatory [place] 1 [facility] ing:SDC Repository 05/04/2018 [id number] Ambulatory BMSBuilding:W [place] 8 [facility] Hospital Repository 05/04/2018 [id number] [place]ulatory [place] 3 [facility] ing:[facility] Repository 04/27/2018 [id number] Ambulatory [place] 1 [facility] ing:LAB Repository 04/21/2018/ [id number] Ambulatory BMSBuilding:B [place] 8 7 [facility] Repository 04/19/2018 [id number] Ambulatory BMSBuilding:B [place] 2 [facility] Repository 04/08/2018 [id number] Ambulatory [place] 0 [facility] ing:OPBI Repository 04/08/2018/ [id number] Ambulatory BMSBuilding:B [place] 8 2 [facility] Repository 04/08/2018 [id number] Ambulatory BMSBuilding:W [place] 9 [facility] Hospital Repository 03/30/2018 [id number] Ambulatory [place] 5 [facility] ing:CT Repository 03/03/2018 [id number] Ambulatory [place] 1 [facility] ing:LABSPEC Repository 02/08/2018 [id number] [place]ulatory [place] 8 [facility] ing:LAB Repository 01/29/2018 [id number] [place]ulatory [place] 4 [facility] ing:EMPH Repository PAYERS PAYERS ENCOUNTER GUARANTOR PAYER SUBSCRIBER SOURCE 06/14/2018 BEAR Black Primary Insurance:[facility] BEAR Black [place] [id number] [facility] [place]LFORDDOB: [facility] [id number] [place]ille [id number]: Number: Repository [id number] (HP) Date:5877-86-65[address] [address]JWSTZRUVM, [place] [address]LX: CHECK WEBSITE 06/14/2018 Secondary NOT GIVENUNK [place] Insurance:SELF PAY [facility] Number: Effective Repository Date:2018-06-03 06/09/2018 BEAR Black Primary Insurance:[facility] BEAR Black [place] [id number] [facility] WOHLFORDDOB: [facility] 0852-09-65YOHStephanie Ville [id number]: Number: Repository [id number] (HP) Date:4960-50-73TF [address] [address]BSVDDCNNCJesse [place] [address]WP: CHECK WEBSITE 06/09/2018 Secondary NOT GIVENUNK [place] Insurance:SELF PAY [facility] Number: Effective Repository Date:2018-06-09 06/02/2018 BEAR Black Primary Insurance:[facility] BEAR Black [place] [id number] [facility] [place]OHLFORDDOB: [facility] 4711-66-30SQHRehabilitation Hospital of [facility] [place] [address]Wyp: Number: Repository [id number] (HP) Date:7566-21-61IB [address] [address]PYQWFIIXP, [place] [address]TH: CHECK WEBSITE 06/02/2018 Secondary NOT GIVENUNK [place] Insurance:SELF PAY [facility] Number: Effective Repository Date:2018-06-02 06/01/2018 BEAR K Primary Insurance:[facility] BEAR Black [place] [id number] [facility] [place]OHLFORDDOB: [facility] 9734-12-29FBKRehabilitation Hospital of [facility] [place] [address]Tos: Number: Repository [id number] (HP) Date:9125-85-15[address] [address]VAIOFMSLP, [place] [address]MT: CHECK WEBSITE 06/01/2018 Secondary NOT GIVENUNK [place] Insurance:SELF PAY [facility] Number: Effective Repository Date:2018-06-01 06/01/2018 BEAR Black Primary Insurance:[facility] BEAR Black [place] [id number] [facility] [place]LF[place]DOB: [facility] 5071-70-99RVCRehabilitation Hospital of [place] [address]Xyr: Number: Repository [id number] (HP) Date:8787-41-18AA [address] [address]SGQORAYHJ, [place] [address]VT: CHECK WEBSITE 06/01/2018 Secondary NOT GIVENUNK [place] Insurance:SELF PAY [facility] Number: Effective Repository Date:2018-05-06 06/01/2018 BEAR Wayne Primary Insurance:[facility] BEAR Black [place] [id number] [facility] [place]DOB: [facility] 5934-28-51ALURehabilitation Hospital of [facility] [place] [address]Yyk: Number: Repository [id number] (HP) Date:5862-27-47HM [address] [address]DVGPXRKEC, [place] [address]AO: CHECK WEBSITE 06/01/2018 Secondary NOT GIVENUNK [place] Insurance:SELF PAY [facility] Number: Effective Repository Date:2018-06-01 05/27/2018 BEAR K Primary Insurance:[facility] BEAR Black [place] [id number] [facility] [place]DOB: [facility] 3036-21-51FRNRehabilitation Hospital of [facility] [place] [address]Xca: Number: Repository [id number] (HP) Date:6204-17-61DO [address] [address]EZVYSQXMV, [place] [address]HO: CHECK WEBSITE 05/27/2018 Secondary NOT GIVENUNK [place] Insurance:SELF PAY [facility] Number: Effective Repository Date:2018-05-27 05/27/2018 BEAR K Primary Insurance:[facility] BEAR Black [place] [id number] [facility] [place]DOB: [facility] SERVICESPolicy [id number] Hospital of [place] [address]Iyu: Number: Repository [id number] (HP) Date:0375-91-00AC [address] [address]DXTDMDPYZ, [place] [address]XU: CHECK WEBSITE 05/27/2018 Secondary NOT GIVENUNK [place] Insurance:SELF PAY [facility] Number: Effective Repository Date:2018-05-27 05/12/2018 BEAR K Primary Insurance:[facility] BEAR Wayne [place] [id number] [facility] [place]LF[place]DOB: [facility] 9442-72-02IHZRehabilitation Hospital of [place] [address]Bmn: Number: Repository [id number] (HP) Date:3136-98-60QY [address] [address]FKXPJICOO, [place] [address]WZ: CHECK WEBSITE 05/12/2018 Secondary NOT GIVENUNK [place] Insurance:SELF PAY [facility] Number: Effective Repository Date:2018-04-01 05/04/2018 BEAR K Primary Insurance:[facility] BEAR K [place] [id number] [facility] W[place]LF[place]DOB: [facility] 5222-29-11SZHRehabilitation Hospital of [facility] [place] [address]Bbw: Number: Repository [id number] (HP) Date:6325-90-99UT [address] [address]WNUAKVUME, [place] [address]FD: CHECK WEBSITE 05/04/2018 Secondary NOT GIVENUNK [place] Insurance:SELF PAY [facility] Number: Effective Repository Date:2018-05-04 05/04/2018 BEAR K Primary Insurance:[facility] BEAR Wayne [place] [id number] [facility] [place]LF[place]DOB: [facility] 8131-82-09TYIRehabilitation Hospital of [place] [address]Vhi: Number: Repository [id number] (HP) Date:7408-70-14GM [address] [address]AHQCCTXKM, [place] [address]MQ: CHECK WEBSITE 05/04/2018 Secondary NOT GIVENUNK [place] Insurance:SELF PAY [facility] Number: Effective Repository Date:2018-04-21 04/27/2018 BEAR Black Primary Insurance:[facility] BEAR Black [place] [id number] [facility] [place]LFORDDOB: [facility] 6986-39-91NBJRehabilitation Hospital of [place] [address]Uij: Number: Repository [id number] (HP) Date:3238-03-40IE [address] [address]NJMAXNFES, [place] [address]ZC: CHECK WEBSITE 04/27/2018 Secondary NOT GIVENUNK [place] Insurance:SELF PAY [facility] Number: Effective Repository Date:2018-04-27 04/21/2018 BEAR Black Primary Insurance:[facility] BEAR Black [place] [id number] [facility] [place]LF[place]DOB: [facility] [id number] Hospital of [place] [address]Xix: Number: Repository [id number] (HP) Date:3447-52-83SN [address] [address]OHILWMKXM, [place] [address]LA: CHECK WEBSITE 04/21/2018 Secondary NOT GIVENUNK [place] Insurance:SELF PAY [facility] Number: Effective Repository Date:2018-04-21 04/19/2018 BEAR Black Primary Insurance:[facility] BEAR Black [place] [id number] [facility] [place]DOB: [facility] 8956-37-01FAZRehabilitation Hospital of [place] [address]Vke: Number: Repository [id number] (HP) Date:3211-52-31FH [address] [address]GDTPHWIHG, [place] [address]EN: CHECK WEBSITE 04/19/2018 Secondary NOT GIVENUNK [place] Insurance:SELF PAY [facility] Number: Effective Repository Date:2018-04-19 04/08/2018 BEAR Black Primary Insurance:[facility] BEAR Black [place] [id number] [facility] [place]LFORDDOB: [facility] 0204-52-16DAARehabilitation Hospital of [place] [address]Nfb: Number: Repository [id number] (HP) Date:6670-84-56LF [address] [address]QKJCZELQC, [place] [address]NW: CHECK WEBSITE 04/08/2018 Secondary NOT GIVENUNK [place] Insurance:SELF PAY [facility] Number: Effective Repository Date:2018-04-08 04/08/2018 BEAR Black Primary Insurance:[facility] BEAR Black [place] [id number] [facility] [place]ORDDOB: [facility] 1686-47-66GQNRehabilitation Hospital of [place] [address]Xuf: Number: Repository [id number] (HP) Date:5600-44-06WP [address] [address]XNEUKXLNJ, [place] [address]UI: CHECK WEBSITE 04/08/2018 Secondary NOT GIVENUNK [place] Insurance:SELF PAY [facility] Number: Effective Repository Date:2018-04-08 04/08/2018 BEAR Black Primary Insurance:[facility] BEAR Black [place] [id number] [facility] [place]ORDDOB: [facility] 8121-82-67SJZRehabilitation Hospital of [place] [address]Aje: Number: Repository [id number] (HP) Date:4806-00-65WI [address] [address]SMSLUSMWU, [place] [address]GH: CHECK WEBSITE 04/08/2018 Secondary NOT GIVENUNK [place] Insurance:SELF PAY [facility] Number: Effective Repository Date:2018-04-08 03/30/2018 BEAR Black Primary Insurance:[facility] BEAR Black [place] [id number] [facility] [place]LFORDDOB: [facility] 1303-40-67EYWRehabilitation Hospital of [place] [address]Vnq: Number: Repository [id number] (HP) Date:1662-62-77TX [address] [address]XIAYYOXGA, [place] [address]YH: CHECK WEBSITE 03/30/2018 Secondary NOT GIVENUNK [place] Insurance:SELF PAY [facility] Number: Effective Repository Date:2018-03-19 03/03/2018 BEAR Black Primary Insurance:[facility] BEAR Black [place] [id number] [facility]: [facility] 7830-85-50SRARehabilitation Hospital [facility] [place] [address]Jbv: Number: Repository [id number] (HP) Date:5357-06-57IT [address] [address]KODXDRISH, [place] [address]DR: CHECK WEBSITE 03/03/2018 Secondary NOT GIVENUNK [place] Insurance:SELF PAY [facility] Number: Effective Repository Date:2018-03-03 02/08/2018 BEAR Black Primary Insurance:[facility] BEAR Black [place] [id number] [facility] SPR[facility]SDOB: [facility] 5585-36-25DVRRehabilitation Hospital of [place] [address]Pgo: Number: Repository [id number] () Date:2565-08-60VQ [address] [address]ONOBURUPL, [place] [address]PZ: CHECK WEBSITE 02/08/2018 Secondary NOT GIVENUNK [place] Insurance:SELF PAY [facility] Number: Effective Repository Date:2018-02-08 01/29/2018 Primary NOT GIVENUNK [place] Insurance:SELF PAY [facility] Number: Effective Repository Date:2018-01-29
== END 2018-06-14 10:15 | disposition home or self-care (01) ==
LOC: SDC 05:55 → AC 05:56
PROVIDERS: Family Provider Family Medicine Geriatric Medicine; PCP Family Medicine Geriatric Medicine; Referring Provider Otolaryngology; Visit Provider Otolaryngology
PROC: (CPT 31255; principal; 2018-06-14 07:00)
DX: J32.8 Other chronic sinusitis (principal); J33.0 Polyp of nasal cavity; E78.00 Pure hypercholesterolemia, unspecified; I10 Essential (primary) hypertension; Z79.899 Other long term (current) drug therapy; Z87.891 Personal history of nicotine dependence
CPT/HCPCS: 00160; 31255; 31267; 87102; 87206; 88304; 88305; 88311; 88312; J7120; J2405

== ENCOUNTER → 2018-08-30 06:30 | Outpatient (CLI) | payer OTHER, SELFPAY ==
[2018-08-30 08:13] LABS: AST(SGOT) 20 U/L (15-37); Alanine Aminotransfer ALT/SGPT 31 U/L (13-56); Albumin, Serum 3.7 g/dL (3.2-5.0); Alkaline Phosphatase 72 U/L (45-117); Bilirubin, Direct 0.13 mg/dL (0.00-0.30); Cholesterol 183 mg/dL (200); Globulin 3.6 g/dL (2.2-4.2); High Density Lipoprotein 71 mg/dL; Protein, Total 7.3 g/dL (6.4-8.2); Triglycerides 142 mg/dL; Very Low Density Lipoprotein 28 mg/dL (5-40)
== END ==
PROVIDERS: Family Provider Family Medicine Geriatric Medicine; PCP Family Medicine Geriatric Medicine; Referring Provider Physician Assistant Medical; Visit Provider Physician Assistant Medical
DX: E78.5 Hyperlipidemia, unspecified (principal); I49.3 Ventricular premature depolarization
CPT/HCPCS: 36415; 80061; 80076

== ENCOUNTER → 2019-02-28 15:58 | Outpatient (CLI) | payer OTHER, SELFPAY ==
[2019-02-28 16:39] LABS: Absolute Lymphocyte Count 2.58 X10^3/uL (0.83-4.51); Absolute Neutrophil Count 2.7 X10^3/uL (2.0-7.7); Basophil# 0.06 X10^3/uL; Eosinophil# 0.16 X10^3/uL; Eosinophils% 2.6 % (0-5); Hematocrit 37.8 % (37-47); Lymphocyte # 2.58 X10^3/ul (4.0); Lymphocyte % 42.6 % (19-41); Mean Corp Hgb Conc 31.7 g/dL (32-36); Mean Corpuscular Hgb 29.4 pg (27.0-32.0); Mean Corpuscular Volume 92.6 fL (81-99); Mean Platelet Vol. 12.1 fl (6.2-12.0); Monocyte# 0.55 X10^3/uL; Monocyte% 9.1 % (0-10); NRBC Flagged by Analyzer 0 % (0-5); Neutrophil # 2.69 X10^3/uL (2.7-7.7); Neutrophil % 44.5 % (47-70); Platelet Count 263 K/mm3 (150-450); RBC Distribution Width CV 12.4 % (11.6-14.6); Red Blood Count 4.08 M/mm3 (4.2-5.4); White Blood Count 6.1 K/mm3 (4.4-11.0)
[2019-02-28 16:59] LABS: ALB/GLOB Ratio 1.1 RATIO (0.9-2.4); AST(SGOT) 30 U/L (15-37); Alanine Aminotransfer ALT/SGPT 45 U/L (13-56); Albumin, Serum 3.9 g/dL (3.2-5.0); Alkaline Phosphatase 84 U/L (45-117); Anion Gap 9 (5-15); BUN 12 mg/dL (7-18); BUN/Creat Ratio 13.9 RATIO (10-20); Calcium,Total 8.7 mg/dL (8.5-10.1); Chloride 107 mmol/L (98-107); Creatinine, Serum 0.86 mg/dL (0.55-1.02); EST Glomerular Filtration Rate 71 mL/min (>60); Est Glom Filt Rate - Afr Amer 86 mL/min (>60); Globulin 3.7 g/dL (2.2-4.2); Glucose 94 mg/dL (74-106); Protein, Total 7.6 g/dL (6.4-8.2); Sodium Level 144 mmol/L (136-145); Thyroid Stim Hormone (TSH) 2.59 uIU/mL (0.358-3.74)
== END ==
PROVIDERS: Family Provider Family Medicine Geriatric Medicine; PCP Family Medicine Geriatric Medicine; Visit Provider Family Medicine Geriatric Medicine
DX: R53.83 Other fatigue (principal)
CPT/HCPCS: 36415; 80053; 84443; 85025

== ENCOUNTER → 2019-04-18 07:44 | Outpatient (CLI) | payer OTHER, SELFPAY ==
--- NOTE | 2019-04-18 07:48 | BI_ITS ---
MAMMOGRAPHY - BILATERAL SCREENING - CAD and REED IMAGES REASON FOR EXAM: Female, 59 years old. Routine annual screening examination. PERTINENT HISTORY: Non-contributory. TECHNIQUE: Digital examination. Mediolateral oblique (MLO) and craniocaudad (CC) views of both breasts were obtained. CAD: CAD was performed on this study. Reed images were reviewed. COMPARISON: None. FINDINGS: Breast Composition: There are scattered areas of fibroglandular density. There are no suspicious masses, suspicious cluster of microcalcifications, architectural distortion or secondary sign of malignancy identified in either breast. Focal fibroglandular densities are noted bilaterally. Benign round calcifications are seen in both breasts. No other significant abnormalities are identified. CAD and Reed were reviewed. BI/SCREEN MAMM (CAD) W/REED BILAT IMPRESSION: Stable bilateral screening mammogram. ASSESSMENT CATEGORY: BIRADS Category 2: Benign. A letter regarding these results will be sent to the patient by the facility within 30 days. FOLLOW UP RECOMMENDATION: Yearly follow up mammogram recommended. (A) Approximately 10% of breast cancers are not detected by mammography. A normal mammogram should not delay biopsy of a clinically suspicious abnormality. [id number] Electronically Signed: Franny Kerr DO at 10:21 EST Tel , Service support ,
== END ==
PROVIDERS: Family Provider Family Medicine Geriatric Medicine; PCP Family Medicine Geriatric Medicine; Referring Provider Family Medicine Geriatric Medicine; Visit Provider Family Medicine Geriatric Medicine
DX: Z12.31 Encounter for screening mammogram for malignant neoplasm of breast (principal)
CPT/HCPCS: 77063; 77067

== ENCOUNTER → 2019-06-21 06:20 | Outpatient (CLI) | payer OTHER, SELFPAY ==
[2019-06-20 13:05] VITALS: BMI 27.6
[2019-06-21 08:16] LABS: AST(SGOT) 13 U/L (15-37); Alanine Aminotransfer ALT/SGPT 34 U/L (13-56); Albumin, Serum 3.9 g/dL (3.2-5.0); Alkaline Phosphatase 72 U/L (45-117); Cholesterol 150 mg/dL (200); Globulin 3.8 g/dL (2.2-4.2); High Density Lipoprotein 50 mg/dL; Protein, Total 7.7 g/dL (6.4-8.2); Triglycerides 104 mg/dL; Very Low Density Lipoprotein 21 mg/dL (5-40)
== END ==
PROVIDERS: PCP Family Medicine Geriatric Medicine; Visit Provider Internal Medicine Cardiovascular Disease
DX: E78.00 Pure hypercholesterolemia, unspecified (principal)
CPT/HCPCS: 36415; 80061; 80076

== ENCOUNTER 2019-10-30 10:07 | Emergency (ER) | payer OTHER, SELFPAY ==
[2019-06-20 13:05] VITALS: BMI 27.6
[2019-10-30 10:10] VITALS: BP 153/81; PULSE 78; RESP 17; TEMP 36.5; O2SAT 98; BMI 27.3
--- NOTE | 2019-10-30 10:21 | ED.DCSUM_ITS ---
History of Present Illness Informant: Patient, Family Onset: Today Context: Gradual Onset Timing: Continuous Quality: swelling Location: both hands Current Severity: Severe Maximum Severity: Severe Worsened by: nothing Relieved by: nothing Associated Symptoms: big bites, itching Narrative: 59-year-old female with a history of hypertension hyperlipidemia presents to the emergency department with bilateral hand and forearm swelling and multiple bug bites. Patient states that she was outside cutting her grass yesterday and sustained several bug bites to her back. She got up this morning to go outside and had several more bug bites on both hands and then over the past couple of hours has had progressively worsening swelling of both hands and forearms. She has not had any shortness of breath, feeling as if her throat is closing, trouble breathing or swallowing or any difficulty opening and closing her mouth. She has not had a rash. No shortness of breath or chest pain. She has not been lightheaded or dizzy. No vomiting or diarrhea. She has not yet taken anything for the symptoms. She denies a history of similar symptoms. Only allergy is to Bactrim Prior similar symptoms: No Recent Illness/Hospitalization: No <Kostas Penny - Last Filed: 10/30/19 10:33> <José Manuel Mckeon - Last Filed: 10/30/19 16:18> Chief Complaint: Allergic Reaction Past Medical History Prior records reviewed: Yes Past Medical History: - - Hypertension and hyperlipidemia Surgical History: no surgical history Lives: With Family Smoking Status: Former smoker Alcohol: Occasional Drugs: None <Kostas Penny - Last Filed: 10/30/19 10:33> <José Manuel Mckeon - Last Filed: 10/30/19 16:18> - Allergies and Home Meds Allergies/Adverse Reactions: Allergies Sulfa (Sulfonamide Antibiotics) Allergy (Verified 10/30/19 10:09) Unknown Primary Care Physician: Terry Mcdonnell Chi, MD [Primary Care Provider] - Review of Systems All systems negative except as indicated General: Denies: Chills, Fever, Sweats Eyes: Denies: Visual changes - bilaterally, Diplopia ENT: Denies: Bilateral ear pain, Left ear pain, Right ear pain, Rhinorrhea, Sore throat Cardiovascular: Denies: Chest pain, Palpitations Respiratory: Denies: Dyspnea, Cough, Sputum, Dyspnea on exertion, Orthopnea, Paroxysmal nocturnal dyspnea Gastrointestinal: Denies: Abdominal pain, Nausea, Vomiting, Diarrhea, Melena, Hematochezia Genitourinary: Denies: Dysuria, Hematuria, Frequency Musculoskeletal: Reports: - - Swelling of both hands and forearms. Denies: Back pain, Extremity Pain Skin: Reports: - - Multiple bug bites. Denies: Rash, Abscess, Abrasions, Wounds Neurological: Denies: Headache, Weakness, Numbness Allergy: Denies: Uticaria, Swelling of the mouth, Swelling of the tongue <Kostas Penny - Last Filed: 10/30/19 10:33> Physical Exam Vital Signs/Narrative: Vital Signs Temp Pulse Resp BP Pulse Ox 10/30/19 10:10 97.7 F L 78 17 153/81 H 98 Inital Vital Signs reviewed: Yes General: Well nourished, Well developed, No Acute Distress Head: Normocephalic, Atraumatic Eyes: Perrl, EOMI ENT: Moist mucous membranes, No rhinorrhea, - - Normal posterior oropharynx. No swelling. No edema. No trismus drooling stridor or wheezing. Voice normal. Neck: Supple, Nontender Cardiovascular: Regular rate, Regular rhythm, No murmurs Respiratory: No distress, CTA bilaterally, Chest nontender Abdomen: Soft, Nontender, Nondistended, Normal bowel sounds Back: Nontender, Normal Inspection Extremities: Nontender, No edema, Edema - Bilateral edema of both hands. Normal capillary refill sensation all 10 fingers. Normal radial pulse. Normal range of motion actively of all 10 fingers and of both wrists. No rash. No lymphatic streaking. Compartments are soft. Skin: Normal color, No rash, - - 3 large bug bites to mid back. No signs of infection or abscess. No rash. 1 large bug bite to left tricep. No sign of infection. Multiple small bug bites to the dorsum of both hands with significant hand edema bilaterally that is symmetrical Neurological: Alert, Oriented x3, Cranial nerves II-XII grossly intact, Normal Strength, Normal Sensation Psychological: Normal affect, Normal Mood <Kostas Penny - Last Filed: 10/30/19 10:33> Diagnostic/Tx/Re-eval - Medical Decision Making Patient presents with multiple bug bites and edema to both hands. She has no signs or symptoms that would meet criteria for diagnosis of acute anaphylaxis. Vital signs are stable. We will treat with prednisone Pepcid and Benadryl. Wi ll prescribe all 3 as well. Discussed supportive care and return precautions. Advised to have a follow-up with her doctor in the next 2 to 3 days or return for worsening symptoms which were discussed. <Kostas Penny - Last Filed: 10/30/19 10:33> - Medical Decision Making Patient was seen with me. I did a [id number] examination with the patient. Patient presents with bilateral hand swelling that began last night. Patient states she was bitten by several black flies last night while she was mowing her yard. Patient states the swelling became worse today. Patient also noted some hives on her back from previous bug bites. Patient denies any difficulty breathing or difficulty swallowing. Patient denies any fevers or chills. Vital signs are stable. Patient is afebrile. Patient is in no acute distress. Musculoskeletal exam reveals edema and mild tenderness over the hands and distal forearms bilaterally. There is no deformity. There is no ecchymosis. Range of motion was slightly limited in all motions of the fingers and wrists bilaterally secondary to edema. Sensation was intact to light touch in all digits. Capillary refill was less than 2 seconds in all digits. Radial pulses are equal bilaterally. There are some urticaria noted on her back. There are no vesicles or pustules. There are no petechia noted. There is no discharge or drainage. Oral mucosa is pink and moist. Oropharynx is clear. Airway is patent. There are no mucosal lesions. Patient was given prednisone, Pepcid, and Benadryl here. Patient was given prescriptions for the same. Patient was instructed to follow-up with her primary care physician in 2 to 3 days for further evaluation. Patient was instructed to return if worse in any way. Patient understood and was agreeable with the plan. All questions were answered. <José Manuel Mckeon - Last Filed: 10/30/19 16:18> ED Disposition <Kostas Penny - Last Filed: 10/30/19 10:33> <José Manuel Mckeon - Last Filed: 10/30/19 16:18> - Plan for ED Patient: Disposition: Home or Assisted Living Diagnosis: Bug bite without infection, Edema of hand, HTN (hypertension), Hyperlipemia Instructions: ED BEE STING General Allergic Rxn, ED Allergic Reaction Local Other Prescriptions: Prednisone [Deltasone] 40 mg PO DAILY #10 tab Prescription Printed Famotidine [Pepcid] 20 mg PO BID #28 tab Prescription Printed hydrOXYzine pamoate capsule [Vistaril] 50 mg PO TID PRN PRN #30 cap PRN Reason: Anxiety Prescription Printed Referrals: Terry Mcdonnell Chi, MD [Primary Care Provider] -
[2019-10-30] MEDS: Famotidine 20 MG Tablet 40 MG PO (10:34)
[2019-10-30] MEDS: predniSONE 20 MG Tablet 60 MG PO (10:34)
[2019-10-30] MEDS: DiphenhydrAMINE 25 MG Capsule 50 MG PO (10:34)
== END 2019-10-30 10:52 | disposition home or self-care (01) ==
LOC: ED 10:43
PROVIDERS: Emergency Provider Physician Assistant Medical; PCP Family Medicine Geriatric Medicine
DX: S60.562A Insect bite (nonvenomous) of left hand, initial encounter (principal); S60.561A Insect bite (nonvenomous) of right hand, initial encounter; S20.469A Insect bite (nonvenomous) of unspecified back wall of thorax, initial encounter; W57.XXXA Bitten or stung by nonvenomous insect and other nonvenomous arthropods, initial encounter; Y93.9 Activity, unspecified; Y92.9 Unspecified place or not applicable; I10 Essential (primary) hypertension; E78.5 Hyperlipidemia, unspecified; Z79.82 Long term (current) use of aspirin; Z79.899 Other long term (current) drug therapy; Z87.891 Personal history of nicotine dependence
CPT/HCPCS: 99283

== ENCOUNTER → 2023-03-26 | Outpatient (CLI) | payer OTHER, SELFPAY ==
--- NOTE | 2023-03-26 13:02 | BI_ITS ---
MAMMOGRAPHY - BILATERAL SCREENING REASON FOR EXAM: Female, 63 years old. Routine annual screening examination. PERTINENT HISTORY: Sister with breast cancer. TECHNIQUE: Digital bilateral breast reed (3D mammographic acquisition) in the CC and MLO projections. 2-D mediolateral oblique (MLO) and craniocaudad (CC) views of both breasts were obtained. CAD: Full Field Digital Mammography with Computer Added Detection was performed. COMPARISON: Comparison is made with prior examination dated April 18, 2019. FINDINGS: Breast Composition: The breasts are heterogeneously dense, which may obscure small masses. There are no dominant masses or suspicious calcifications. Stable small benign-appearing bilateral axillary lymph nodes. Stable densely calcified nodule in the deep slightly upper medial aspect of the right breast. No other significant abnormalities are identified. There has been no significant change since the prior study. BI/SCRN MAMM (CAD)W/REED BILAT IMPRESSION: Stable bilateral screening mammogram. Yearly follow-up mammogram recommended. (A) ASSESSMENT CATEGORY: BIRADS Category 2: Benign. A letter regarding these results will be sent to the patient by the facility within 30 days. Approximately 10% of breast cancers are not detected by mammography. A normal mammogram should not delay biopsy of a clinically suspicious abnormality. [id number] Electronically Signed: Mor Avina MD at 13:55 EDT ,
--- NOTE | 2023-03-26 13:05 | BD_ITS ---
STUDY: DUAL ENERGY X-RAY ABSORPTIOMETRY / DXA REASON FOR EXAM: Female, 63 years old. [id number] TECHNIQUE: Bone Mineral Density (BMD) measurements of lumbar spine and bilateral hips were obtained. COMPARISON: None. FINDINGS: Lumbar Spine (L1-L4): g/cm2 (0.939) / T-score (-1.0) / Z-score (0.8) Findings are suggestive of normal bone density with a low fracture risk. Left Femur Total: g/cm2 (0.936) / T-score (0.0) / Z-score (1.2) Left Femoral Neck: g/cm2 (0.693) / T-score (-1.4) / Z-score (0.1) Right Femur Total: g/cm2 (0.975) / T-score (0.3) / Z-score (1.5) Right Femoral Neck: g/cm2 (0.726) / T-score (-1.1) / Z-score (0.4) BD/Dexa Bone Density Study IMPRESSION: The patient is considered osteopenic as outlined below according to World [employer] Organization (WHO) criteria with a low fracture risk. Reference Information: The T-score is the number of standard deviations above or below the standard which is normal for young adults at their peak bone mineral density. The World Health Organization (WHO) interprets the T-scores as follows: Above -1 Normal bone density Between -1 and -2.5 Osteopenia Equal to / or below -2.5 Osteoporosis As a practical clinical guideline, osteopenia may be graded as follows: Mild -1 through -1.5 Moderate -1.6 through -2.0 Severe -2.1 through -2.4 The Z-score is the number of standard deviations above or below age-matched controls. A Z-score of less than -1.5 would be considered abnormal. References: 1. NIH Osteoporosis and Related Bone Diseases www osteo.org 2. International Society for Clinical Densitometry www iscd.org 3. National Osteoporosis Foundation www nof.org Electronically Signed: Mor Avina MD at 13:30 EDT ,
== END | disposition home or self-care (01) ==
LOC: OPBD 12:59
PROVIDERS: PCP Family Medicine; Referring Provider Family Medicine; Visit Provider Family Medicine
DX: Z00.00 Encounter for general adult medical examination without abnormal findings (principal); Z12.31 Encounter for screening mammogram for malignant neoplasm of breast; Z80.3 Family history of malignant neoplasm of breast; Z78.0 Asymptomatic menopausal state
CPT/HCPCS: 77063; 77067; 77080

== ENCOUNTER → 2023-04-24 | Outpatient (CLI) | payer OTHER, SELFPAY ==
[2023-04-24 07:45] LABS: AST(SGOT) 21 U/L (15-37); Alanine Aminotransfer ALT/SGPT 43 U/L (13-56); Albumin, Serum 3.8 g/dL (3.2-5.0); Alkaline Phosphatase 70 U/L (45-117); Anion Gap 5 (5-15); BUN 10 mg/dL (7-18); BUN/Creat Ratio 13.1 RATIO (10-20); Calcium,Total 9.1 mg/dL (8.5-10.1); Chloride 108 mmol/L (98-107); Cholesterol 198 mg/dL (200); Creatinine, Serum 0.76 mg/dL (0.55-1.02); EST Glomerular Filtration Rate 81 mL/min (>60); Est Glom Filt Rate - Afr Amer 98 mL/min (>60); Globulin 3.8 g/dL (2.2-4.2); Glucose 100 mg/dL (74-106); High Density Lipoprotein 61 mg/dL; Potassium 3.6 mmol/L (3.5-5.1); Protein, Total 7.6 g/dL (6.4-8.2); Sodium Level 140 mmol/L (136-145); Triglycerides 213 mg/dL; Very Low Density Lipoprotein 43 mg/dL (5-40)
== END | disposition home or self-care (01) ==
PROVIDERS: PCP Family Medicine; Referring Provider Family Medicine; Visit Provider Family Medicine
DX: E78.5 Hyperlipidemia, unspecified (principal)
CPT/HCPCS: 36415; 80053; 80061

== ENCOUNTER → 2023-07-23 | Outpatient (CLI) | payer OTHER, SELFPAY ==
--- NOTE | 2023-07-23 | LES_PTH ---
PATHOLOGY RESULTS PATIENT: BEAR FRANCISCO [facility][id number] AGE/SX: 63/F ROOM: RE07/23/[address]: Dr. Clovis Barksdale MD : 1960 BED: DIS: 07/23/2023 SPEC #: [id number] RECD: 07/24/23 06:56 STATUS: JO ANN HAHN #: [id number] LAUREL: 07/23/23 00:[address]: Clovis Barksdale DEPT: SURGICAL PATHOLOGY RECD BY: Uzma Mccormick ENTERED: 07/24/23 06:59 SP TYPE: Lesion Tissues: Skin of axilla, NOS Procedures: Surgery Specimen Level IV HEADER OPERATION: Elliptical excision biopsy right axilla PRE-OP DIAGNOSIS: Neoplasm, nonhealing lesion TISSUE SUBMITTED: 3.0 x 2.0 cm oval neoplasm (skin) right axilla MICROSCOPIC DIAGNOSIS Skin lesion of right axilla, biopsy: Basal cell carcinoma, superficial, nodular and focally ulcerated. See comment. AM:daja 07/27/2023 COMMENT The lesion appears to have been completely excised in the planes examined. Case has been reviewed in consultation with Dr. Calles who concurs with the above diagnosis. IDC:[id number] MICROSCOPIC DESCRIPTION Slides are reviewed. GROSS DESCRIPTION Received is one container labeled with the patient's name and not further designated. The specimen consists of an ellipse of light jiménez skin measuring 2.8 x 1.7 x 0.2 cm. The specimen is inked, serially sectioned and totally submitted in two cassettes. / AM:daja 07/24/2023 TC:0 CPT: 72398
== END | disposition home or self-care (01) ==
PROVIDERS: PCP Family Medicine; Referring Provider Family Medicine; Visit Provider Family Medicine
DX: D49.2 Neoplasm of unspecified behavior of bone, soft tissue, and skin (principal)
CPT/HCPCS: 88305

== ENCOUNTER → 2024-03-28 | Outpatient (CLI) | payer MEDICARE, SELFPAY ==
--- NOTE | 2024-03-28 12:28 | BI_ITS ---
MAMMOGRAPHY - BILATERAL SCREENING REASON FOR EXAM: Female, 64 years old. Routine annual screening examination. PERTINENT HISTORY: Sister with breast cancer. TECHNIQUE: Digital bilateral breast reed (3D mammographic acquisition) in the CC and MLO projections. 2-D mediolateral oblique (MLO) and craniocaudad (CC) views of both breasts were obtained. CAD: Full Field Digital Mammography with Computer Added Detection was performed. COMPARISON: Comparison is made with prior study dated March 26, 2023 and April 18, 2019. FINDINGS: Breast Composition: The breasts are heterogeneously dense, which may obscure small masses. There are no dominant masses or suspicious calcifications. Stable bilateral fat-containing axillary lymph nodes. No other significant abnormalities are identified. There has been no significant change since the prior study. BI/SCRN MAMM (CAD)W/REED BILAT IMPRESSION: Stable bilateral screening mammogram. Yearly follow-up mammogram recommended. (A) ASSESSMENT CATEGORY: BIRADS Category 2: Benign. A letter regarding these results will be sent to the patient by the facility within 30 days. Approximately 10% of breast cancers are not detected by mammography. A normal mammogram should not delay biopsy of a clinically suspicious abnormality. [id number] Electronically Signed: Mor Avina MD at 12:58 EST ,
--- OUTSIDE RECORDS SUMMARY | 2024-03-28 14:18 | XMS RPT_ITS | CCD ---
Author Organization [facility] Inform ion Partnership [facility] Care Team Providers Care Wall Washer Name Role Phone Clovis Theodore MD Primary Care Provider CLOVIS THEODORE Primary Care Unavailable CLOVIS MONTIEL Referring Unavailable CLOVIS MONTIEL Attending Unavailable Allergies Allergy Classification Reported Allergen(s) Allergy Type Date of Onset Reaction(s) Facility (2 sources) Sulfonamides (Antibiotic) Propensity to adverse reactions to drug 12-08-2022 [facility] Medications Current Medications Medication Drug Class(es) Dates Sig (Normalized) Sig (Original) Aspirin (2 sources) Platelet Aggregation Inhibitor, Nonsteroidal Anti-inflammatory Drug ASPIRIN 81 PO Take by mouth. 0 Active atorvastatin 20 mg oral tablet (4 sources) HMG-CoA Reductase Inhibitor Start: 12-01-2022 End: 12-08-2022 take 1 tablet by mouth once daily Atorvastatin 20 MG tablet Indications: Palpitations , Murmur, cardiac Take 1 tablet by mouth daily. 90 tablet 3 12/08/2022 Active 24 hr metoprolol succinate 25 mg extended release oral tablet (4 sources) beta-Adrenergic Nicole Start: 12-01-2022 End: 12-08-2022 take 1 tablet by mouth once daily Metoprolol succinate 25 MG tablet XL Indications: Palpitations , Murmur, cardiac Take 1 tablet by mouth daily. 90 tablet 3 12/08/2022 Active Multiple Vitamin (multivitamin) capsule (2 sources) take 1 capsule by mouth once daily Multiple Vitamin (multivitamin) capsule Take 1 capsule by mouth daily. 0 Active Probiotic Product (PRO-BIOTIC BLEND PO) (2 sources) Probiotic Produc t (PRO-BIOTIC BLEND PO) Take by mouth. 0 Active Problems Problem Classification Problem Date Documented Da te Episodic/Chronic Cardiac dysrhythmias (4 sources) Palpitations; Translations: [Palpitations] Onset: 12-08-2022 3 Episodic Disorders of lipid metabolism (4 sources) Hyperlipidemia; Translations: [Hyperlipidemia, unspecified] Onset: 12-08-2022 12-08-2022 Chronic Heart valve disorders (4 sources) Heart murmur; Translations: [Cardiac murmur, unspecified] Onset: 12-08-2022 12-08-2022 Episodic Vital Signs Date Time Vital Sign Value Performing Clinician Faci lity 12-08-2022 10:52-0400 Body height 162.6 cm Clovis Montiel MD Work Phone: [facility] 12-08-2022 10:52-0400 Body mass index (BMI) [Ratio] 27.77 kg/m2 Clovis Montiel MD Work Phone: [facility] 12-08-2022 10:52-0400 Body weight 73.39 kg Clovis Montiel MD Work Phone: [facility] 12-08-2022 10:52-0400 Diastolic blood pressure 70 mm[Hg] Clovis Montiel MD Work Phone: [facility] 12-08-2022 10:52-0400 Heart rate 51 /min lCovis Montiel MD Work Phone: [facility] 12-08-2022 10:52-0400 Systolic blood pressure 146 mm[Hg] Clovis Montiel MD Work Phone: [facility] Encounters Encounter Date Encounter Type Care Provider Facility Start: 12-08-2022 ambulatory CLOVIS THEODORE Facility :[facility] Start: 12-08-2022 End: 12-08-2022 Office outpatient new 45 minutes Clovis Montiel MD Work Phone: [facility] Comment on above: Palpitations (Primar y Dx); Murmur, cardiac; Hyperlipidemia, unspecified hyperlipidemia type Plan of Treatment Date Care Activity Detail Author Start: 12-02-2023 End: 12-02-2023 Patient encounter procedure [facility] Start: 06-09-2023 Screening for malignant neoplasm of colon COLORECTAL CANCER SCREENING DISCUSSION [facility] Start: 01-23-2023 Influenza vaccination INFLUENZA VACCINE (#1) [facility] Start: 01-16-2008 Zoster vaccine hzv live for subcutaneous use ZOSTER (SHINGLES) VACCINE (1 of 2) [facility] Start: 1998 Lipid panel LIPID SCREENING [facility] Start: 1998 Screening for malignant neoplasm of breast MAMMOGRAM SCREENING DISCUSSION [facility] Start: 1979 Screening for malignant neoplasm of cervix CERVICAL CANCER SCREENING DISCUSSION [facility] Start: 1977 Third diphtheria, tetanus and acellular pertussis (DTaP) vaccination TDAP (ADULT) [facility] Start: 1973 HIV screening HIV SCREENING DISCUSSION [facility] Start: 1960 COVID-19 VACCINE (#1) COVID-19 VACCINE (#1) [facility] Start: 1960 Hepatitis C screening HEPATITIS C VIRUS SCREENING [facility] Start: 1960 Tetanus vaccination TETANUS [facility] Ecg routine ecg w/le ast 12 lds w/i&r [place] ELECTROCARDIOGRAM, COMPLETE [place] - OFFICE PERFORMED Routine Palpitations Murmur, cardiac Ordered: 12/08/2022 [facility] Comment on above: Ordered: 12/08/2022 Echocardiography ECHOCARDIOGRAM Echocardiography Routine Palpitations Murmur, cardiac Ordered: 12/08/2022 [facility] Comment on above: Ordered: 12/08/2022 Payers Date Payer Category Payer Private Health Insurance [employer] Deanne JUDGE [id number] 2022-Present [address] [place]FFRIES [id number] 2022 Private Health Insurance [id number] 1960 Unknown [id number] Social History Date Type Detail Facility Start: 12-08-2022 Tobacco smoking stat us NHIS Ex-smoker [facility] End: 05-25-2010 History of tobacco use Current smoker [facility] End: 05-25-2010 History of tobacco use Cigarette Smoker [facility] Start: 12-08-2022 Tobacco use and exposure Former smokeless tobacco user [facility] Start: 12-08-2022 Alcohol intake Ex-drinker (finding) [facility] Start: 12-08-2022 History of Social function [facility] Start: 12-08-2022 Tobacco use panel [facility] Start: 1960 Sex Assigned At Not on file [facility] Evaluation + Plan note 12-08-2022 Assessment & Plan Note - Clovis Montiel MD - 12/08/2022 12:05 PM EDT Note Date & Type Note Facility 12-08-2022 Evaluation + Plan note Associated Problem(s): Hyperlipidemia Hyperlipidemia The patient does have history of hyperlipidemia. She will continue her atorvastatin 20 mg p.o. q.day. A refill has been provided for her. In the interim she will plan to have her future lipid labs performed via her employment annual evaluation. A copy of the lipid labs to be appreciated for continuity of care. [facility] Note 12-08-2022 Assessment & Plan Note - Clovis Montiel MD - 12/08/2022 12:05 PM EDTAssessment & Plan Note - Clovis Montiel MD - 12/08/2022 12:04 PM EDT Note Date & Type Note Facility 12-08-2022 Miscellaneous Notes Associate d Problem(s): Hyperlipidemia Hyperlipidemia The patient does have history of hyperlipidemia. She will continue her atorvastatin 20 mg p.o. q.day. A refill has been provided for her. In the interim she will plan to have her future lipid labs performed via her employment annual evaluation. A copy of the lipid labs to be appreciated for continuity of care. Associated Problem(s): Murmur, cardiac Cardiac murmur The patient does have a cardiac murmur. A request has been made for the patient to have a follow-up echocardiogram to reassess her valvular anatomy and physiology. Associated Problem(s): Palpitations Palpitations At the present time the patient appears to be doing well without any ongoing acute symptoms or adverse events. She will continue her metoprolol succinate 25 mg p.o. q.day. A refill was provided for her. documented in this encounter [facility] Evaluation + Plan note 12-08-2022 Assessment & Plan Note - Clovis Montiel MD - 12/08/2022 12:04 PM EDT Note Date & Type Note Facility 12-08-2022 Evaluation + Plan note Associated Problem(s): Murmur, cardiac Cardiac murmur The patient does have a cardiac murmur. A request has been made for the patient to have a follow-up echocardiogram to reassess her valvular anatomy and physiology. [facility] Evaluation + Plan note 12-08-2022 Assessment & Plan Note - Clovis Montiel MD - 12/08/2022 12:04 PM EDT Note Date & Type Note Facility 12-08-2022 Evaluation + Plan note Associated Problem(s): Palpitations Palpitations At the present time the patient appears to be doing well without any ongoing acute symptoms or adverse events. She will continue her metoprolol succinate 25 mg p.o. q.day. A refill was provided for her. [facility] History of Present illness Narrative 12-08-2022 Ingris Noyola - 12/08/2022 11:00 AM EDTPelsy Montiel MD - 12/08/2022 11:00 AM EDT Note Date & Type Note Facility 12-08-2022 History of Present illness Narrative 12 Lead EKG performed per provider's order, per policy, and given to Dr. Montiel for interpretation. Medical dock pumper offered to patient prior to sensitive procedure and patient declined Referring provider: Clovis Theodore DO (General) Primary care provider: Clovis Theodore DO (General) Dear Dr. Theodore, I had the pleasure of seeing your patient, Bear Hess, at the [facility] on 12/08/2022. As you recall, you referred this 62 y.o. female to our attention for a history of palpitations, cardiac murmur, and hyperlipidemia. I have reviewed pertinent outside medical records available at this time regarding this patient. Chief Complaint Patient presents with Establish Care Pt states she is overdue for cardiac follow up. No onset cardiac symptoms. HPI: This is a 62-year-old white female [facility] PCU/HIGH SCHOOL HISTORY TEACHER previously followed by the [facility] who presents for an [facility] new patient cardiovascular medicine appointment based upon a history of palpitations, cardiac murmur, and hyperlipidemia. She has undergone previous noninvasive and invasive cardiovascular studies in the past. She has been treated medically with beta-blockers with metoprolol succinate 25 mg p.o. q.day and atorvastatin 20 mg p.o. q.day.She has had her lipid lab evaluation performed through her [facility] yearly laboratory study program. Her previous cardiovascular records are unavailable at this time for review. She states overall she is doing well. She denies any ongoing concerning chest discomfort suspicious for angina pectoris at rest or with exertion. There has been no orthopnea, PND, peripheral pitting edema, ongoing palpitations, near-syncope, or syncope. She states she has not required other cardiovascular testing performed since her previous evaluation. She states she remains active. She works in her garden were she has over 50 tomato plants, along with other plans, that she cares for. She states that she and her bicycle frequently and several miles a day including at times 10-20 miles a day. She states with these activities she feels well and does not have any concerning symptoms. She notes overall with respect to palpitations she has done well since being on her beta-blockers. She believes that her atorvastatin has been taking care of her lipid profile. In the office this day she did have an ECG performed. She was noted to have sinus bradycardia with a ventricular rate of 59 beats per minute and a nonspecific T-wave change. Historical information was reviewed in the medical record. The following historical elements were reviewed by a provider in the specific [facility] olguin and updated as appropriate: Allergies Allergen Reactions Sulfa Antibiotics Outpatient Medications Prior to Visit Medication Sig Dispense Refill ASPIRIN 81 PO Take by mouth. Multiple Vitamin (multivitamin) capsule Take 1 capsule by mouth daily. Probiotic Product (PRO-BIOTIC BLEND PO) Take by mouth. Atorvastatin 20 MG tablet Metoprolol succinate 25 MG tablet XL No facility-administered medications prior to visit. No past medical history on file. Past Surgical History: Procedure Laterality Date NOSE SURGERY 2018 TUBAL LIGATION 1988 History reviewed. No pertinent family history. Social History Socioeconomic History Marital status: Spouse name: Not on file Number of children: Not on file Years of education: Not on file Highest education level: Not on file Occupational History Not on file Tobacco Use Smoking status: Former Types: Cigarettes Quit date: 2010 Years since quittin.5 Smokeless tobacco: Former Vaping Use Vaping Use: Former Substance and Sexual Activity Alcohol use: Not Currently Drug use: Not Currently Sexual activity: Not on file Other Topics Concern Not on file Social History Narrative Not on file Social Determinants of Health Financial Resource Strain: Not on file Food Insecurity: Not on file Transportation Needs: Not on file Physical Activity: Not on file Stress: Not on file Social Connections: Not on file Intimate Partner Violence: Not on file Housing Stability: Not on file Review of Systems Cardiovascular: Negative for chest pain, claudication, cyanosis, dyspnea on exertion, irregular heartbeat, leg swelling, near-syncope, orthopnea, palpitations, paroxysmal nocturnal dyspnea and syncope. On physcial exam today, the vital signs are as follows: BP 146/70 (BP Location: Left arm, BP Position: Sitting) Pulse 51 Ht 1.626 m (5' 4 ) Wt 73.4 kg (161 lb 12.8 oz) BMI 27.77 kg/m Smoking Status Former Body mass index is 27.77 kg/m .. Physical Exam Vitals and nursing note reviewed. Constitutional: Appearance: Normal appearance. HENT: Head: Normocephalic and atraumatic. Cardiovascular: Rate and Rhythm: Regular rhythm. Bradycardia present. Chest Wall: PMI is not displaced. No thrill. Pulses: Carotid pulses are 2+ on the right side and 2+ on the left side. Radial pulses are 2+ on the right side and 2+ on the left side. Posterior tibial pulses are 2+ on the right side and 2+ on the left side. Heart sounds: S1 normal and S2 normal. Murmur heard. Systolic murmur is present with a grade of 2/6. No friction rub. No gallop. Comments: 2-3/6 systolic murmur @ LLSB/LVOT/sternal notch Pulmonary: Effort: Pulmonary effort is normal. Breath sounds: Normal breath sounds. Abdominal: General: Abdomen is flat. Bowel sounds are normal. Palpations: Abdomen is soft. Musculoskeletal: General: Normal range of motion. Cervical back: Normal range of motion and neck supple. Right lower leg: No edema. Left lower leg: No edema. Skin: General: Skin is warm and dry. Neurological: General: No focal deficit present. Mental Status: She is alert. Psychiatric: Mood and Affect: Mood normal. Relevant diagnostic data includes the following: No results found for: CHOLESTEROL , TRIG , HDL , LDLCALC , LDLDIRECT , NHCHOL No results found for: SODIUM , POTASSIUM , CHLORIDE , CO2 , BUN , CREATSERUM , GLUCOSE No results found for: WBC , WBCCOUNT , WBCFETAL , HGB , HCT , PLATELET , MCV No results found for: TSH , GNX70KYH , JTA75QTP , TSHBASELINE , TSHULTRASEN , TSHRFT4 No results found for: HGBA1C I have independently reviewed the following reports and/or images/tracings: as noted below. ELECTROCARDIOGRAM 12/05/2022 [facility] Sinus bradycardia Nonspecific T wave abnormality In summary, Ms. Hess is managed today for the following issues: Palpitations Palpitations At the present time the patient appears to be doing well without any ongoing acute symptoms or adverse events. She will continue her metoprolol succinate 25 mg p.o. q.day. A refill was provided for her. Murmur, cardiac Cardiac murmur The patient does have a cardiac murmur. A request has been made for the patient to have a follow-up echocardiogram to reassess her valvular anatomy and physiology. Hyperlipidemia Hyperlipidemia The patient does have history of hyperlipidemia. She will continue her atorvastatin 20 mg p.o. q.day. A refill has been provided for her. In the interim she will plan to have her future lipid labs performed via her employment annual evaluation. A copy of the lipid labs to be appreciated for continuity of care. I have ordered the following: Orders Placed This Encounter ECHOCARDIOGRAM Atorvastatin 20 MG tablet Metoprolol succinate 25 MG tablet XL [place] ECG, CLINIC PERFORMED Overall, patient appears to be without any acute cardiovascular symptoms at this time. She will continue her current medical management. A copy of her previous cardiovascular records has been requested for continuity of care. She will be asked to have a future echocardiogram to monitor her cardiac murmur and any underlying valvular heart related issues. In the interim she will continue to monitor her vital signs at home. She does note that her blood pressure does not traditionally on time.run on at the level it is today with respect to her systolic pressure. She attributes this to her visit navigator in traffic today to be at the office on time. If she finds that her blood pressures are elevated at home then she may need further evaluation and/or adjustment of her medical management. The above was discussed and reviewed with her. She was agreeable to this approach. We will plan on Return in about 1 year (around 12/09/2023) unless needed sooner. If I can be of any further assistance, please do not hesitate to contact me. Sincerely, Clovis Montiel MD, [facility] [employer] - Clinical [facility] Cardiovascular Medicine Please be aware that portions of this note may have been completed with a voice recognition software system. Despite efforts to edit the note mis-transcribed words may still be present. documented in this encounter [facility] Evaluation note Note Date & Type Note Facility Evaluation note Diagnosis Palpitations- Primary Murmur, cardiac Undiagnosed cardiac murmurs Hyperlipidemia, unspecified hyperlipidemia type documented in this encounter [facility] Reason for Referral Specialty Diagnoses / Procedures Referred By Sebas t Referred To Contact Diagnoses Palpitations Murmur, cardiac Procedures ECHOCARDIOGRAM [place] ECHO HEART XTHORACIC,COMPLETE W DOPPLER Clovis Montiel MD [address] [place] [address] Referral ID Status Reason Start Date Expiration Date V isits Requested Visits Authorized [id number] New Request 12/08/2022 01/02/2024 1 1 Summary Purpose Family History No Family History Records Found Advance Directives No Advanced Directives Records Found Additional Source Comments Reason for Visit (unrecogniz ed section and content) Reason Comments Establish Care Pt states she is ove rdue for cardiac follow up. No onset cardiac symptoms. Care Teams (unrecognized sec tion and content) Wall Washer Relationship Specialty Start Date End Date Clovis Theodore MD [address] [place] [address] PCP - General Family Medicine 11/04/22 INFORMATION SOURCE (unrecogn ized section and content) DATE CREATED AUTHOR 01/13/2023 [facility] FOR RECORDS PERTAINING TO PATIENTS WHO ARE OR HAVE BEEN ENROLLED IN A CHEMICAL DEPENDENCY/SUBSTANCEABUSE PROGRAM, SOME INFORMATION MAY BE OMITTED. This clinical summary was aggregated from multiple sources. Caution should be exercised in using it in the provision of clinical care. This summary normalizes information from multiple sources, and as a consequence, information in this document may materially change the coding, format and clinical context of patient data. In addition, data may be omitted in some cases. CLINICAL DECISIONS SHOULD BE BASED ON THE PRIMARY CLINICAL RECORDS. [employer] provides no warranty or guarantee of the accuracy or completeness of information in this document.
== END | disposition home or self-care (01) ==
LOC: OPBI 12:28
PROVIDERS: PCP Family Medicine; Referring Provider Family Medicine; Visit Provider Family Medicine
DX: Z12.31 Encounter for screening mammogram for malignant neoplasm of breast (principal); Z80.3 Family history of malignant neoplasm of breast
CPT/HCPCS: 77063; 77067

== ENCOUNTER → 2025-03-20 | Outpatient (CLI) | payer MEDICARE, SELFPAY ==
[2025-03-20 13:01] LABS: AST(SGOT) 21 U/L (<=31); Alanine Aminotransfer ALT/SGPT 24 U/L (<=34); Albumin, Serum 4.4 g/dL (3.4-4.8); Alkaline Phosphatase 61 U/L (35-104); Anion Gap 10 (5-15); BUN 12 mg/dL (4-19); BUN/Creat Ratio 17.5 RATIO (10-20); Calcium,Total 9.5 mg/dL (7.6-11.0); Carbon Dioxide 25.9 mmol/L (21.0-32.0); Chloride 107 mmol/L (98-108); Cholesterol 150 mg/dL (<=200); Globulin 3.0 g/dL (2.2-4.2); Glucose 100 mg/dL (70-99); Low Density Lipoprotein Calc. 66 mg/dL; Potassium 4.3 mmol/L (3.3-5.1); Triglycerides 113 mg/dL; Very Low Density Lipoprotein 23 mg/dL (5-40); cholesterol:hdl ratio screen 2.35
== END | disposition home or self-care (01) ==
LOC: MTLAB 10:15
PROVIDERS: PCP Family Medicine; Referring Provider Family Medicine; Visit Provider Family Medicine
DX: E78.5 Hyperlipidemia, unspecified (principal)
CPT/HCPCS: 36415; 80053; 80061

== ENCOUNTER → 2025-04-11 | Outpatient (CLI) | payer MEDICARE, SELFPAY ==
--- NOTE | 2025-04-11 11:44 | BI_ITS ---
EXAM: SCRN MAMM (CAD)W/REED BILAT DATE: 04/11/2025 CLINICAL HISTORY: F, Age 65 y/o , SCREENING Sister with breast cancer. TECHNIQUE: Procedure Code: [id number] Modality: MG Procedure: SCRN MAMM (CAD)W/REED BILAT COMPARISON: Prior exam(s) dated March 28, 2024.. FINDINGS: TISSUE DENSITY: The breasts are heterogeneously dense, which may obscure small masses. Bilateral Breast Mammographic Findings: No significant masses, calcifications or other abnormalities are identified. Stable calcified nodule in the deep upper medial aspect of the right breast. Stable small bilateral fat containing axillary lymph nodes. No suspicious masses, areas of developing architectural distortion, or suspicious calcifications. There has been no significant interval change. BI/SCRN MAMM (CAD)W/REED BILAT IMPRESSION: Stable bilateral screening mammogram. OVERALL FINAL ASSESSMENT BI-RADS 2: BENIGN RECOMMENDATION: Routine annual follow-up in 1 Year Additional Recommendation none A letter with findings and recommendations will be mailed to the patient. Reading Location: [facility]
--- OUTSIDE RECORDS SUMMARY | 2025-04-11 15:37 | XMS RPT_ITS | CCD ---
Author Organization [facility] Care Team Providers Care Mower Operator Name Role Phone Dr. Clovis Theodore Primary Care Provider Arben, Dr. Brannon Referring Provider Dr. Clovis Montiel Attending Provider [phone] Clovis Theodore MD Primary Care Provider [phone] CLOVIS THEODORE Referring Unavailable ARBEN, CLOVIS Farmer Primary Care Unavailable ARBEN, CLOVIS Farmer Attending Unavailable ARBEN, CLOVIS Farmer Referring Unavailable CLOVIS MONTIEL Attending Unavailable THEODORE, CLOVIS Farmer Primary Care Unavailable Theodore, Clovis Attending Unavailable Theodore, Clovis Primary Care Unavailable Theodore, Clovis Referring Unavailable Theodore, Clovis Attending Unavailable Theodore, Clovis Primary Care Unavailable Theodore, Clovis Referring Unavailable Theodore, Clovis Attending Unavailable Theodore, Clovis Primary Care Unavailable Theodore, Clovis Referring Unavailable Allergies Allergy Classification Reported Allergen(s) Allergy Type Date of Onset Reaction(s) Facility (4 sources) Sulfonamides (Antibiotic) Propensity to adverse reactions to drug 3 [facility] (1 source) Sulfonamides (Antibiotic) Allergy to substance 2 [facility] (1 source) Sulfonamides (Antibiotic) Drug allergy (disorder) 2 [facility] Repository Medications Current Medications Medication Drug Class(es) Dates Sig (Normalized) Sig (Original) aspirin 81 mg delayed release oral tablet (6 sources) Platelet Aggregation Inhibitor, Nonsteroidal Anti-inflammatory Drug Start: 05-06-2018 Aspirin (Adult Low Dose Aspirin) 81 mg tablet,delayed release (DR/EC) Active 81 MG PO DAILY May 06, 2018 12:00am ASPIRIN 81 PO Ta ke by mouth. Active ASPIRIN 81 PO Ta ke by mouth. 0 Active atorvastatin 20 mg oral tablet (15 sources) HMG-CoA Reductase Inhibitor Start: 05-21-2020 End: 12-08-2022 take 1 tablet by mouth once daily Atorvastatin 20 MG tablet Indications: Palpitations , Murmur, cardiac Take 1 tablet by mouth daily. 90 tablet 3 12/08/2022 Active Start: 05-06-2018 End: 05-19-2019 take 20 mg by mouth once daily Atorvastatin Discontinu ed 20 MG PO DAILY May 06, 2018 8:52am May 19, 2019 12:06pm famotidine 20 mg oral tablet (2 sources) Histamine-2 Receptor Antagonist Start: 10-30-2019 take 20 mg by mouth twice daily Famotidine Active 20 MG PO TWICE A DAY October 29, 2019 11:00pm 24 hr metoprolol succinate 25 mg extended release oral tablet (19 sources) beta-Adrenergic Nicole Start: 10-30-2019 End: 12-08-2022 take 1 tablet by mouth once daily Metoprolol succinate 25 MG tablet XL Indications: Palpitations , Murmur, cardiac Take 1 tablet by mouth daily. 90 tablet 3 12/08/2022 Active Start: 05-06-2018 End: 06-20-2019 take 1 tablet by mouth once daily Metoprolol Succinate (Toprol Xl) 25 mg tablet extended release 24 hr Discontinued 25 MG PO DAILY May 06, 2018 8:52am June 09, 2018 1:14pm Multiple Vitamin (multivitamin) capsule (4 sources) take 1 capsule by mouth once daily Multiple Vitamin (multivitamin) capsule Take 1 capsule by mouth daily. Active take 1 capsule by mouth once chad ly Multiple Vitamin (multivitamin) capsule Take 1 capsule by mouth daily. 0 Active Probiotic Product (PRO-BIOTI C BLEND PO) (4 sources) Probiotic Produc t (PRO-BIOTIC BLEND PO) Take by mouth. Active Probiotic Produc t (PRO-BIOTIC BLEND PO) Take by mouth. 0 Active Completed/Discontinued Medications Medication Drug Class(es) Dates Sig (Normalized) Sig (Original) clopidogrel 75 mg oral tablet (4 sources) P2Y12 Platelet Inhibitor Start: 05-06-2018 End: 06-02-2018 take 75 mg by mouth once daily Clopidogrel Discontinued 75 MG PO DAILY May 27, 2018 2:40pm June 02, 2018 1:47pm doxycycline hyclate 100 mg oral capsule (2 sources) Tetracycline-class Drug Start: 04-08-2018 End: 06-20-2019 take 100 mg by mouth once daily Doxycycline Hyclate Discontinued 100 MG PO DAILY April 08, 2018 12:00am June 20, 2019 1:07pm hydrOXYzine pamoate 25 mg oral capsule (2 sources) Antihistamine Start: 10-30-2019 End: 06-11-2020 take 50 mg by mouth three times daily as needed Hydroxyzine Pamoate Discontinued 50 MG PO 3 TIMES DAILY NEEDED October 29, 2019 11:00pm June 11, 2020 10:19am predniSONE 20 mg oral tablet (2 sources) Start: 10-30-2019 End: 06-11-2020 take 40 mg by mouth once daily at mealtime Prednisone Discontinued 40 MG PO DAILY October 29, 2019 11:00pm June 11, 2020 10:19am With food Problems Active Problems Problem Classification Problem Date Documented Date Episodic/Chronic Cardiac dysrhythmias (3 sources) Ventricular arrhythmia; Translations: [Ventricular premature depolarization] Chronic Cardiac dysrhythmias (10 sources) Palpitations; Translations: [Palpitations] Onset: 12-08-2022 12-08-2022 Episodic Disorders of lipid metabolism (11 sources) Hyperlipidemia; Translations: [Hyperlipidemia, unspecified] Onset: 12-08-2022 Chronic E Codes: Natural/environment (2 sources) Insect bite - wound; Translations: [Bitten or stung by nonvenomous insect and other nonvenomous arthropods, initial encounter] 10-31-2019 Episodic Essential hypertension (2 sources) Hypertensive disorder; Translations: [Essential (primary) hypertension] 10-31-2019 Chronic Heart valve disorders (3 sources) Mitral valve prolapse; Translations: [Nonrheumatic mitral (valve) prolapse] Chronic Heart valve disorders (10 sources) Heart murmur; Translations: [Cardiac murmur, unspecified] Onset: 12-08-2022 12-08-2022 Episodic Other lower respiratory disease (2 sources) Dyspnea on exertion; Translations: [Other forms of dyspnea] 06-14-2018 Episodic Other screening for suspected conditions (not mental disorders or infectious disease) (6 sources) Electrocardiogram abnormal; Translations: [Abnormal electrocardiogram [ECG] [EKG]] Onset: 04-19-2024 06-14-2018 Episodic Residual codes; unclassified (2 sources) Edema of hand; Translations: [Localized edema] 10-31-2019 Episodic Past or Other Problems Problem Classification Problem Date Documented Da te Episodic/Chronic Unclassified (1 source) Onset: 04-11-2024 04-11-2024 Results Test Name Value Interpretation Reference Range Facility Comprehensive Metabolic Prof brandon 03-20-2025 Albumin [Mass/Vol] 4.4 g/dL Normal 3.4-4.8 [facility] Comment on above: Performed By: #### L 500.4100, [id number] #### [facility] [address] [place], [address] Albumin/Globulin [Mass ratio] 1.5 {ratio} Normal 0.9-2.4 [facility] Comment on above: Performed By: #### L 500.4100, [id number] #### [facility] [address] [place], [address] ALK PHOS 61 U/L Normal 35-104 [facility] Comment on above: Performed By: #### L 500.4100, [id number] #### [facility] [address] [place], [address] ALT [Catalytic activity/Vol] 24 U/L Normal <=34 [facility] Comment on above: Performed By: #### L 500.4100, [id number] #### [facility] [address] [place], [address] AST [Catalytic activity/Vol] 21 U/L Normal <=31 [facility] Comment on above: Performed By: #### L 500.4100, [id number] #### [facility] [address] [place], [address] Bilirubin [Mass/Vol] 0.50 mg/dL Normal 0.00-1.30 [facility] Comment on above: Performed By: #### L 500.4100, [id number] #### [facility] [address] [place], [address] BUN/CRE 17.5 RATIO Normal 10-20 [facility] Comment on above: Performed By: #### L 500.4100, [id number] #### [facility] [address] [place], [address] Calcium [Mass/Vol] 9.5 mg/dL Normal 7.6-11.0 [facility] Comment on above: Performed By: #### L 500.4100, [id number] #### [facility] [address] [place], [address] Chloride [Moles/Vol] 107 mmol/L Normal 98-108 [facility] Comment on above: Performed By: #### L 500.4100, [id number] #### [facility] [address] [place], [address] CO2 [Moles/Vol] 25.9 mmol/L Normal 21.0-32.0 [facility] Comment on above: Performed By: #### L 500.4100, [id number] #### [facility] [address] [place], [address] Creatinine [Mass/Vol] 0.67 mg/dL Low 0.70-1.20 [facility] Comment on above: Performed By: #### L 500.4100, [id number] #### [facility] [address] [place], [address] GAP 10 Normal 5-15 [facility] Comment on above: Performed By: #### L 500.4100, [id number] #### [facility] [address] [place], [address] GFR/1.73 sq M.predicted among non-blacks MDRD (S/P/Bld) [Vol rate/Area] 96 mL/min/{1.73_m2} Normal >60 [facility] Comment on above: Result Comment: mL/m in/1.73m2 CKD-EPI Creatinine Equation (2020) Performed By: #### L 500.4100, [id number] #### [facility] [address] [place], [address] Globulin (S) [Mass/Vol] 3.0 g/dL Normal 2.2-4.2 [facility] Comment on above: Performed By: #### L 500.4100, [id number] #### [facility] [address] [place], [address] Glucose [Mass/Vol] 100 mg/dL High 70-99 [facility] Comment on above: Performed By: #### L 500.4100, [id number] #### [facility] [address] [place], [address] Potassium [Moles/Vol] 4.3 mmol/L Normal 3.3-5.1 [facility] Comment on above: Performed By: #### L 500.4100, [id number] #### [facility] [address] [place], [address] Sodium [Moles/Vol] 143 mmol/L Normal 133-145 [facility] Comment on above: Performed By: #### L 500.4100, [id number] #### [facility] [address] [place], [address] T PROT 7.4 g/dL Normal 5.9-8.4 [facility] Comment on above: Performed By: #### L 500.4100, [id number] #### [facility] [address] [place], [address] Urea nitrogen [Mass/Vol] 12 mg/dL Normal 4-19 [facility] Comment on above: Performed By: #### L 500.4100, [id number] #### [facility] [address] [place], [address] Lipid Profileon 03-20-2025 CHOL:HDL 2.35 Normal [facility] Comment on above: Performed By: #### L 500.4100, [id number] #### [facility] [address] [place], [address] Cholesterol [Mass/Vol] 150 mg/dL Normal <=200 [facility] Comment on above: Result Comment: Chol esterol level, Desirable <200 mg/dL Borderline high cholesterol 200-239 mg/dL High cholesterol >=240 mg/dL Recommendations of the NCEP Adult Treatment Panel for the following risk-cutoff thresholds for the [place] population. Performed By: #### L 500.4100, [id number] #### [facility] [address] [place], [address] Cholesterol in HDL [Mass/Vol] 64 mg/dL Normal [facility] Comment on above: Result Comment: Loretta onal Cholesterol Education Program (NCEP) guidelines: <40 mg/dL: Low HDL-cholesterol (major risk factor for CHD) >= 60 mg/dL: High HDL-cholesterol (negative risk factor for CHD) HDL-cholesterol is affected by a number of factors, e.g. smoking, exercise, hormones, sex and age. Performed By: #### L 500.4100, [id number] #### [facility] [address] [place], [address] Cholesterol in LDL [Mass/Vol] 66 mg/dL Normal [facility] Comment on above: Result Comment: Bord kchsnz=404-489 mg/dL Higher Rqyg=464 mg/dL or greater James Equation 2020 for LDL-C Performed By: #### L 500.4100, [id number] #### [facility] [address] [place], [address] Cholesterol in VLDL [Mass/Vol] 23 mg/dL Normal 5-40 [facility] Comment on above: Performed By: #### L 500.4100, [id number] #### [facility] [address] [place], [place], [address] Triglyceride [Mass/Vol] 113 mg/dL Normal [facility] Comment on above: Result Comment: The drugs N-Acetylcysteine and Metamizole may falsely depress this assay. Normal range: <150 mg/dL Borderline High: 150-199 mg/dL High: 200-499 mg/dL Very High: >500 mg/dL Performed By: #### L 500.4100, [id number] #### [facility] [address] [place], [address] Cardiac echo study Procedure on 04-11-2024 Ao ASC index 1.71 cm/m2 [facility] Ao peak juni 1.71 m/s [facility] Ao SOV index 1.71 cm/m2 [facility] Ao STJ index 1.59 cm/m2 [facility] Ao VTI 36.00 cm [facility] Ascending aorta 2.90 cm [facility] AV LVOT peak gradient 9 mmHg [facility] AV mean gradient 5 mmHg [facility] AV peak gradient 12 mmHG [facility] AV valve area 2.93 cm2 [facility] Velocity Ratio 0.85 [facility] JACK (continuity Vmax) 2.68 cm2 [facility] JACK (continuity VTI) 2.93 cm2 [facility] JACK index (continuity Vmax) 1.58 m/s [facility] JACK index (continuity VTI) 1.72 cm2/m2 [facility] Avg e' pk juni 0.09 m/s [facility]g E/e' ratio 13.30 [facility] Body surface area Derived from formula 1.7 m2 [facility] BP EF 65 % [facility] DI (Vmax[facility] 0.85 [facility] DI (VTI) 0.93 m/2 [facility] E wave decelartion time 222.00 msec [facility] e' lateral pk juni 0.0910 m/s [facility] e' lateral pk juni 0.09 m/s [facility] e' septal pk juni 0.0880 m/s [facility] e' septal pk juni 0.09 m/s [facility] E/A ratio 1.51 [facility] E/e' lateral ratio 13.08 [facility] E/e' septal ratio 13.52 [facility] EF SP 2CH 68 [facility] EF SP 4CH 65 [facility] EST RAP 3.00 mmHg [facility] FS 35 % [facility] IVC ostium 1.70 cm [facility] IVS 1.00 cm [facility] LA AREA 2CH 20.20 cm2 [facility] LA area 4CH 18.80 cm2 [facility] LA ESV BP (MOD) 55 mL [facility] LA ESV BP (MOD) index 32 mL/m2 [facility] LA ESV SP 2CH (MOD) 60 mL [facility] LA ESV SP 4CH (MOD) 50 mL [facility] LA size 4.20 cm [facility] LEFT ATRIAL DIAMETER INDEX 2.47 cm/m2 [facility] Long Strain -21.8 % [facility] LV EDV BP 69 mL [facility] LV EDV SP 2CH 59 mL [facility] LV EDV SP 4CH 79 mL [facility] LV ESV BP 24 mL [facility] LV ESV SP 2CH 19 mL [facility] LV ESV SP 4CH 28 mL [facility] LV mass 158.82 g [facility] LV Mass Index 93.4 g/m2 [facility] LV RWT 0.38 [facility] LV stroke volume BP (ml) 45 mL [facility] LV stroke volume index BP 26.47 mL/m2 [facility] LVIDD 4.80 cm [facility] LVIDS 3.10 cm [facility] LVOT area 3.14 cm2 [facility] LVOT diameter 2.00 cm [facility] LVOT peak juni 1.46 m/s [facility] LVOT peak VTI 33.60 cm [facility] LVOT stroke volume 106 cm3 [facility] LVOT stroke volume index 62.06 ml/m2 [facility] MV pk A juni 0.79 m/s [facility] MV pk E juni 1.19 m/s [facility] AV VTI RATIO PRE STRESS 0.93 [facility] ECHO LV BIPLANE SYSTOLIC VOLUME INDEX 14.12 mL/m2 [facility] ECHO LV BP DIASTOLIC VOLUME INDEX 40.59 mL/m2 [facility]SU RVOT VTI RATIO 0.89 [facility] PV mean gradient 6 mmHg [facility] PV peak gradient 8 mmHg [facility] PV PK JUNI 1.42 m/s [facility] PV VTI 35.70 cm [facility] PW 0.90 cm [facility] RA vol index 4CH (MOD) 15.88 mL/m2 [facility] Right atrium volume 4 chamber method of disks 27 mL [facility] RV basal diam 3.60 cm [facility] RV long diam 9.00 cm [facility] RV mid diam 2.20 cm [facility] RV S' 15.80 cm/s [facility] RVOT peak gradient 6 mmHg [facility] RVOT peak juni 1.26 m/s [facility] RVOT peak VTI 31.90 cm [facility] Sinus 2.90 cm [facility] STJ 2.70 cm [facility] Stroke Volume 106 cm/mL [facility] Stroke volume index [address] [facility] TAPSE 2.20 cm [facility] Left Ventricle: Chamber size is normal. Normal wall thickness. Normal global systolic function. Regional wall motion is normal. Ejection fraction is normal (60 - 65%). The magnitude of the left ventricular longitudinal strain is normal. Diastolic function is normal. Global longitudinal strain is -21.8%. Right Ventricle: Chamber size is normal. Borderline increased RV free wall thickness. Systolic function is normal. Mitral Valve: Trace regurgitation. No valve stenosis. Tricuspid Valve: Trace regurgitation. Pulmonary artery systolic pressure (PASP) is unable to be estimated. Trivial pericardial effusion. There is no evidence of tamponade. Left Ventricle Chamber size is normal. Normal wall thickness. Normal global systolic function. Regional wall motion is normal. Ejection fraction is normal (60 - 65%). The magnitude of the left ventricular longitudinal strain is normal. Diastolic function is normal. Global longitudinal strain is -21.8%. Right Ventricle Chamber size is normal. Borderline increased RV free wall thickness. Systolic function is normal. Left Atrium Chamber size is normal. Right Atrium Chamber size is normal. IVC/SVC The inferior vena cava is normal in size. The inferior vena cava structure has a diameter <21 mm and decreases >50% during inspiration. Mitral Valve Normal appearing leaflets. Leaflet mobility is normal. Trace regurgitation. No valve stenosis. Tricuspid Valve Normal leaflets. Leaflet mobility is normal. Trace regurgitation. Pulmonary artery systolic pressure (PASP) is unable to be estimated. Aortic Valve Trileaflet valve. Leaflet mobility is normal. No regurgitation. No stenosis. Pulmonic Valve Pulmonic valve not well visualized. Trace regurgitation. No stenosis. Pericardium Trivial pericardial effusion. There is no evidence of tamponade. Septum The atrial septum is normal. Pulmonary Artery Pulmonary artery not well visualized. Aorta No dilation to extent seen. SOV: 2.90 cm. STJ: 2.70 cm. Ascendin.90 cm. Study Details A complete echocardiography study (including color flow Doppler, spectral Doppler, M-mode and left ventricular strain) was performed. Imaging system used: Amlogic. Indications Indications for study: murmur. Wall Scoring Score Index: 1.00 The left ventricular wall motion is normal[facility] observation (narrative) [facility] ECHOCARDIOGRAMon 04-11-2024 Echocardiography ? Left Ventricle: Chamber size is normal. Normal wall thickness. Normal global systolic function. Regional wall motion is normal. Ejection fraction is normal (60 - 65%). The magnitude of the left ventricular longitudinal strain is normal. Diastolic function is normal. ? Global longitudinal strain is -21.8%. ? Right Ventricle: Chamber size is normal. Borderline increased RV free wall thickness. Systolic function is normal. ? Mitral Valve: Trace regurgitation. No valve stenosis. ? Tricuspid Valve: Trace regurgitation. ? Pulmonary artery systolic pressure (PASP) is unable to be estimated. ? Trivial pericardial effusion. There is no evidence of tamponade. Table formatting from the original result was not included. Images from the original result were not included. Patient Information Patient Name Evelyn Francisco Legal Sex Female Indication for Exam Priority: Routine Dx: Palpitations [R00.2 (ICD-10-CM)]; Murmur, cardiac [R01.1 (ICD-10-CM)] Comments: Cardiac murmer palpitations Interpretation Summary Result History is available. ? Left Ventricle: Chamber size is normal. Normal wall thickness. Normal global systolic function. Regional wall motion is normal. Ejection fraction is normal (60 - 65%). The magnitude of the left ventricular longitudinal strain is normal. Diastolic function is normal. ? Global longitudinal strain is -21.8%. ? Right Ventricle: Chamber size is normal. Borderline increased RV free wall thickness. Systolic function is normal. ? Mitral Valve: Trace regurgitation. No valve stenosis. ? Tricuspid Valve: Trace regurgitation. ? Pulmonary artery systolic pressure (PASP) is unable to be estimated. ? Trivial pericardial effusion. There is no evidence of tamponade. Findings Left Ventricle Chamber size is normal. Normal wall thickness. Normal global systolic function. Regional wall motion is normal. Ejection fraction is normal (60 - 65%). The magnitude of the left ventricular longitudinal strain is normal. Diastolic function is normal. Global longitudinal strain is -21.8%. Right Ventricle Chamber size is normal. Borderline increased RV free wall thickness. Systolic function is normal. Left Atrium Chamber size is normal. Right Atrium Chamber size is normal. Septum The atrial septum is normal. Mitral Valve Normal appearing leaflets. Leaflet mobility is normal. Trace regurgitation. No valve stenosis. Aortic Valve Trileaflet valve. Leaflet mobility is normal. No regurgitation. No stenosis. Tricuspid Valve Normal leaflets. Leaflet mobility is normal. Trace regurgitation. Pulmonary artery systolic pressure (PASP) is unable to be estimated. Pulmonic Valve Pulmonic valve not well visualized. Trace regurgitation. No stenosis. Aorta No dilation to extent seen. SOV: 2.90 cm. STJ: 2.70 cm. Ascendin.90 cm. Pericardium Trivial pericardial effusion. There is no evidence of tamponade. IVC/SVC The inferior vena cava is normal in size. The inferior vena cava structure has a diameter <21 mm and decreases >50% during inspiration. Pulmonary Artery Pulmonary artery not well visualized. Reading Providers Reading Role Read Date Clovis Montiel MD Echo Irons, Test Tyre Builder 04/11/2024 Wall Scoring Score Index: 1.00 The left ventricular wall motion is normal. Left Heart Measurements LV - Systole LVIDD 4.8 cm IVS 1 cm LVIDS 3.1 cm PW 0.9 cm LV RWT 0.38 LV Mass Index 93.4 g/m2 LV EDV BP 69 mL LV ESV BP 24 mL BP EF 65 % LV stroke volume BP (ml) 45 mL LV stroke volume index BP 26.47 mL/m2 Long Strain -21.8 % LV - Diastole MV pk E juni 1.19 m/s MV pk A juni 0.79 m/s E/A ratio 1.51 e' septal pk juni 0.09 m/s e' lateral pk juni 0.09 m/s Avg e' pk juni 0.09 m/s E/e' septal ratio 13.52 E/e' lateral ratio 13.08 Avg E/e' ratio 13.3 LV - HCM AV LVOT peak gradient 9 mmHg Left Atrium LA size 4.2 cm LA ESV SP 4CH (MOD) 50 mL LA ESV SP 2CH (MOD) 60 mL LA ESV BP (MOD) index 32 mL/m2 Right Heart Measurements RV - 2D RV basal diam 3.6 cm RV mid diam 2.2 cm RV long diam 9 cm RV - Doppler TAPSE 2.2 cm RV S' 15.8 cm/s Right Atrium RA vol index 4CH (MOD) 15.88 mL/m2 EST RAP 3 mmHg Great Vessels Aortic Root - End Diastolic Sinus 2.9 cm STJ 2.7 cm Ascending aorta 2.9 cm Inferior Vena Cava IVC ostium 1.7 cm Doppler Measurements - Aortic Valve Stenosis LVOT diameter 2 cm LVOT area 3.14 cm2 LVOT peak juni 1.46 m/s LVOT peak VTI 33.6 cm Stroke Volume 106 cm/mL Stroke volume index 62 Ao peak juni 1.71 m/s Ao VTI 36 cm AV peak gradient 12 mmHG AV mean gradient 5 mmHg DI (VTI) 0.93 m/2 DI (Vmax) 0.85 JACK (continuity Vmax) 2.68 cm2 JACK index (continuity Vmax) 1.58 m/s A (more content not included)... Normal [facility] SCRN MAMM (CAD)W/REED BILATo n 03-28-2024 SCRN MAMM (CAD)W/REED BILAT [facility] Imaging Services [address] [place], [place] [address] SCRN MAMM (CAD)W/REED BILAT MR#: [id number] Acct: [id number] Name: EVELYN FRANCISCO Rep #: [id number] : 1960 F 64 From: Mor valderrama MD PCP: Dr. Clovis Theodore MD Status: [facility] Study: SCRN MAMM (CAD)W/REED BILAT Date of Exam: 09/15 Exam# [id number] Ordering Dr: Clovis Theodore MD [id number] MAMMOGRAPHY - BILATERAL SCREENING REASON FOR EXAM: Female, 64 years old. Routine annual screening examination. PERTINENT HISTORY: Sister with breast cancer. TECHNIQUE: Digital bilateral breast reed (3D mammographic acquisition) in the CC and MLO projections. 2-D mediolateral oblique (MLO) and craniocaudad (CC) views of both breasts were obtained. CAD: Full Field Digital Mammography with Computer Added Detection was performed. COMPARISON: Comparison is made with prior study dated March 26, 2023 and April 18, 2019. FINDINGS: Breast Composition: The breasts are heterogeneously dense, which may obscure small masses. There are no dominant masses or suspicious calcifications. Stable bilateral fat-containing axillary lymph nodes. No other significant abnormalities are identified. There has been no significant change since the prior study. BI/SCRN MAMM (CAD)W/REED BILAT IMPRESSION: Stable bilateral screening mammogram. Yearly follow-up mammogram recommended. (A) ASSESSMENT CATEGORY: BIRADS Category 2: Benign. A letter regarding these results will be sent to the patient by the facility within 30 days. Approximately 10% of breast cancers are not detected by mammography. A normal mammogram should not delay biopsy of a clinically suspicious abnormality. [id number] Electronically Signed: Mor Avina MD at 12:58 EST , CC: Dr. Clovis Theodore MD Rn Relief Charge: Signed Normal [facility] Basophil percentageOrdered B y: Clovis Theodore on 04-24-2023 Bilirubin [Mass/Vol] 0.60 mg/dL 0.20-1.00 [facility] Comment on above: For patients on eltr ombopag therapy, use of Dimension [place] TBIL is not recommended. Chloride [Moles/Vol] 108 mmol/L 98-107 [facility] Cholesterol [Mass/Vol] 198 mg/dL <200 [facility] Comment on above: <200 mg/dL Desirable 200-240 mg/dL Borderline >240 mg/dL High Risk Glucose [Mass/Vol] 100 mg/dL 74-106 [facility] Comment on above: Fasting Glucose resu lt from 100 to 125 mg/dL suggests IMPAIRED HOMEOSTASIS per A.D.A. criteria. Potassium [Moles/Vol] 3.6 mmol/L 3.5-5.1 [facility] Protein [Mass/Vol] 7.6 g/dL 6.4-8.2 [facility] Sodium [Moles/Vol] 140 mmol/L 136-145 [facility] Triglyceride [Mass/Vol] 213 mg/dL <[address] [facility] Comment on above: The drugs N-Acetylcy steine and Metamizole may falsely depress this assay.Serum Triglycerides Reference Interval Normal <150 mg/dL Borderline high 150 - 199 mg/dL High 200 - 499 mg/dL Very High > or = 500 mg/dL Laboratory - Chemistry and C hemistry - challengeOrdered By: Clovis Theodore on 04-24-2023 ALP [Catalytic activity/Vol] 70 U/L 45-117 [facility] ALT [Catalytic activity/Vol] 43 U/L 13-56 [facility] CO2 [Moles/Vol] 27.0 mmol/L 21.0-32.0 [facility] Globulin (S) [Mass/Vol] 3.8 g/dL 2.2-4.[address] [facility] Urea nitrogen/Creatinine [Mass ratio] 13.1 mg/mg 10-20 [facility] No Panel InformationOrdered By: Clovis Theodore on 04-24-2023 Estimated GFR (MDRD) Amer 98 mL/min >60 [facility] Comment on above: GFR Calc Estimated GFR (MDRD) Non-Af Amer 81 mL/min >60 [facility] Comment on above: Non- GFR Calc Serum or plasma albumin nadja urement (mass/volume)Ordered By: Clovis Theodore on 04-24-2023 Albumin [Mass/Vol] 3.8 g/dL 3.2-5.0 [facility] Serum or plasma albumin/glob ulin mass ratioOrdered By: Clovis Theodore on 04-24-2023 Albumin/Globulin [Mass ratio] 1.0 {ratio} 0.9-2.4 [facility] Serum or plasma calcium nadja urement (mass/volume)Ordered By: Clovis Theodore on 04-24-2023 Calcium [Mass/Vol] 9.1 mg/dL 8.5-10.1 [facility] Serum or plasma cholesterol in HDL measurement (mass/volume)Ordered By: Clovis Theodore on 04-24-2023 Cholesterol in HDL [Mass/Vol] 61 mg/dL >40 [facility] Comment on above: The drugs N-Acetylcy steine and Metamizole may falsely depress this assay. Reference Range HDL <40 mg/dL Low HDL Cholesterol HDL >or= 60 mg/dL High HDL Cholesterol Serum or plasma cholesterol in VLDL measurement (mass/volume)Ordered By: Clovis Theodore on 04-24-2023 Cholesterol in VLDL [Mass/Vol] 43 mg/dL 5-40 [facility] Serum or plasma creatinine m easurement (mass/volume)Ordered By: Clovis Theodore on 04-24-2023 Creatinine [Mass/Vol] 0.76 mg/dL 0.55-1.02 [facility] Comment on above: The validity of the calculated GFR & GFRAA in patients over 70 years has not been determined. Clinical correlation is essential. Serum or plasma low density lipoprotein (LDL) cholesterol measurement (mass/volume)Ordered By: Clovis Theodore on 04-24-2023 Cholesterol in LDL [Mass/Vol] 94 mg/dL 0-130 [facility] Serum or plasma urea nitroge n measurement (mass/volume)Ordered By: Clovis Theodore on 04-24-2023 Urea nitrogen [Mass/Vol] 10 mg/dL 7-18 [facility] Thin prep Papanicolaou smear with manual screeningOrdered By: Clovis Theodore on 04-24-2023 Thin prep Papanicolaou smear with manual screening 21 U/L 15-37 [facility] Thin prep Papanicolaou smear with manual screening 5 5-15 [facility] Vital Signs Date Time Vital Sign Value Performing Clinician Faci alicey 04-11-2024 09:24-0500 Body height 162.6 cm Clovis Theodore MD Work Phone: [facility] 04-11-2024 09:24-0500 Body mass index (BMI) [Ratio] 24.81 kg/m2 Clovis Theodore MD Work Phone: [facility] 04-11-2024 09:24-0500 Body weight 65.6 kg Clovis Theodore MD Work Phone: [facility] 04-11-2024 09:23-0500 Body height 160 cm Clovis Montiel MD Work Phone: [facility] 04-11-2024 09:23-0500 Body mass index (BMI) [Ratio] 25.61 kg/m2 Clovis Montiel MD Work Phone: [facility] 04-11-2024 09:23-0500 Body weight 65.59 kg Clovis Montiel MD Work Phone: [facility] 04-11-2024 09:23-0500 Diastolic blood pressure 76 mm[Hg] Clovis Montiel MD Work Phone: [facility] 04-11-2024 09:23-0500 Heart rate 60 /min Clovis Montiel MD Work Phone: [facility] 04-11-2024 09:23-0500 SaO2% (BldA) [Mass fraction] 99 % Clovis Montiel MD Work Phone: [facility] 04-11-2024 09:23-0500 Systolic blood pressure 146 mm[Hg] Clovis Montiel MD Work Phone: [facility] 12-08-2022 10:52-0400 Body height 162.6 cm Clovis Montiel MD Work Phone: [facility] 12-08-2022 10:52-0400 Body mass index (BMI) [Ratio] 27.77 kg/m2 Clovis Montiel MD Work Phone: [facility] 12-08-2022 10:52-0400 Body weight 73.39 kg Clovis Montiel MD Work Phone: [facility] 12-08-2022 10:52-0400 Diastolic blood pressure 70 mm[Hg] Clovis Montiel MD Work Phone: [facility] 12-08-2022 10:52-0400 Heart rate 51 /min Clovis Montiel MD Work Phone: [facility] 12-08-2022 10:52-0400 Systolic blood pressure 146 mm[Hg] Clovis Montiel MD Work Phone: [facility] 09-19-2021 10:04-0400 Body height 162.[address] Clovis Theodore Work Phone: [facility] Work Phone: 09-19-2021 10:04-0400 Body mass index (BMI) [Ratio] 28 kg/m2 Dr. Clovis Theodore Work Phone: [facility] Work Phone: 09-19-2021 10:04-0400 Body weight 73.[address] Clovis Theodore Work Phone: [facility] Work Phone: 09-19-2021 10:04-0400 Diastolic blood pressure 60 mm[Hg] Dr. Clovis Theodore Work Phone: [facility] Work Phone: 09-19-2021 10:04-0400 Heart rate 56 /min Dr. Clovis Theodore Work Phone: [facility] Work Phone: 09-19-2021 10:04-0400 Respiratory rate 16 /min Dr. Clovis Theodore Work Phone: [facility] Work Phone: 09-19-2021 10:04-0400 Systolic blood pressure 118 mm[Hg] Dr. Clovis Theodore Work Phone: [facility] Work Phone: Encounters Encounter Date Encounter Type Care Provider Facility Start: 04-11-2025 ambulatory Clovis Theodore Facility:[facility] Start: 03-20-2025 ambulatory Clovis Theodore Facility:[facility] Start: 04-11-2024 End: 04-11-2024 Office outpatient visit 25 minutes Clovis Montiel MD Work Phone: [facility] Comment on above: Palpitations (Primar y Dx); Murmur, cardiac; Hyperlipidemia, unspecified hyperlipidemia type Start: 04-11-2024 End: 04-11-2024 Subsequent hospital visit by physician Clovis Theodore MD Work Phone: [facility] Start: 04-11-2024 ambulatory CLOVIS THEODORE Facility :[facility] Start: 03-28-2024 End: 03-28-2024 ambulatory Clovis Theodore Facility:[facility] Start: 07-23-2023 End: 07-23-2023 ambulatory [facility] Work Phone: Start: 07-23-2023 End: 07-23-2023 Patient encounter procedure [facility] Specimen Work Phone: Start: 04-24-2023 End: 04-24-2023 Patient encounter procedure [facility] Work Phone: Start: 12-08-2022 End: 12-08-2022 Office outpatient new 45 minutes Clovis Montiel MD Work Phone: [facility] Comment on above: Palpitations (Primar y Dx); Murmur, cardiac; Hyperlipidemia, unspecified hyperlipidemia type Start: 12-09-2021 End: 12-22-[address] Clovis Theodore Work Phone: [facility] Start: 09-19-2021 End: 09-19-[address] Clovis Theodore Work Phone: [facility] Start: 08-30-[address] Clovis ha Work Phone: [facility] Procedures Date Procedure Procedure Detail Performing Clinician Start: 04-11-2024 Echo tthrc r-t 2d w/wom-mode compl spec&colr d Clovis Montiel MD Work Phone: Viral antigen assay Dr. Clovis Theodore Work Phone: Plan of Treatment Date Care Activity Detail Author Start: 04-12-2025 End: 04-12-2025 Patient encounter procedure 04/12/2025 8:30 AM EST Office Visit [facility] [address] [address] Clovis Montiel MD [address] [address] [facility] Start: 01-24-2024 COVID-19 VACCINE ( season) COVID-19 VACCINE () [facility] Start: 01-24-2024 Influenza vaccination INFLUENZA VACCINE (#1) [facility] Start: 12-02-2023 End: 12-02-2023 Patient encounter procedure [facility] Start: 06-09-2023 Screening for malignant neoplasm of colon COLORECTAL CANCER SCREENING DISCUSSION [facility] Start: 01-23-2023 Influenza vaccination INFLUENZA VACCINE (#1) [facility] Start: 2023 Pneumococcal vaccination PNEUMOCOCCAL VACCINE SERIES (1 of 1 - PCV) [facility] Start: 2018 RSV VACCINE (1 - 1-dose 60+ series) RSV VACCINE (1 - 1-dose 60+ series) [facility] Start: 01-16-2008 Zoster vaccine hzv live for subcutaneous use ZOSTER (SHINGLES) VACCINE (1 of 2) [facility] Start: 1998 Lipid panel LIPID SCREENING [facility] Start: 1998 Screening for malignant neoplasm of breast MAMMOGRAM SCREENING DISCUSSION [facility] Start: 1979 Screening for malignant neoplasm of cervix CERVICAL CANCER SCREENING DISCUSSION [facility] Start: 1977 Third diphtheria, tetanus and acellular pertussis (DTaP) vaccination TDAP (ADULT) [facility] Start: 1973 HIV screening HIV SCREENING DISCUSSION [facility] Start: 1960 COVID-19 VACCINE (#1) COVID-19 VACCINE (#1) [facility] Start: 1960 Hepatitis C screening HEPATITIS C VIRUS SCREENING [facility] Start: 1960 Screening for osteoporosis DEXA SCAN DISCUSSION [facility] Start: 1960 Tetanus vaccination TETANUS [facility] Ecg routine ecg w/le ast 12 lds w/i&r AK ELECTROCARDIOGRAM, COMPLETE AK - OFFICE PERFORMED Routine Palpitations Murmur, cardiac Ordered: 12/08/2022 [facility] Comment on above: Ordered: 12/08/2022 Ecg routine ecg w/le ast 12 lds w/i&r AK ECG ROUTINE ECG W/LEAST 12 LDS W/I&R AK - OFFICE PERFORMED Routine Palpitations Murmur, cardiac Hyperlipidemia, unspecified hyperlipidemia type Ordered: 04/11/2024 [facility] Comment on above: Ordered: 04/11/2024 Echocardiography ECHOCARDIOGRAM Echocardiography Routine Palpitations Murmur, cardiac Ordered: 12/08/2022 [facility] Comment on above: Ordered: 12/08/2022 Immunizations Immunization Date Immunization Notes Care Provider Fa cili 06-07-2018 tetanus toxoid, redu panda diphtheria toxoid, and acellular pertussis vaccine, adsorbed Dr. Clovis Theodore Work Phone: [facility] Payers Date Payer Category Payer Medicare [id number] 2024 Self-pay [id number] 2024 Medicare MEDICARE [facility] HMO OR PPO MEDICARE UHC PPO [id number] 2024-Present [address] [address] [place] [address] [id number] 2024 Unknown GENERIC PAYOR ME DICARE SUPPLEMENT [id number] 2024-Present [phone] [address] [place] [address] [id number] 2024 Medicare [id number] 2024 Private Health Insurance [id number] 2022 Private Health Insurance SARA JUDGE [id number] 2022-Present [address] [place] [address] [id number] 1960 Unknown [id number] 1960 Unknown [id number] Unknown [id number] Unknown [facility] [id number] Unknown [id number] Unknown [id number] Unknown [id number] Social History Date Type Detail Facility Start: 09-19-2021 End: 09-19-2021 Tobacco smoking status ALIS Unknown if ever smoked [facility] Start: 10-30-2019 Occasional [facility] Start: 10-30-2019 None [facility] Start: 10-30-2019 With Family [facility] Start: 1960 Sex Assigned At Female W [facility] Start: 12-08-2022 Tobacco smoking stat us ALIS Ex-smoker [facility] End: 05-25-2010 History of tobacco use Current smoker [facility] End: 05-25-2010 History of tobacco use Cigarette Smoker [facility] Start: 12-08-2022 Tobacco use and exposure Former smokeless tobacco user [facility] Start: 12-08-2022 End: 04-11-2024 Alcohol intake Ex-drinker (finding) [facility] Start: 12-08-2022 End: 04-11-2024 History of Social function [facility] Start: 12-08-2022 End: 04-11-2024 Tobacco use panel [facility] Start: 1960 Sex Assigned At Not on file [facility] Medical Equipment Procedure Code Equipment Code Equipment Origin al Text Equipment Identifier Dates JEMAL 3GRM HEMO STAT ABS FDA Start: 06-14-2018 JEMAL 3GRM HEMO STAT ABS FDA Start: 06-14-2018 Clinical Notes 12-08-2022 to 04-11-2024 Clovis Montiel MD - 04/11/2024 10:00 AM ESTLender Zhao - 04/11/2024 10:00 AM ESTAssessment & Plan Note - Clovis Montiel MD - 04/11/2024 9:58 AM EST Note Date & Type Note Facility 04-11-2024 History of Presen t illness Narrative Images from the original note were not included. Primary care provider: Clovis Theodore MD (General) Dear Dr. Theodore, I had the pleasure of seeing your patient, Evelyn Francisco, at the [facility] on 04/11/2024 in follow-up. I have reviewed pertinent outside medical records available at this time regarding this patient. As you recall, this 64 y.o. female is managed by our group for a history of palpitations, cardiac murmur, and hyperlipidemia. Chief Complaint Patient presents with Follow-up 1 yr follow-up. Pt report no concerns. 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 She has undergone previous noninvasive and invasive cardiovascular studies in the past. She has been treated medically with beta-blockers with metoprolol succinate 25 mg p.o. q.day and atorvastatin 20 mg p.o. q.day.She has had her lipid lab evaluation performed through her [facility] yearly laboratory study program. Her previous cardiovascular [...] per minute and a nonspecific T-wave change. 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 Since her last visit she states overall she has done well. She is recently retired from [facility]. She states overall she has been doing well. She denies any concerning chest discomfort at rest or with exertion. There has been no orthopnea, PND, peripheral pitting edema. She denies any ongoing palpitations at this time. She has had no near-syncope or syncope. She continues to be active. She rides her bicycle. She states when doing so she has had no concerning symptoms. She had laboratory work done by her PCP on 01/21/2024. According to her studies her total cholesterol was reported at 166 with an LDL of 77 and an HDL of 63. Her triglycerides were 129. She had an ECG in the office today. She was noted to be in normal sinus rhythm with nonspecific ST and T-wave abnormality. In comparison to a previous ECG it appears without significant change. She had a transthoracic echocardiogram performed immediately prior to her office visit. Based upon preliminary evaluation it appeared she had overall preserved LV size, wall motion, and systolic function and no hemodynamically significant valvular disease was appreciated. The final images are pending for review. Historical information was reviewed in the medical record. The following historical elements were reviewed by a provider in the specific [facility] olguin and updated as appropriate: Allergies Allergen Reactions Sulfa Antibiotics Outpatient Encounter Medications as of 04/11/2024 Medication Sig Dispense Refill ASPIRIN 81 PO Take by mouth. Atorvastatin 20 MG tablet Take 1 tablet by mouth daily. (Patient taking differently: Take 2 tablets by mouth daily.) 90 tablet 3 Metoprolol succinate 25 MG tablet XL Take 1 tablet by mouth daily. 90 tablet 3 Multiple Vitamin (multivitamin) capsule Take 1 capsule by mouth daily. Probiotic Product (PRO-BIOTIC BLEND PO) Take by mouth. No facility-administered encounter medications on file as of 04/11/2024. No past medical history on file. Past Surgical History: Procedure Laterality Date NOSE SURGERY 2018 TUBAL LIGATION 1988 History reviewed. No pertinent family history. Social History Socioeconomic History Marital status: Spouse name: Not on file Number of children: Not on file Years of education: Not on file Highest education level: Not on file Occupational History Not on file Tobacco Use Smoking status: Former Current packs/day: 0.00 Types: Cigarettes Quit date: 2010 Years since quittin.8 Smokeless tobacco: Former Vaping Use Vaping status: Former Substance and Sexual Activity Alcohol use: [...] today, the vital signs are as follows: Physical Exam Vitals and nursing note reviewed. [...] normal. Relevant diagnostic data includes the following: I have independently reviewed the following images/tracings: as noted below. Supplemental Information: ELECTROCARDIOGRAM 12/08/2022 [facility] Outside Medical Records: [facility] [place], [place] Diagnosis: MVP Palpitations thought secondary to ventricular ectopy Hyperlipidemia Lipid Labs: 02/14/2021 Total cholesterol: 06/01/2000 LDL: 91 HDL: 47 Triglycerides: 209 Cardiovascular Studies: Transthoracic Echocardiogram: 05/04/2018 Interpretation Summary: The study was technically difficult. Contrast injection was performed. Left ventricular systolic function is normal. The estimated ejection fraction is 70% Trivial mitral valve insufficiency. Trivial tricuspid valve insufficiency. Trivial pulmonic valve insufficiency. Unable to estimate RV systolic pressure/pulmonary artery pressure due to technically difficult study. Diastolic function is indeterminate. Stress Test Report: 05/04/2018 Impression: 1. Technically adequate (% predicted maximal heart rate greater than a 5%) exercise tolerance test 2. Peak exercise ECG with continued ST/T-wave abnormality-more prominent ST segment changes compared to baseline 3. There were occasional PACs pretest, occasional PVCs and ventricular couplets during exercise and recovery 4. Nuclear images pending Impression: 1. Rest and stress SPECT Cardiolite nuclear imaging demonstrate relative uniform tracer uptake in myocardial perfusion appearing within normal limits. 2. The gated Cardiolite study reports an LVEF of 90%. Cardiac Catheterization: 06/01/2018 Conclusions Elevated left ventricular and diastolic pressure (mild) Normal LV size, wall motion, and systolic function LVEF: By LV g 65% Normal coronary arteries Mitral valve: Mild scalloping potentially compatible with mild mitral valve prolapse without obvious mitral regurgitation Coronary angiography Dominance: Right dominant Left heart assessment Left ventricular ejection fraction: By LV-gram 65% Normal LV wall motion Elevated left ventricular end-diastolic pressure LVEDP: 16 mm Hg Left main: Angiographically normal Left anterior descending artery: Angiographically normal Circumflex coronary artery: Angiographically normal Right coronary artery: Angiographically normal Valve findings: Normal aortic valve function Mitral valve: Mild scalloping potentially compatible mild mitral valve prolapse without obvious mitral regurgitation Aortic root: Angiographically normal In summary, Ms. Francisco is managed today for the following issues: Palpitations At the present time she appears to be doing well. She will continue her current medical therapy with her low-dose beta-nicole of metoprolol XL 25 mg p.o. q.day. Murmur, cardiac She does not appear to have a change in her cardiac examination. Her preliminary echocardiographic images did not suggest any hemodynamically significant valvular heart disease. The final images are pending for review. Hyperlipidemia Her lipid labs were reviewed. They appeared to be under good control at this time. She will continue her current medical management of atorvastatin at 40 mg p.o. q.day. I have ordered the following: Diagnoses and all orders for this visit: Palpitations - AK ECG ROUTINE ECG W/LEAST 12 LDS W/I&R Murmur, cardiac Hyperlipidemia, unspecified hyperlipidemia type She will be asked to have an outpatient visit approximately 1 year unless needed sooner. She was agreeable to this approach. We will plan on Return in about 1 year (around 04/11/2025).. If I can be of any further assistance, please do not hesitate to contact me. Sincerely, Clovis Montiel MD, [facility] Motor Coach Operator - Clinical Division of Cardiovascular Medicine Department of Internal Medicine [facility] Please be aware that portions of this note may have been completed with a voice recognition software system and an artificial intelligence system with the knowledge and approval of the patient. Despite efforts to edit the note mis-transcribed words may still be present. 12 Lead EKG performed per provider's order, per policy, and given to Dr. Montiel for interpretation. Medical chargemaster analyst offered to patient prior to sensitive procedure and patient declined documented in this encounter [facility] 04-11-2024 Evaluation + Plan note Associated Problem(s): Hyperlipidemia Her lipid labs were reviewed. They appeared to be under good control at this time. She will continue her current medical management of atorvastatin at 40 mg p.o. q.day. [facility] 04-11-2024 Evaluation + Plan note Associated Problem(s): Murmur, cardiac She does not appear to have a change in her cardiac examination. Her preliminary echocardiographic images did not suggest any hemodynamically significant valvular heart disease. The final images are pending for review. [facility] 04-11-2024 Miscellaneous Notes Associated Problem(s): Hyperlipidemia Her lipid labs were reviewed. They appeared to be under good control at this time. She will continue her current medical management of atorvastatin at 40 mg p.o. q.day. Associated Problem(s): Murmur, cardiac She does not appear to have a change in her cardiac examination. Her preliminary echocardiographic images did not suggest any hemodynamically significant valvular heart disease. The final images are pending for review. Associated Problem(s): Palpitations At the present time she appears to be doing well. She will continue her current medical therapy with her low-dose beta-nicole of metoprolol XL 25 mg p.o. q.day. documented in this encounter [facility] 04-11-2024 Evaluation + Plan note Associated Problem(s): Palpitations At the present time she appears to be doing well. She will continue her current medical therapy with her low-dose beta-nicole of metoprolol XL 25 mg p.o. q.day. [facility] 04-11-2024 History of Presen t illness Narrative Evelyn Francisco was offered and declined a Medical Race Starter for this exam/procedure/test 04/11/2024. documented in this encounter [facility] 12-08-2022 Evaluation + Plan note Associated Problem(s): Hyperlipidemia Hyperlipidemia The patient does have history of hyperlipidemia. She will continue her atorvastatin 20 mg p.o. q.day. A refill has been provided for her. In the interim she will plan to have her future lipid labs performed via her employment annual evaluation. A copy of the lipid labs to be appreciated for continuity of care. [facility] 12-08-2022 Miscellaneous Notes Associated Problem(s): Hyperlipidemia Hyperlipidemia The patient does [...] provided for her. documented in this encounter [facility] 12-08-2022 Evaluation + Plan note Associated Problem(s): Murmur, cardiac Cardiac murmur The patient does have a cardiac murmur. A request has been made for the patient to have a follow-up echocardiogram to reassess her valvular anatomy and physiology. [facility] 12-08-2022 Evaluation + Plan note Associated Problem(s): Palpitations Palpitations At the present time the patient appears to be doing well without any ongoing acute symptoms or adverse events. She will continue her metoprolol succinate 25 mg p.o. q.day. A refill was provided for her. [facility] 12-08-2022 History of Presen t illness Narrative 12 Lead EKG performed per provider's order, per policy, and given to Dr. Montiel for interpretation. Medical chargemaster analyst offered to patient prior to sensitive procedure and patient declined Referring provider: Clovis Theodore DO (General) Primary care provider: Clovis Theodore DO (General) Dear Dr. Theodore, I had the pleasure of seeing your patient, Evelyn Francisco, at the [facility] at [facility] on 12/08/2022. 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 She has undergone previous noninvasive and invasive cardiovascular studies in the past. She has been treated medically with beta-blockers with metoprolol succinate 25 mg p.o. q.day and atorvastatin 20 mg p.o. q.day.She has had her lipid lab evaluation performed through her [facility] yearly laboratory study program. Her previous cardiovascular [...] Sitting) Pulse 51 Ht 1.626 m (5' 4) Wt 73.4 kg (161 lb 12.8 oz) [...] includes the following: No results found for: CHOLESTEROL, TRIG, HDL, LDLCALC, LDLDIRECT, NHCHOL No results found for: SODIUM, POTASSIUM, CHLORIDE, CO2, BUN, CREATSERUM, GLUCOSE No results found for: WBC, WBCCOUNT, WBCFETAL, HGB, HCT, PLATELET, MCV No results found for: TSH, [id number], [id number], TSHBASELINE, TSHULTRASEN, TSHRFT4 No results found for: HGBA1C I have independently reviewed the following reports and/or images/tracings: as noted below. ELECTROCARDIOGRAM 12/05/2022 [facility] Sinus bradycardia Nonspecific T wave abnormality In summary, Ms. Francisco is managed today for the following issues: [...] tablet Metoprolol succinate 25 MG tablet XL AK ECG, CLINIC PERFORMED Overall, patient appears to [...] to contact me. Sincerely, Clovis Montiel MD, [facility] Motor Coach Operator - Clinical [facility] Cardiovascular Medicine Please be aware that portions of this note may have been completed with a voice recognition software system. Despite efforts to edit the note mis-transcribed words may still be present. documented in this encounter [facility] Evaluation note Diagnosis Onset Date Nonrheumatic mitral (valve) prolapse acute Ventricular ectopy acute Hyperlipemia chronic [facility] Work Phone: Evaluation note* Diagnosis Palpitations- Primary Murmur, cardiac Undiagnosed cardiac murmurs Hyperlipidemia, unspecified hyperlipidemia type [facility] information [facility] Work Phone: Evaluation note* Diagnosis Palpitations- Primary Murmur, cardiac Undiagnosed cardiac murmurs Hyperlipidemia, unspecified hyperlipidemia type Palpitations- Primary Murmur, cardiac Undiagnosed cardiac murmurs Hyperlipidemia, unspecified hyperlipidemia type [facility] Palpitations- Primary Murmur, cardiac Undiagnosed cardiac murmurs Hyperlipidemia, unspecified hyperlipidemia type Palpitations- Primary Murmur, cardiac Undiagnosed cardiac murmurs Hyperlipidemia, unspecified hyperlipidemia type Palpitations Murmur, cardiac Undiagnosed cardiac murmurs documented in this encounter [facility] Chief Complaint and Reason for Visit Chief Complaint 1 Y FU Reason for Visit Nonrheumatic mitral (valve) prolapse Ventricular ectopy Hyperlipemia Chief Complaint NEOPLASM Advance Directives No Advanced Directives Records Found Advance Directive Response Recorded Date/ Time Advance Directives No June 01, 2018 9:11am Living Will No October 30, 2019 1 0:44am Power of Railway Track Worker No October 30, 2019 10:44am Advance Directive Response Recorded Date/ Time Advance Directives No June 01, 2018 8:11am Living Will No October 30, 2019 9 :44am Power of Railway Track Worker No October 30, 2019 9:44am Reason for Referral Specialty Diagnoses / Procedures Referred By Contac t Referred To Contact Diagnoses Palpitations Murmur, cardiac Procedures ECHOCARDIOGRAM AK ECHO HEART XTHORACIC,COMPLETE W DOPPLER Clovis Montiel MD [facility] [place] [address] Referral ID Status Reason Start Date Expiration Date V isits Requested Visits Authorized [id number] New Request 12/08/2022 01/02/2024 1 1 Specialty Diagnoses / Procedures Referred By Contac t Referred To Contact Echocardiography Diagnoses Palpitations Murmur, cardiac Procedures ECHOCARDIOGRAM AK ECHO TTHRC R-T 2D W/WOM-MODE COMPL SPEC&COLR D Clovis Montiel MD [address] [place] [address] [place] [address] Referral ID Status Reason Start Date Expiration Date Visits Re quested Visits Authorized [id number] Closed 04/08/2024 05/03/2025 1 1 Summary Purpose Family History No Family History Records Found Additional Source Comments Goals (unrecognized section and content) Goals may be documented in a n alternate sectionGoals may be documented in an alternate section Reason for Visit (unrecogniz ed section and content) Reason Comments Establish Care Pt states she is ove rdue for cardiac follow up. No onset cardiac symptoms. Reason Comments Follow-up 1 yr follow-up. Pt r eport no concerns. Specialty Diagnoses / Procedures Referred By Contac t Referred To Contact Echocardiography Diagnoses Palpitations Murmur, cardiac Procedures ECHOCARDIOGRAM AK ECHO TTHRC R-T 2D W/WOM-MODE COMPL SPEC&COLR D Clovis Montiel MD [address] [address] Referral ID Status Reason Start Date Expiration Date Visits Re quested Visits Authorized [id number] Closed 04/08/2024 05/03/2025 1 1 Care Teams (unrecognized sec tion and content) Mower Operator Relationship Specialty Start Date End Date Clovis Theodore MD [address] [facility] [address] [place], [place] [id number] PCP - General Family Medicine 11/04/22 Team Status: Active Member Role Status Dates Dr. Terry Mcdonnell MD Family Provider Active Dr. Clovis Theodore MD Primary Care Provider Active Team Status: Inactive Member Role Status Dates Dr. Clovis Theodore MD Primary Care Provi dona, Attending Provider, Referring Provider Active Mower Operator Relationship Specialty Start Date End Date Clovis Theodore MD [address] [facility] [address] [place], [place] [id number] PCP - General Family Medicine 11/04/22 Mower Operator Relationship Specialty Start Date End Date Clovis Theodore MD [address] [facility] [address] [place], [place] [phone] PCP - General Family Medicine 11/04/22 INFORMATION SOURCE (unrecogn ized section and content) DATE CREATED AUTHOR 04/12/2024 [facility] DATE CREATED AUTHOR AUTHOR'S CARRIE ATDAMASO 03/22/2025 [facility] FOR RECORDS PERTAINING TO PATIENTS WHO [...] BE BASED ON THE PRIMARY CLINICAL RECORDS. [facility] [employer] [facility]. provides no warranty or guarantee of the accuracy or completeness of information in this document.
== END | disposition home or self-care (01) ==
LOC: OPBI 11:43
PROVIDERS: PCP Family Medicine; Referring Provider Family Medicine; Visit Provider Family Medicine
DX: Z12.31 Encounter for screening mammogram for malignant neoplasm of breast (principal); Z80.3 Family history of malignant neoplasm of breast
CPT/HCPCS: 77063; 77067